=== PATIENT | male | born 1970 | race Caucasian/White ===

== ENCOUNTER 2018-06-18 22:39 | Emergency (ER) | payer OTHER, SELFPAY ==
[2018-06-18 22:40] VITALS: BP 132/75; PULSE 102; RESP 18; TEMP 36.6; O2SAT 98; BMI 28.6
--- NOTE | 2018-06-18 22:55 | US_ITS ---
STUDY: VENOUS DOPPLER ULTRASOUND - BILATERAL LOWER EXTREMITIES REASON FOR EXAM: Male, 48 years old. Left lower leg swelling and redness TECHNIQUE: Ultrasound evaluation of the deep vein system to include garduno-scale imaging and compression was performed. Garduno-scale imaging and Doppler sonographic evaluation, including duplex spectral analysis and qualitative color flow sonography, was performed. COMPARISON: None. FINDINGS: RIGHT LEG Common Femoral Vein: Normal compression, spontaneity and augmentation. Normal color Doppler. Common Femoral Vein/Greater Saphenous Junction: Normal compression, spontaneity and augmentation. Normal color Doppler. Deep Femoral Vein: Normal compression, spontaneity and augmentation. Normal color Doppler. Femoral Proximal: Normal compression, spontaneity and augmentation. Normal color Doppler. Femoral Middle: Normal compression, spontaneity and augmentation. Normal color Doppler. Femoral Distal: Normal compression, spontaneity and augmentation. Normal color Doppler. Popliteal Vein: Normal compression, spontaneity and augmentation. Normal color Doppler. Posterior Tibial Vein: Normal compression, spontaneity and augmentation. Normal color Doppler. Peroneal Vein: Normal compression, spontaneity and augmentation. Normal color Doppler. LEFT LEG Common Femoral Vein: Normal compression, spontaneity and augmentation. Normal color Doppler. Common Femoral Vein/Greater Saphenous Junction: Normal compression, spontaneity and augmentation. Normal color Doppler. Deep Femoral Vein: Normal compression, spontaneity and augmentation. Normal color Doppler. Femoral Proximal: Normal compression, spontaneity and augmentation. Normal color Doppler. Femoral Middle: No compression, spontaneity and augmentation. No color Doppler. Femoral Distal: No compression, spontaneity and augmentation. No color Doppler. Popliteal Vein: No compression, spontaneity and augmentation. No color Doppler. Posterior Tibial Vein: No compression, spontaneity and augmentation. No color Doppler. Peroneal Vein: Normal compression, spontaneity and augmentation. Normal color Doppler. Lesser saphenous venous thrombosis. US/Venous Duplex Imag/Tanvir Extrem IMPRESSION: DVT posterior tibial to the mid femoral vein and lesser saphenous vein Electronically Signed: Torres Laguna MD at 23:44 EST , Service support ,
--- NOTE | 2018-06-18 23:54 | ED.DCSUM_ITS ---
- ER Visit Summary Date of Service: 06/18/18 Chief Complaint: Left leg pain and swelling History of Present Illness: The patient is a 48 M who presents with left leg pain and swelling. It began 3 days ago. He had a history of similar symptoms 2 months ago and was diagnosed with superficial thrombosis but no DVT. He states that today his swelling and pain were increased. He describes it as moderate in severity. He denies any chest pain shortness of breath lightheadedness or dizziness. He frequently travels for work and drives often. He states that recently in a 12-hour day he was only out of the vehicle for about an hour and a half. He is also a heavy smoker. No prior history of DVT pulmonary embolism no known cancer no known coagulopathies. He was initially seen at an outside emergency department he did not have ultrasound available at the time so they contacted us and the patient was sent here for ultrasound. They did draw blood work prior to sending the patient. Physical Examination: Afebrile heart rate 102 vitals otherwise normal Moist mucous membranes Heart regular rate and rhythm Lungs clear Abdomen soft Left lower extremity edema and mild erythema he has tenderness on palpation in the calf he has an easily palpable dorsalis pedis pulse brisk capillary refill normal sensation light touch normal motor function Test Results: Labs were faxed to us from [place]. BMP notable for sodium 132, glucose 189. CBC notable for hemoglobin 13.6. Platelets are 113. INR normal at 1.0. prototype technician called me with venous duplex results which were positive for DVT from femoral vein to posterior tibial vein. Emergency Department Course and Treatment: Patient does not have signs or symptoms to suggest pulmonary embolism. On exam he does not have phlegmasia cerulea dolens or phlegmasia alba dolens. We will start patient on Xarelto. He was given his first dose here. He was given clear signs and symptoms to monitor for and signs and symptoms which should prompt immediate return to the emergency department for reevaluation. All questions answered bedside. Patient and family agreeable to plan. Patient does not have a primary care physician. He was referred to Dr. Mendez who is next on the no doc PCP referral list. Treatment Plan: [] Disposition: Discharge Impression: Left lower extremity DVT This note was generated with TreS[employer] dictation software. It may contain incorrect words, spelling, and punctuation that were not noted in review of the chart prior to signing ED Disposition - Plan for ED Patient: Chief Complaint: Lower Extremity Injury Referrals: Care Physician,No Primary [Primary Care Provider] -
--- NOTE | 2018-06-18 23:56 | ED.DEP ---
ED Disposition - Plan for ED Patient: Chief Complaint: Lower Extremity Injury Instructions: ED DVT Prescriptions: Rivaroxaban [Xarelto] 15 mg PO BID #42 tab Referrals: Care Physician,No Primary [Primary Care Provider] - Tomas Mendez MD [STAFF PHYSICIAN] -
[2018-06-19] MEDS: Rivaroxaban 15 MG Tablet PO (00:05)
== END 2018-06-19 00:09 | disposition home or self-care (01) ==
LOC: ED 23:35
PROVIDERS: Emergency Provider Emergency Medicine
DX: I82.402 Acute embolism and thrombosis of unspecified deep veins of left lower extremity (principal); Z72.0 Tobacco use
CPT/HCPCS: 93970; 99283

== ENCOUNTER 2018-06-20 02:18 | Inpatient (IN) | payer OTHER, SELFPAY ==
[2018-06-20] VITALS (13 sets, daily range): BP systolic 126–152; BP diastolic 74–88; PULSE 66–96; RESP 16–20; TEMP 36.7–37.1; O2SAT 95–100; BMI 29.1; BMI 28.0
--- NOTE | 2018-06-20 03:43 | EKG12_ITS ---
Test Reason : EDEMA Blood Pressure : / mmHG Vent. Rate : 079 BPM Atrial Rate : 079 BPM P-R Int : 156 ms QRS Dur : 106 ms QT Int : 352 ms P-R-T Axes : 034 046 023 degrees QTc Int : 403 ms Normal sinus rhythm Normal ECG Confirmed by QUINCY ELAM, CLEOPATRA ([id number]), fashion editor PRECIOUS YUN ([id number]) on 06/22/2018 4:16:07 PM Referred By: BARBARA Confirmed By:CLEOPATRA MATHEW MD
--- NOTE | 2018-06-20 03:43 | CT_ITS ---
STUDY: CTA CHEST REASON FOR EXAM: Male, 48 years old. Deep venous thrombus. RADIATION DOSAGE (If Supplied By Facility): CTDIvol = ( 12.34 ) mGy, DLP = ( 572.85 ) mGycm TECHNIQUE: The examination was performed with the intravenous administration of 100 ml of Isovue 370 contrast material. Post-processing of the angiographic images was performed, with multiplanar reformation and 3D reconstruction. Individualized dose optimization techniques were used for this CT. COMPARISON: Venous Doppler ultrasound June 18, 2018. FINDINGS: Normal enhancement of the main pulmonary artery and right and left pulmonary arteries. Filling defects involving branches of the left lower lobe pulmonary artery compatible with pulmonary emboli and axial image 100 series 2. Normal thoracic aorta and visualized great vessels. There is no demonstrated aortic dissection. Normal heart and pericardium. Enlarged AP window lymph nodes with the largest measuring 1.7 x 1.3 cm. Normal hilar regions. Normal visualized trachea and bronchi. The lungs are well expanded. 1.6 cm cavitary nodule posterior aspect of the left upper lobe. Normal chest wall structures. Normal osseous structures. Normal visualized upper abdomen. CT/CTA Chest W/WO Contrast IMPRESSION: Small pulmonary emboli involving branches of the left lower lobe pulmonary artery. Left upper lobe cavitary lesion. Considerations include cavitating pneumonia, tuberculosis, rare fungal infections or less likely malignancy. Mediastinal lymphadenopathy. N.B. : The above information has been verbally conveyed by Timothy Jones MD to Dr. Brett MD, on 06/20/2018 05:30:28 (ET). Electronically Signed: Timothy Jones MD at 5:31 EST , Service support ,
--- NOTE | 2018-06-20 03:46 | ED.RN ---
NO OLD EKGS IN MUSE
[2018-06-20] MEDS: 0.9% Normal Saline 1,000 ML 999 ML IV (04:04)
[2018-06-20 04:16] LABS: International Normalized Ratio 1.5; Prothrombin Time (Protime)PT. 18.2 SECONDS (11.7-14.9)
[2018-06-20 04:21] LABS: Absolute Lymphocyte Count 1.66 X10^3/ul (0.83-4.51); Absolute Neutrophil Count 4.6 X10^3/uL (2.0-7.7); Basophil# 0.01 X10^3/uL; Basophil% 0.1 % (0-1); Eosinophil# 0.15 X10^3/uL; Eosinophils% 2.1 % (0-5); Hematocrit 42.8 % (40-54); Hemoglobin 13.8 g/dl (13.0-16.5); Lymphocyte # 1.66 X10^3/ul (4.0); Lymphocyte % 23.1 % (19-41); Mean Corp Hgb Conc 32.2 g/gl (32-36); Mean Corpuscular Hgb 29.2 pg (27.0-32.0); Mean Corpuscular Volume 90.5 fL (80-94); Mean Platelet Vol. 10.6 fl (6.2-12.0); Monocyte% 11.1 % (0-10); Neutrophil # 4.55 X10^3/uL (2.7-7.7); Neutrophil % 63.3 % (47-70); POSITIVE COUNT NO; POSITIVE DIFFERENTIAL NO; POSITIVE MORPHOLOGY NO; Platelet Count 126 K/mm3 (150-450); RBC Distribution Width CV 14.4 % (11.6-14.6); RBC Distribution Width SD 47.2 fl (35.1-43.9); Red Blood Count 4.73 M/mm3 (4.6-6.2); White Blood Count 7.2 K/mm3 (4.4-11.0)
[2018-06-20 04:24] LABS: Anion Gap 8 (5-15); BUN 14 mg/dL (7-18); BUN/Creat Ratio 12.8 RATIO (10-20); Calcium,Total 8.7 mg/dL (8.5-10.1); Chloride 107 mmol/L (98-107); Creatinine, Serum 1.09 mg/dL (0.70-1.30); EST Glomerular Filtration Rate 77 mL/min (>60); Est Glom Filt Rate - Afr Amer 93 mL/min (>60); Estimated Creatinine Clearance 93.66 ml/min; Glucose 102 mg/dL (74-106); Potassium 4.1 mmol/L (3.5-5.1); Sodium Level 141 mmol/L (136-145)
--- NOTE | 2018-06-20 05:42 | HP.PCM_ITS ---
Problem List (1) Pulmonary embolism Status: Acute Qualifiers: Chronicity: acute (2) Left leg DVT Status: Acute Qualifiers: Affected thrombotic vein of extremity: unspecified vein of extremity Chronicity: acute Qualified Code(s): I82.402 - Acute embolism and thrombosis of unspecified deep veins of left lower extremity (3) Cavitary lesion of lung Status: Acute (4) Elevated BP without diagnosis of hypertension Status: Acute (5) Tobacco use Status: Chronic History of Present Illness Date of Admission: 06/20/18 Chief Complaint: Worsened LLE edema, pain, lightheadness, dizziness. The patient is a 48 y/o M w/ PMHx: Tobacco use, Recent LLE DVT Dx on 06/18/18 (DVT US w/ venous duplex results which were positive for DVT from femoral vein to posterior tibial vein) following onset LLE pain, edema suspected secondary to his 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 [place] ED on 06/20/18 with history of onset increasing LLE pain, edema as well as lightheadedness, dizziness and difficulty ambulating secondary to the severity of his LLE pain. He also notes history of URI w/ cough, congestion, rhinorrhea, dyspnea ~ 1 month prior, notes his entire work staff contracted the same illness and since has improved, but still has occasional cough. 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 In the ED work-up included T 98.1, heart rate 90, BP 144/87, respiratory rate 16, 98% on room air, CBC with WBC 7.2, hemoglobin 13.8, platelet 126 without market shift, coags with PT 18.2, INR 1.5, BMP unremarkable, troponin <0.015, CTPA with small pulmonary emboli involving branches of the left lower lobe pulmonary artery, left upper lobe cavi tary lesion concerning for possible pneumonia, tuberculosis, rare fungal infection with less likely malignancy as well as mediastinal lymphadenopathy. In the ED patient administered NS and initiated on heparin drip. Past Medical History Past Medical History (Chronic Problems): Chronic Problems Tobacco use (Chronic) Allergies No Known Allergies Allergy (Verified 06/20/18 02:22) Home Medications: Ambulatory Orders Medication Instructions Recorded Rivaroxaban [Xarelto] 15 mg PO BID #42 tab 06/18/18 Surgical History: no surgical history Psychiatric History: No pertinent psych hx Lives: Spouse/ Significant Other Smoking Status: Current every day smoker - 2 ppd since teen. Tobacco Use: Cigarettes Alcohol: None Drugs: None - *Family History Maternal History Items: Cancer Paternal History Items: Heart Disease, Hypertension Review of Systems Constitutional: Reports: Malaise, Weakness, Fatigue. Denies: Chills, Fever, Weight Change HEENT: Denies: Head Aches, Sinus Congestion, Sinus Drainage Cardiovascular: Reports: Light Headedness. Denies: Chest Pain, Palpitations Respiratory: Reports: Cough. Denies: Shortness of breath at rest, Sputum production Gastrointestinal: Denies: Abdominal Pain, Nausea, Vomiting Genitourinary: Denies: Dysuria Musculoskeletal: Reports: Leg Pain. Denies: Joint Pain, Joint Tenderness Skin: Denies: Rash, Wounds Neurological: Denies: Numbness, Tingling, Focal weakness Psychiatric: Denies: Anxiety, Depression, Homicidal Ideations, Suicidal Ideations Hematologic/ Lymphatic: Denies: Easy Bruising, Easy Bleeding VTE Information - Inpt Only VTE Present on Admission: No VTE Mechan Device Prophylaxis: SCD's VTE Pharm Prophylaxis ordered?: Yes Patient Problems: Active and Suspected Problems Pulmonary embolism (Acute) Left leg DVT (Acute) Cavitary lesion of lung (Acute) Elevated BP without diagnosis of hypertension (Acute) Subjective: Seated upright in the ED bed, fatigued appearing, ongoing LLE pain he notes. Objective: Physical Examination: General: awake, alert, oriented x 3 and cooperative, seated upright in the ED bed, notes discomfort to the LLE. Skin: normal color, turgor, no icterus, cyanosis. HEENT: AT/NC, EOMI, PERRLA, mildly dry MM, no carotid bruits or JVD noted. Lungs: Diminished BS BL, > bases, mild effort, no rales, ronchi or wheezing. Heart: regular rate and rhythm; no gallop, rub audible. Abdomen: soft, NTTP, ND, normal BS, no HSM. Extremities: no cyanosis, clubbing, LLE notable edema ankle to proximal thigh, TTP. Neurological: patient awake, alert, oriented x 3; cognitive function intact; pupils equally reactive to light and accomodation; cranial nerves II-XII grossly normal, moving all 4 extremities, no focal deficits, strength moderately globally decreased secondary to acute presentation. Psychiatric: affect appears fatigued, no acute evidence of depressive or anxiety feelings. - Physical Exam Vital Signs Temp Pulse Resp BP Pulse Ox 98.1 F 90 16 144/87 H 98 06/20/18 02:19 06/20/18 02:19 06/20/18 02:19 06/20/18 02:19 06/20/18 02:19 Oxygen Delivery Method Room Air Weight: 220 lb 10.923 oz Body Mass Index (BMI) 29.1 Laboratory Tests Past 24 Hrs 06/20/18 06/20/18 06/20/18 03:50 03:50 03:50 WBC 7.2 RBC 4.73 Hgb 13.8 Hct 42.8 MCV 90.5 MCH 29.2 MCHC 32.2 RDW 14.4 RDW Differential 47.2 H Plt Count 126 L MPV 10.6 Immature Gran % (Auto) 0.300 Neut % (Auto) 63.3 Lymph % (Auto) 23.1 Monona % (Auto) 11.1 H Eos % (Auto) 2.1 Baso % (Auto) 0.1 Absolute Neuts (auto) 4.6 Absolute Lymphs (auto) 1.66 Total Counted Not Reportable PT 18.2 H INR 1.5 Sodium 141 Potassium 4.1 Chloride 107 Carbon Dioxide 26.0 Anion Gap 8 BUN 14 Creatinine 1.09 Estim Creat Clear Calc 93.66 Est GFR (MDRD) Af Amer 93 Est GFR (MDRD) Non-Af 77 BUN/Creatinine Ratio 12.8 Glucose 102 Calcium 8.7 Troponin I < 0.015 Assessment/Plan All Active Problems Pulmonary embolism (Acute) Left leg DVT (Acute) Cavitary lesion of lung (Acute) Elevated BP without diagnosis of hypertension (Acute) The patient is a 48 y/o M w/ PMHx: Tobacco use, Recent LLE DVT Dx on 06/18/18 following onset LLE pain, edema suspected secondary to his 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 [place] ED on 06/20/18 with history of onset increasing LLE pain, edema as well as lightheadedness, dizziness and difficulty ambulating secondary to the severity of his LLE pain. (1) Lightheadedness, Dizziness w/ recent acute LLE Extensive DVT secondary to now Acute Pulmonary Embolism: EKG without acute findings, CTPA with small pulmonary emboli involving branches of the left lower lobe pulmonary artery, left upper lobe cavitary lesion concerning for possible pneumonia, tuberculosis, rare fungal infection with less likely malignancy as well as mediastinal lymphadenopathy. Patient w/ notable driving history with infrequent breaks as possible risk for DVT/PE; however, findings on CTPA w/ cavitary lesion concerning. Will admit to PCU, maintain on cardiac telemetry. Will obtain ECHO, BNP. Will maintain on heparin drip. (2) Incidentally Noted left upper lobe cavitary lesion: CTPA w/ noted left upper lobe cavitary lesion concerning for possible pneumonia, tuberculosis, rare fungal infection with less likely malignancy as well as mediastinal lymphadenopathy, will consult Pulmonary medicine, QF gold, sputum, urine an tigens, respiratory viral panel requested. No history of incarceration. Was in the and did travel [id number]. (3) Acute Intractable LLE Pain w/ Recent Extensive Acute LLE DVT Dx: Recent DVT US 06/18/18 w/ venous duplex results which were positive for DVT from femoral vein to posterior tibial vein, concern for worsened status, will admit to [facility], transition to heparin drip, maintain on fall precautions, frequent positioning, po/IV pain regimen, oral/IV PRN regimen, anti-emetics. If not improving or continued LE worsened edema may need to consider CTA LLE with runoff as well as vascular consultation. (4) Tobacco Abuse: Encouraged cessation, inpatient consultation per RT, NR if desired. (5) Elevated BP without HTN Dx: Elevated BP, possibly secondary to pain, continue to monitor, PRN hydralazine. (6) DVT Prophylaxis: SCD RLE, heparin drip as noted. Code Visit Inpatient E&M: 22438 Init Hosp L3
--- NOTE | 2018-06-20 05:47 | ED.VISSUMM ---
- ER Visit Summary Date of Service: 06/20/18 Chief Complaint: DVT History of Present Illness: The patient is a 48 M who presents with a DVT. I recently saw him in the emergency department one day ago. He was diagnosed with stents of DVT at that point from mid femoral vein to posterior tibial vein. We started him on Xarelto. He was given clear return precautions. He states that he has developed increased pain and swelling in the last day. He has been compliant with his Xarelto. His pain is really only when he ambulates however. When laying with his leg elevated he does not really have significant pain. Today however he also developed some lightheadedness. He states he had to sit down. No associated chest pain or shortness of breath. No vomiting. No abdominal pain. Denies any weakness or paresthesias. Physical Examination: Afebrile vitals unremarkable Resting comfortably no distress Moist mucous membranes Heart regular rate and rhythm Lungs clear Abdomen soft Patient does have edema of the left lower extremity only no edema on the right he has some mild erythema of the left lower leg his muscle compartments are soft there is a palpable cord in the calf he has a an easily palpable 2+ dorsalis pedis pulse with brisk capillary refill and normal sensation light touch Test Results: Labs notable for platelets 126, INR 1.5. Troponin negative. EKG shows sinus rhythm at a rate of 79. CTA of the chest shows small left lower lung pulmonary emboli as well as a cavitary lesion in the left upper lobe. Emergency Department Course and Treatment: Patient does have small pulmonary emboli. Given the extent of his DVT and increasing pain and swelling he will be admitted. After discussion with hospitalist we will transition to heparin which they will start on the floor. I also discussed the findings of the cavitary lesion with the patient. Plan is for pulmonary consult as an inpatient. He does not have infectious symptoms such as fevers cough shortness of breath. He does not have leukocytosis. He is a heavy smoker. 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 Treatment Plan: [] Disposition: Admit Impression: Pulmonary embolism Cavitary left upper lung lesion This note was generated with Bridgest[employer] dictation software. It may contain incorrect words, spelling, and punctuation that were not noted in review of the chart prior to signing ED Disposition - Plan for ED Patient: Chief Complaint: Edema Referrals: Care Physician,No Primary [Primary Care Provider] -
--- NOTE | 2018-06-20 06:37 | NURSING ---
119 WHITE PE, CAVITARY LUNG LESION
--- NOTE | 2018-06-20 06:51 | ECHOD_ITS ---
Reason For Study: EMBOLI Procedure This was a 2D Doppler, Color Flow transthoracic echocardiogram. Exam performed portable in patient room. Left Ventricle Normal LV size. Left ventricular systolic function is normal. The estimated ejection fraction is 55 %. Normal diastology for age. No regional wall motion abnormalities noted. Right Ventricle Normal RV size. Normal systolic function. Atria Normal left atrium. Normal right atrium. Mitral Valve Normal mitral valve. Tricuspid Valve Normal tricuspid valve. Aortic Valve Normal aortic valve. Trisinus/trileaflet aortic valve. Pulmonic Valve Normal pulmonic valve. Great Vessels Normal aortic root. The pulmonary artery is normal size. Normal inferior vena cava. Pericardium/Pleural No pericardial effusion. MMode/2D Measurements & Calculations LVIDd: 4.9 cm IVSd: 1.3 cm Ao root diam: 4.1 cm LVIDs: 3.5 cm LVPWd: 1.1 cm RVDd: 4.1 cm FS: 28.8 % LAV(MOD-bp): 68.1 ml LA A4 area: 21.2 cm2 LA dimension(2D): 4.0 cm LAV(MOD-bp) Indexed: 30.5 ml/m2 LAV(MOD-sp2): 63.7 ml LAV(MOD-sp4): 63.2 ml RA A4 area: 14.0 cm2 Time Measurements MV dec time: 0.28 sec Doppler Measurements & Calculations MV E max satya: 53.5 cm/sec Lat Peak E' Satya: 10.3 cm/sec Med Peak E' Satya: 8.2 cm/sec MV A max satya: 36.7 cm/sec E/E' lat: 5.2 E/E' med: 6.5 MV E/A: 1.5 Ao V2 max: 104.7 cm/sec LV V1 max: 84.9 cm/sec Ao max P.4 mmHg LV V1 max P.9 mmHg Interpretation Summary Normal LV size. Left ventricular systolic function is normal. The estimated ejection fraction is 55 %. Normal diastology for age. Structurally normal valves. Ordering Physician: Mattie Serrano Performed By: Thea Green, DELORES, RVT
[2018-06-20 07:54] LABS: Magnesium 1.9 mg/dL (1.6-2.6); Partial Thromboplast Time 36.1 Seconds (24.1-36.2)
[2018-06-20 08:08] LABS: BNP,B-Type NATRIURETIC PEPTIDE 5.5 pg/mL (0-100)
[2018-06-20] MEDS: HEPARIN/D5w 25,000 UNITS 25,000 UNITS/250 ML IV.SOLN. 14 UNITS IV (08:16)
[2018-06-20] MEDS: 0.9% Normal Saline 1,000 ML 125 ML IV (08:18)
[2018-06-20] MEDS: Famotidine 20 MG Tablet PO ×2 (08:18→22:23)
[2018-06-20] MEDS: Heparin Injection (Vial) 5,000 UNIT/ML VIAL 7500 UNIT IV (08:19)
--- NOTE | 2018-06-20 08:30 | PCM.PN.BLA ---
Progress Note Patient is a 48-year-old gentleman diagnosed with left lower extremity extensive DVT on 06/18/2018 discharged home on Xarelto took 2 doses presented with lightheadedness and dizziness imaging studies demonstrated acute pulmonary embolism. Patient admitted to a monitored bed patient is currently undergoing evaluation. Lightheadedness, Dizziness w/ recent acute LLE Extensive DVT secondary to now Acute Pulmonary Embolism patient was also found to have a left upper lobe cavitary lesion. Started on heparin admitted to a monitored bed with consultation placed to pulmonary medicine Patient seen and examined. His initial assessment including history and physical diagnostic data and management orders reviewed. Case was discussed with patient as well as the . Clinical Impression(s) from Imaging Studies Chest CTA 06/20/18 03:43 IMPRESSION: Small pulmonary emboli involving branches of the left lower lobe pulmonary artery. Left upper lobe cavitary lesion. Considerations include cavitating pneumonia, tuberculosis, rare fungal infections or less likely malignancy. Mediastinal lymphadenopathy. N.B. : The above information has been verbally conveyed by Timothy Jones MD to Dr. Brett MD, on 06/20/2018 05:30:28 (ET). Electronically Signed: Timothy Jones MD at 5:31 EST , Service support ,
--- NOTE | 2018-06-20 08:42 | PN_ITS ---
Progress Note Patient is a 48-year-old gentleman diagnosed with left lower extremity extensive DVT on 06/18/2018 discharged home on Xarelto took 2 doses presented with lightheadedness and dizziness imaging studies demonstrated acute pulmonary embolism. Patient admitted to a monitored bed patient is currently undergoing evaluation. Lightheadedness, Dizziness w/ recent acute LLE Extensive DVT secondary to now Acute Pulmonary Embolism patient was also found to have a left upper lobe cavitary lesion. Started on heparin admitted to a monitored bed with co nsultation placed to pulmonary medicine Patient seen and examined. His initial assessment including history and physical diagnostic data and management orders reviewed. Case was discussed with patient as well as the . Clinical Impression(s) from Imaging Studies Chest CTA 06/20/18 03:43 IMPRESSION: Small pulmonary emboli involving branches of the left lower lobe pulmonary artery. Left upper lobe cavitary lesion. Considerations include cavitating pneumonia, tuberculosis, rare fungal infections or less likely malignancy. Mediastinal lymphadenopathy. N.B. : The above information has been verbally conveyed by Timothy Jones MD to Dr. Brett MD, on 06/20/2018 05:30:28 (ET). Electronically Signed: Timothy Jones MD at 5:31 EST , Service support ,
--- NOTE | 2018-06-20 09:28 | NURSING ---
report called to Lucila DESIR
--- NOTE | 2018-06-20 10:14 | PCM.CONS.GEN ---
Problem List (1) Pulmonary embolism Status: Acute Qualifiers: Chronicity: acute (2) Left leg DVT Status: Acute Qualifiers: Affected thrombotic vein of extremity: unspecified vein of extremity Chronicity: acute Qualified Code(s): I82.402 - Acute embolism and thrombosis of unspecified deep veins of left lower extremity (3) Cavitary lesion of lung Status: Acute (4) Tobacco use Status: Chronic (5) Elevated BP without diagnosis of hypertension Status: Acute Reason for Consult Date of Consultation: 06/20/18 Reason for Consultation: Abnormal CT History of Present Illness: The patient is a 48 year old M, with no reported past medical history, who presented to [facility] on 06/20/2018 secondary to acute left lower extremity pain associated with a DVT. Patient was seen previously in the emergency room with complaints of left lower extremity pain. Patient had originally had a superficial phlebitis, per progressed to a DVT. Patient was placed on Xarelto therapy on Thursday. Patient's pain continued to progress, so he was recommended to come back to the emergency room. In the emergency room, patient had a CT scan of the chest and noted to have pulmonary emboli. Patient was also noted to have a cavitary lesion of the left upper lobe. Patient was placed on a heparin drip and admitted to the floor. On my arrival, patient was not reporting any dyspnea, but stated that his exertional tolerance was significantly limited secondary to left lower extremity pain. Patient denied any fever, chills, nausea, vomiting or diaphoresis. No chest pain is reported. Patient did not have any weakness or paresthesia, but stated that his ability to stand was severely limited secondary to pain. Patient stated dangling his left leg led to severe pain. Patient denies any unintentional weight loss. Patient denies any hemoptysis. Patient does have a chronic productive cough of clear sputum, typically with waking in the morning. Patient does report a [id number] smoking history and denied any previous history of abnormal CT scans. 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 Patient does report being in the previously and stationed in [place]. Patient denies any history of tuberculosis. Patient has not been incarcerated. Patient is unaware of a family history of cancer or clotting disorders. Patient has never had a DVT previously. Patient denies any illicit drug use or excessive alcohol. Review of systems otherwise negative x10 systems. Past Medical History Past Medical History (Chronic Problems): Chronic Problems Tobacco use (Chronic) Allergies No Known Allergies Allergy (Verified 06/20/18 02:22) Home Medications: Ambulatory Orders Medication Instructions Recorded Rivaroxaban [Xarelto] 15 mg PO BID #42 tab 06/18/18 Surgical History: no surgical history Psychiatric History: No pertinent psych hx Lives: Spouse/ Significant Other Smoking Status: Current every day smoker Tobacco Use: Cigarettes Alcohol: None Drugs: None - *Family History Maternal History Items: Cancer Paternal History Items: Heart Disease, Hypertension Review of Systems Comment: See HPI Patient Problems: Active and Suspected Problems Pulmonary embolism (Acute) Left leg DVT (Acute) Cavitary lesion of lung (Acute) Elevated BP without diagnosis of hypertension (Acute) Objective: CT scan of the chest was personally reviewed showing left lower lobe pulmonary emboli, apical emphysematous changes and a 1.2 x 1.6 cavitary lesion in the posterior aspect of the left upper lobe. No lytic lesions of the spine were appreciated. Mediastinal lymphadenopathy was appreciated. - Physical Exam General: Alert, Oriented x3, Cooperative, No apparent distress, Well developed, Well nourished, - - Speaks in full sentences. HEENT: Atraumatic, PERRLA, EOMI, Normocephalic, - - No scleral icterus or injection noted. Oral: Moist Mucosa, No Gingival or Mucosal Lesions/ Ulcerations Neck: Supple, No JVD, No Nodes, Trachea Midline Lungs: No rhonchi, No wheeze, No rales, Diminished, - - Symmetric expansion. No dullness to percussion. Cardiovascular: Regular rate, Regular Rhythm, Normal S1, Normal S2, No murmurs, No rub noted, No Gallop Abdomen: Bowel Sounds Present, Soft, Non Tender, Non-Distended Extremities: No clubbing, No cyanosis, No edema, Capillary Refill Less than 3 Seconds Skin: No rashes, No breakdown Musculoskeletal: No Tenderness to Palpation of Joints or Extremities Lymphatic: No Cervical, Supraclavicular, or Inguinal Adenopathy Neurological: Cranial nerves II-XII grossly intact, Neuro grossly intact, Motor Exam 5/5 strength throughout Psych/Mental Status: Alert and oriented to time, place, person, mood and affect Vital Signs Temp Pulse Resp BP Pulse Ox 36.9 C 74 16 135/83 H 96 06/20/18 07:09 06/20/18 07:09 06/20/18 07:09 06/20/18 07:09 06/20/18 07:10 Oxygen Delivery Method Room Air Weight: 99 kg Body Mass Index (BMI) 28.0 Microbiology Past 72 Hours 06/20/18 08:00 Legionella Antigen - Final Urine, Random 06/20/18 08:00 Streptococcus pneumoniae Antigen (M - Final Urine, Clean Catch Laboratory Tests Past 24 Hrs 06/20/18 06/20/18 06/20/18 03:50 03:50 03:50 WBC 7.2 RBC 4.73 Hgb 13.8 Hct 42.8 MCV 90.5 MCH 29.2 MCHC 32.2 RDW 14.4 RDW Differential 47.2 H Plt Count 126 L MPV 10.6 Immature Gran % (Auto) 0.300 Neut % (Auto) 63.3 Lymph % (Auto) 23.1 [place] % (Auto) 11.1 H Eos % (Auto) 2.1 Baso % (Auto) 0.1 Absolute Neuts (auto) 4.6 Absolute Lymphs (auto) 1.66 Total Counted Not Reportable PT 18.2 H INR 1.5 APTT Sodium 141 Potassium 4.1 Chloride 107 Carbon Dioxide 26.0 Anion Gap 8 BUN 14 Creatinine 1.09 Estim Creat Clear Calc 93.66 Est GFR (MDRD) Af Amer 93 Est GFR (MDRD) Non-Af 77 BUN/Creatinine Ratio 12.8 Glucose 102 Calcium 8.7 Magnesium Troponin I < 0.015 B-Natriuretic Peptide TB Test (QFT) Nil TB Test (QFT) Mitogen TB Test (QFT) Antigen TB Test Antigen - Nil TB Test (QFT) TB Positive Criteria TB Test (QFT) Interp Miscellaneous Test 06/20/18 06/20/18 06/20/18 07:06 07:06 07:06 WBC RBC Hgb Hct MCV MCH MCHC RDW RDW Differential Plt Count MPV Immature Gran % (Auto) Neut % (Auto) Lymph % (Auto) [place] % (Auto) Eos % (Auto) Baso % (Auto) Absolute Neuts (auto) Absolute Lymphs (auto) Total Counted PT INR APTT Sodium Potassium Chloride Carbon Dioxide Anion Gap BUN Creatinine Estim Creat Clear Calc Est GFR (MDRD) Af Amer Est GFR (MDRD) Non-Af BUN/Creatinine Ratio Glucose Calcium Magnesium 1.9 Troponin I B-Natriuretic Peptide 5.5 TB Test (QFT) Nil Cancelled TB Test (QFT) Mitogen Cancelled TB Test (QFT) Antigen Cancelled TB Test Antigen - Nil Cancelled TB Test (QFT) Cancelled TB Positive Criteria Cancelled TB Test (QFT) Interp Cancelled Miscellaneous Test 06/20/18 06/20/18 07:06 07:06 WBC RBC Hgb Hct MCV MCH MCHC RDW RDW Differential Plt Count MPV Immature Gran % (Auto) Neut % (Auto) Lymph % (Auto) [place] % (Auto) Eos % (Auto) Baso % (Auto) Absolute Neuts (auto) Absolute Lymphs (auto) Total Counted PT INR APTT 36.1 Sodium Potassium Chloride Carbon Dioxide Anion Gap BUN Creatinine Estim Creat Clear Calc Est GFR (MDRD) Af Amer Est GFR (MDRD) Non-Af BUN/Creatinine Ratio Glucose Calcium Magnesium Troponin I B-Natriuretic Peptide TB Test (QFT) Nil TB Test (QFT) Mitogen TB Test (QFT) Antigen TB Test Antigen - Nil TB Test (QFT) TB Positive Criteria TB Test (QFT) Interp Miscellaneous Test Pending Clinical Impression(s) from Imaging Studies Chest CTA 06/20/18 03:43 IMPRESSION: Small pulmonary emboli involving branches of the left lower lobe pulmonary artery. Left upper lobe cavitary lesion. Considerations include cavitating pneumonia, tuberculosis, rare fungal infections or less likely malignancy. Mediastinal lymphadenopathy. N.B. : The above information has been verbally conveyed by Timothy Jones MD to Dr. Brett MD, on 06/20/2018 05:30:28 (ET). Electronically Signed: Timothy Jones MD at 5:31 EST , Service support , Assessment/Plan All Active Problems Pulmonary embolism (Acute) Left leg DVT (Acute) Cavitary lesion of lung (Acute) Elevated BP without diagnosis of hypertension (Acute) RECOMMENDATIONS: 1. Continue with heparin drip 2. Arrange for CT-guided biopsy, tomorrow if possible 3. Walking oximetry prior to discharge 4. Await echocardiogram 5. Nicotine patches if requested 6. Outpatient complete PFT IMPRESSIONS: 1. Acute DVT/PE Patient was significant left lower extremity DVT and findings of acute pulmonary embolism. Patient was placed on Xarelto previously, but should be on heparin drip to facilitate interventions while hospitalized. Patient is currently doing well on room air. An echocardiogram has been ordered for evaluation of cor pulmonale. Patient will need a walking oximetry prior to discharge, but anticipate supplemental oxygen will not be required. Patient will require 3-6 months of anticoagulation at a minimum. Some concern for cavitary mass and embolism but this may be a paraneoplastic syndrome. 2. Left upper lobe cavitary mass Patient does have a cavitary left upper lobe mass. Given patient's concomitant PE, concern for malignancy is significant. Other possible etiologies would include an anaerobic infection such as Nocardia or actinomyces. Given size, biopsy would be recommended as patient does not report significant fever, leukocytosis or change in productive cough. 3. Probable COPD with active tobacco use Patient has an extensive history of smoking and emphysematous changes noted on CT scan of the chest. Patient will need an outpatient pulmonary function test for quantification and clarification of lung function. Patient is relatively asymptomatic at this time. Would not recommend steroid therapy. Bronchodilators would not be unreasonable. Code Visit Inpatient E&M: 52139 Init Hosp L3
--- NOTE | 2018-06-20 14:37 | NURSING ---
pt placed in negative pressure after dr anthony progress notes were read. explanation given to pt and family.
[2018-06-20 14:57] LABS: Partial Thromboplast Time 58.1 Seconds (24.1-36.2)
[2018-06-20] MEDS: Sodium Chloride 3% 500 ML IV.SOLN. INHALATION ×2 (15:50→23:02)
[2018-06-20] MEDS: Acetaminophen 325 MG Tablet 650 MG PO (18:08)
[2018-06-20 20:58] LABS: Partial Thromboplast Time 46.1 Seconds (24.1-36.2)
[2018-06-20] MEDS: oxyCODONE 5 MG Tablet PO (22:13)
[2018-06-20] MEDS: Heparin Injection (Vial) 5,000 UNIT/ML VIAL IV (22:15)
[2018-06-21] VITALS (11 sets, daily range): BP systolic 129–154; BP diastolic 77–89; PULSE 65–102; RESP 16–20; TEMP 36.2–37.2; O2SAT 95–97
[2018-06-21] MEDS: HEPARIN/D5w 25,000 UNITS 25,000 UNITS/250 ML IV.SOLN. 14 UNITS IV ×2 (01:36→19:16)
[2018-06-21] MEDS: Morphine 2 MG/ML Syringe IV (01:53)
[2018-06-21] MEDS: 0.9% NaCl Peripheral Flush Adult/Peds IV (01:55)
[2018-06-21 05:20] LABS: Hematocrit 40.6 % (40-54); Hemoglobin 13.1 g/dl (13.0-16.5); Mean Corp Hgb Conc 32.3 g/gl (32-36); Mean Corpuscular Hgb 28.9 pg (27.0-32.0); Mean Corpuscular Volume 89.4 fL (80-94); Mean Platelet Vol. 10.3 fl (6.2-12.0); Platelet Count 112 K/mm3 (150-450); RBC Distribution Width CV 14.2 % (11.6-14.6); RBC Distribution Width SD 46.4 fl (35.1-43.9); Red Blood Count 4.54 M/mm3 (4.6-6.2); White Blood Count 6.7 K/mm3 (4.4-11.0)
[2018-06-21 05:24] LABS: Partial Thromboplast Time 56.2 Seconds (24.1-36.2)
[2018-06-21 05:39] LABS: Anion Gap 9 (5-15); BUN 12 mg/dL (7-18); BUN/Creat Ratio 11.8 RATIO (10-20); Calcium,Total 8.6 mg/dL (8.5-10.1); Chloride 106 mmol/L (98-107); Creatinine, Serum 1.02 mg/dL (0.70-1.30); EST Glomerular Filtration Rate 83 mL/min (>60); Est Glom Filt Rate - Afr Amer 100 mL/min (>60); Estimated Creatinine Clearance 102.97 ml/min; Glucose 99 mg/dL (74-106); Potassium 4.1 mmol/L (3.5-5.1); Sodium Level 140 mmol/L (136-145)
[2018-06-21 05:43] LABS: Scan Indicated on CBC? Y/N NO
--- NOTE | 2018-06-21 07:53 | PCM.PROGNOTE ---
Patient Problems: Active and Suspected Problems Pulmonary embolism (Acute) Left leg DVT (Acute) Cavitary lesion of lung (Acute) Elevated BP without diagnosis of hypertension (Acute) Subjective: Chief complaint: Follow-up after admission for acute DVT, acute PE and left upper lobe cavitary lesion. Patient seen and examined. No acute events overnight. He complains of left leg pain. Denied chest pain or shortness of breath. Denied abdominal pain, nausea or vomiting. His vital signs are stable. - Physical Exam General: Alert, Oriented x3, Cooperative, No apparent distress HEENT: Atraumatic, PERRLA, EOMI, Normocephalic Oral: Moist Mucosa, No Gingival or Mucosal Lesions/ Ulcerations Neck: Supple, No JVD, Negative Carotid Bruits, Trachea Midline, Thyroid Normal Size and Texture Lungs: Clear to auscultation, No rhonchi, No wheeze, No rales, Diminished Cardiovascular: Regular rate, Regular Rhythm, Normal S1, Normal S2, PMI Normal Abdomen: Bowel Sounds Present, Soft, Non Tender, Non-Distended, No Hepato-splenomegaly Extremities: No clubbing, No cyanosis, - - No edema on the right leg. Left leg is swollen, calf tenderness. Skin: No rashes, No breakdown Lymphatic: No Cervical, Supraclavicular, or Inguinal Adenopathy Neurological: Cranial nerves II-XII grossly intact, Motor Exam 5/5 strength throughout Psych/Mental Status: Normal Affect, Appropriate, Alert and oriented to time, place, person, mood and affect Vital Signs Temp Pulse Resp BP Pulse Ox 98.3 F 72 20 H 144/81 H 95 06/21/18 06:48 06/21/18 06:48 06/21/18 06:48 06/21/18 06:48 06/21/18 06:48 Oxygen Delivery Method Room Air Weight: 218 lb 4.122 oz Body Mass Index (BMI) 28.0 Intake and Output for Last 24 Hours 06/19/18 06/20/18 06/21/18 23:59 23:59 23:59 Intake Total 300 / 300 575 / 575 Output Total 625 / 625 700 / 700 Balance -325 / -325 -125 / -125 Microbiology Past 72 Hours 06/20/18 16:08 Gram Stain - Preliminary Sputum, Expectorated/Coughed 06/20/18 07:00 Respiratory Panel (PCR) - Final Mucosa - Nose 06/20/18 08:00 Legionella Antigen - Final Urine, Random 06/20/18 08:00 Streptococcus pneumoniae Antigen (M - Final Urine, Clean Catch Laboratory Tests Past 24 Hrs 06/20/18 06/20/18 06/20/18 07:06 07:06 07:06 WBC RBC Hgb Hct MCV MCH MCHC RDW RDW Differential Plt Count MPV APTT 36.1 Sodium Potassium Chloride Carbon Dioxide Anion Gap BUN Creatinine Estim Creat Clear Calc Est GFR (MDRD) Af Amer Est GFR (MDRD) Non-Af BUN/Creatinine Ratio Glucose Calcium Magnesium 1.9 B-Natriuretic Peptide 5.5 06/20/18 06/20/18 06/21/18 14:38 20:35 04:34 WBC 6.7 RBC 4.54 L Hgb 13.1 Hct 40.6 MCV 89.4 MCH 28.9 MCHC 32.3 RDW 14.2 RDW Differential 46.4 H Plt Count 112 L MPV 10.3 APTT 58.1 H 46.1 H Sodium Potassium Chloride Carbon Dioxide Anion Gap BUN Creatinine Estim Creat Clear Calc Est GFR (MDRD) Af Amer Est GFR (MDRD) Non-Af BUN/Creatinine Ratio Glucose Calcium Magnesium B-Natriuretic Peptide 06/21/18 06/21/18 04:34 04:34 WBC RBC Hgb Hct MCV MCH MCHC RDW RDW Differential Plt Count MPV APTT 56.2 H Sodium 140 Potassium 4.1 Chloride 106 Carbon Dioxide 25.0 Anion Gap 9 BUN 12 Creatinine 1.02 Estim Creat Clear Calc 102.97 Est GFR (MDRD) Af Amer 100 Est GFR (MDRD) Non-Af 83 BUN/Creatinine Ratio 11.8 Glucose 99 Calcium 8.6 Magnesium B-Natriuretic Peptide Medical Necessity - Tobacco Use Smoking Status: Current every day smoker Tobacco Use: Cigarettes Assessment/Plan All Active Problems Pulmonary embolism (Acute) Left leg DVT (Acute) Cavitary lesion of lung (Acute) Elevated BP without diagnosis of hypertension (Acute) This is a 48 years old male patient presented to the ED because of worsening left neck pain secondary to recently diagnosed extensive left lower extremity DVT as well as dizziness and lightheadedness and he was found to have small pulmonary emboli of the branches left lower lobe pulmonary artery as well as incidental left upper lobe cavitary lesion. #1 small multiple pulmonary emboli involving branches of the left lower lobe pulmonary artery: Secondary to recent acute DVT. He is on IV heparin drip. His vital signs are stable, her respiratory status is stable, maintaining pulse ox on room air. Plan to continue same treatment for now. #2 acute DVT of the posterior tibial vein to mid femoral vein and lesser saphenous vein: This was diagnosed on June 18, 2018 and patient was discharged home on Xarelto. Patient presented to ER next day because of dizziness, lightheadedness and intractable left leg pain. At this time, he is on IV heparin drip as above. He is on IV morphine and OxyIR as needed for pain, pain is manageable. Plan to continue same treatment. #3 left upper lobe cavitary lesion: Incidental finding. It is not typical for malignant lesion. Patient is a smoker for a long time. Plan for CT-guided lung biopsy which will be done tomorrow morning. That is why patient is on IV heparin at this time. #4 elevated blood pressure: Secondary to pain, blood pressure improved. #5 tobacco abuse: Continue NicoDerm patch. #6 DVT prophylaxis: On IV heparin drip. This note was generated with [employer] dictation software. It may contain incorrect words, spelling, and punctuation that were not noted in checking the note before signing. Code Visit Inpatient E&M: 00667 Subs Hosp L2
[2018-06-21] MEDS: 0.9% Normal Saline 1,000 ML 100 ML IV (10:15)
--- NOTE | 2018-06-21 10:31 | PCM.PROGNOTE ---
Patient Problems: Active and Suspected Problems Pulmonary embolism (Acute) Left leg DVT (Acute) Cavitary lesion of lung (Acute) Elevated BP without diagnosis of hypertension (Acute) Subjective: Patient did well overnight. Patient still having significant left lower extremity pain, especially with dangling. Patient denies any hemoptysis or chest pain. Patient denies any bleeding complications. Patient's CT-guided biopsy has been postponed secondary to technical difficulties. Patient is currently being ruled out for tuberculosis, but reports very poor production, even after aerosol therapy. - Physical Exam General: Alert, Oriented x3, Cooperative, No apparent distress, Well developed, Well nourished, - - Speaking in full sentences. HEENT: Atraumatic, PERRLA, EOMI, Normocephalic, - - Scleral icterus or injection noted. Oral: Moist Mucosa, No Gingival or Mucosal Lesions/ Ulcerations Neck: Supple, No JVD, No Nodes, Trachea Midline Lungs: Clear to auscultation, Normal air movement, No rhonchi, No wheeze, No rales Cardiovascular: Regular rate, Regular Rhythm, Normal S1, Normal S2, No murmurs, No rub noted, No Gallop Abdomen: Bowel Sounds Present, Soft, Non Tender, Non-Distended Extremities: No clubbing, No cyanosis, No edema, Capillary Refill Less than 3 Seconds, - - Venous distention noted of left lower extremity Skin: No rashes, No breakdown Musculoskeletal: No Tenderness to Palpation of Joints or Extremities Lymphatic: No Cervical, Supraclavicular, or Inguinal Adenopathy Neurological: Cranial nerves II-XII grossly intact, Neuro grossly intact, Motor Exam 5/5 strength throughout Psych/Mental Status: Alert and oriented to time, place, person, mood and affect Vital Signs Temp Pulse Resp BP Pulse Ox 36.8 C 83 20 H 144/81 H 95 06/21/18 06:48 06/21/18 07:34 06/21/18 06:48 06/21/18 06:48 06/21/18 06:48 Oxygen Delivery Method Room Air Weight: 99 kg Body Mass Index (BMI) 28.0 Intake and Output for Last 24 Hours 06/19/18 06/20/18 06/21/18 23:59 23:59 23:59 Intake Total 300 / 300 575 / 575 Output Total 625 / 625 700 / 700 Balance -325 / -325 -125 / -125 Microbiology Past 72 Hours 06/20/18 16:08 Gram Stain - Preliminary Sputum, Expectorated/Coughed 06/20/18 07:00 Respiratory Panel (PCR) - Final Mucosa - Nose 06/20/18 08:00 Legionella Antigen - Final Urine, Random 06/20/18 08:00 Streptococcus pneumoniae Antigen (M - Final Urine, Clean Catch Laboratory Tests Past 24 Hrs 06/20/18 06/20/18 06/21/18 14:38 20:35 04:34 WBC 6.7 RBC 4.54 L Hgb 13.1 Hct 40.6 MCV 89.4 MCH 28.9 MCHC 32.3 RDW 14.2 RDW Differential 46.4 H Plt Count 112 L MPV 10.3 APTT 58.1 H 46.1 H Sodium Potassium Chloride Carbon Dioxide Anion Gap BUN Creatinine Estim Creat Clear Calc Est GFR (MDRD) Af Amer Est GFR (MDRD) Non-Af BUN/Creatinine Ratio Glucose Calcium 06/21/18 06/21/18 04:34 04:34 WBC RBC Hgb Hct MCV MCH MCHC RDW RDW Differential Plt Count MPV APTT 56.2 H Sodium 140 Potassium 4.1 Chloride 106 Carbon Dioxide 25.0 Anion Gap 9 BUN 12 Creatinine 1.02 Estim Creat Clear Calc 102.97 Est GFR (MDRD) Af Amer 100 Est GFR (MDRD) Non-Af 83 BUN/Creatinine Ratio 11.8 Glucose 99 Calcium 8.6 Medical Necessity - Tobacco Use Smoking Status: Current every day smoker Tobacco Use: Cigarettes Assessment/Plan All Active Problems Pulmonary embolism (Acute) Left leg DVT (Acute) Cavitary lesion of lung (Acute) Elevated BP without diagnosis of hypertension (Acute) RECOMMENDATIONS: 1. Continue with heparin drip 2. Arrange for CT-guided biopsy, tomorrow at 10 AM tentatively 3. Walking oximetry prior to discharge 4. Await echocardiogram 5. Rule out TB with AFB smears 6. Outpatient complete PFT IMPRESSIONS: 1. Acute DVT/PE Patient was significant left lower extremity DVT and findings of acute pulmonary embolism. Patient was placed on Xarelto previously, but should be on heparin drip to facilitate interventions while hospitalized. Patient is currently doing well on room air. An echocardiogram has been ordered for evaluation of cor pulmonale. Patient may be better served by using Eliquis therapy given shorter half-life and physical job. Patient will need a walking oximetry prior to discharge, but anticipate supplemental oxygen will not be required. Patient will require 3-6 months of anticoagulation at a minimum. Some concern for cavitary mass and embolism but this may be a paraneoplastic syndrome. 2. Left upper lobe cavitary mass Patient does have a cavitary left upper lobe mass. Given patient's concomitant PE, concern for malignancy is significant. Other possible etiologies would include an anaerobic infection such as Nocardia or actinomyces. Given size, biopsy would be recommended as patient does not report significant fever, leukocytosis or change in productive cough. 3. Probable COPD with active tobacco use Patient has an extensive history of smoking and emphysematous changes noted on CT scan of the chest. Patient will need an outpatient pulmonary function test for quantification and clarification of lung function. Patient is relatively asymptomatic at this time. Would not recommend steroid therapy. Bronchodilators would not be unreasonable. Code Visit Inpatient E&M: 97799 Subs Hosp L2
[2018-06-21 11:03] LABS: Partial Thromboplast Time 47.9 Seconds (24.1-36.2)
[2018-06-21] MEDS: Heparin Injection (Vial) 5,000 UNIT/ML VIAL IV ×2 (11:20→18:45)
[2018-06-21 17:55] LABS: Partial Thromboplast Time 48.5 Seconds (24.1-36.2)
[2018-06-22 03:02] VITALS: PULSE 69
[2018-06-22 03:53] VITALS: BP 148/87; PULSE 80; RESP 17; TEMP 36.7; O2SAT 95
[2018-06-22] MEDS: 0.9% NaCl Peripheral Flush Adult/Peds IV (04:02)
[2018-06-22 07:19] VITALS: PULSE 76
[2018-06-22 07:27] LABS: Partial Thromboplast Time 31.5 Seconds (24.1-36.2)
--- NOTE | 2018-06-22 08:39 | PN_ITS ---
Patient Problems: Active and Suspected Problems Pulmonary embolism (Acute) Left leg DVT (Acute) Cavitary lesion of lung (Acute) Elevated BP without diagnosis of hypertension (Acute) Subjective: Patient did well overnight. Patient reports subjective improvement in left lower extremity swelling and discomfort. No chest pain or shortness of breath is been reported. Patient continues to report minimal production with cough. No bleeding complications reported by nursing or patient. Objective: Heparin held overnight secondary to CT-guided biopsy planned - Physical Exam General: Alert, Oriented x3, Cooperative, No apparent distress, Well developed, Well nourished, - - Speaking in full sentences. HEENT: Atraumatic, PERRLA, EOMI, Normocephalic, - - No scleral icterus or injection noted. Oral: Moist Mucosa, No Gingival or Mucosal Lesions/ Ulcerations Neck: Supple, No JVD, No Nodes, Trachea Midline Lungs: Clear to auscultation, Normal air movement, No rhonchi, No wheeze, No rales, - - Symmetric expansion. No dullness to percussion. Cardiovascular: Regular rate, Regular Rhythm, Normal S1, Normal S2, No murmurs, No rub noted, No Gallop Abdomen: Bowel Sounds Present, Soft, Non Tender, Non-Distended Extremities: No clubbing, No cyanosis, No edema, Capillary Refill Less than 3 Se conds Skin: No rashes, No breakdown Musculoskeletal: No Tenderness to Palpation of Joints or Extremities Lymphatic: No Cervical, Supraclavicular, or Inguinal Adenopathy Neurological: Cranial nerves II-XII grossly intact, Neuro grossly intact, Motor Exam 5/5 strength throughout Psych/Mental Status: Alert and oriented to time, place, person, mood and affect Vital Signs Temp Pulse Resp BP Pulse Ox 36.7 C 76 17 148/87 H 95 06/22/18 03:53 06/22/18 07:19 06/22/18 03:53 06/22/18 03:53 06/22/18 03:53 Oxygen Delivery Method Room Air Weight: 99 kg Body Mass Index (BMI) 28.0 Intake and Output for Last 24 Hours 06/20/18 06/21/18 06/22/18 23:59 23:59 23:59 Intake Total 300 / 300 2532.8 / 2532.8 67.6 / 67.6 Output Total 625 / 625 4150 / 4150 400 / 400 Balance -325 / -325 -1617.2 / -1617.2 -332.4 / -332.4 Microbiology Past 72 Hours 06/21/18 07:18 Gram Stain - Preliminary Sputum, Induced/Lukens 06/20/18 23:00 Gram Stain - Final Sputum, Expectorated/Coughed 06/20/18 16:08 Gram Stain - Final Sputum, Expectorated/Coughed Respiratory Culture - Preliminary Appears to be normal respiratory elham. Further studies to follow. 06/20/18 07:00 Respiratory Panel (PCR) - Final Mucosa - Nose 06/20/18 08:00 Legionella Antigen - Final Urine, Random 06/20/18 08:00 Streptococcus pneumoniae Antigen (M - Final Urine, Clean Catch Laboratory Tests Past 24 Hrs 06/21/18 06/21/18 06/22/18 10:30 17:20 00:58 PT INR APTT 47.9 H 48.5 H 75.0 H 06/22/18 06/22/18 06/22/18 06:25 06:25 07:57 PT 13.0 Pending INR 1.0 Pending APTT 31.5 Cancelled Pending Medical Necessity - Tobacco Use Smoking Status: Current every day smoker Tobacco Use: Cigarettes Assessment/Plan All Active Problems Pulmonary embolism (Acute) Left leg DVT (Acute) Cavitary lesion of lung (Acute) Elevated BP without diagnosis of hypertension (Acute) RECOMMENDATIONS: 1. Likely okay to reinitiate anticoagulation with Eliquis tomorrow 2. Await CT-guided biopsy, tomorrow at 10 AM tentatively 3. Walking oximetry prior to discharge 4. CT-guided biopsy should also be sent for microbiology 5. Rule out TB with AFB smears 6. Outpatient complete PFT 7. Possible discharge later today if no complications from biopsy 8. Follow-up late this week versus early next week for test results of biopsy IMPRESSIONS: 1. Acute DVT/PE Patient was significant left lower extremity DVT and findings of acute pulmonary embolism. Patient was placed on Xarelto previously, but should be on heparin drip to facilitate interventions while hospitalized. Patient is currently doing well on room air. An echocardiogram has been ordered for evaluation of cor pulmonale. Patient may be better served by using Eliquis therapy given shorter half-life and physical job. Patient will need a walking oximetry prior to discharge, but anticipate supplemental oxygen will not be required. Patient will require 3-6 months of anticoagulation at a minimum. Some concern for cavitary mass and embolism but this may be a paraneoplastic syndrome. Patient should be seen in our office early next week to receive test results 2. Left upper lobe cavitary mass Patient does have a cavitary left upper lobe mass. Given patient's concomitant PE, concern for malignancy is significant. Other possible etiologies would include an anaerobic infection such as Nocardia or actinomyces. Given size, biopsy would be recommended as patient does not report significant fever, leukocytosis or change in productive cough. 3. Probable COPD with active tobacco use Patient has an extensive history of smoking and emphysematous changes noted on CT scan of the chest. Patient will need an outpatient pulmonary function test for quantification and clarification of lung function. Patient is relatively asymptomatic at this time. Would not recommend steroid therapy. Bronchodilators would not be unreasonable. Code Visit Inpatient E&M: 68260 Subs Hosp L2
[2018-06-22 08:45] VITALS: O2SAT 95
[2018-06-22 08:59] LABS: Partial Thromboplast Time 30.3 Seconds (24.1-36.2); Prothrombin Time (Protime)PT. 13.5 SECONDS (11.7-14.9)
[2018-06-22 09:53] VITALS: BP 125/71; PULSE 78; RESP 18; TEMP 36.7; O2SAT 97
--- NOTE | 2018-06-22 10:25 | CASEMGMT ---
SW received a message from patient's asking if they could do advance directives before patient's procedure. Patient is in TB precautions. SW is not fitted for the special mask and papers cannot be taken in and out of the room. SW called patient's and let her know that due to the precautions SW cannot complete the documents. SW explained if she is his POA automatically goes to her. She asked about the living will. SW told her as long as she knows his wishes she can speak for him if he is unable to do so. SW told her if those precautions are lifted we can complete the documents. Maria C ROBLEDO MSW
[2018-06-22 11:41] VITALS: PULSE 81
[2018-06-22] MEDS: Enoxaparin 100 MG/ML Syringe SC (12:15)
--- NOTE | 2018-06-22 13:17 | DCINST_ITS ---
- Discharge Diagnoses Current Active Problems: Current Active and Chronic Problems Pulmonary embolism (Acute) Left leg DVT (Acute) Cavitary lesion of lung (Acute) Tobacco use (Chronic) Elevated BP without diagnosis of hypertension (Acute) You will use the following diet at home:: Regular Your food should be the consistency of: Regular Discharge Activity: Return to Normal Activity Weight Bearing Status: Weight bearing as tolerated Call your doctor if you observe: Fever of 101 or Higher, Shortness of breath, Dizziness, Fainting spells, Chest pain, Increased palpitations (irregular heartbeat), Uncontrolled pain Instructions: Discharge Instructions for Pulmonary Embolism, Discharge Instructions for Deep Vein Thrombosis Additional Instructions: CT-guided lung biopsy scheduled for June 30, 2018 at 10 AM. Please stop taking Xarelto 48 hours before the procedure. Allergies/Adverse Reactions: Allergies No Known Allergies Allergy (Verified 06/20/18 02:22) Medications to take at Discharge Rivaroxaban [Xarelto] 15 mg PO BID #42 tab 06/18/18 Oxycodone [Oxyir] 5 mg PO Q8H PRN PRN 4 Days #14 tab 06/22/18 Rivaroxaban [Xarelto] 20 mg PO DAILY #90 tab 06/22/18 The following prescriptions were given: Oxycodone [Oxyir] 5 mg PO Q8H PRN PRN 4 Days #14 tab PRN Reason: Moderate Pain (pain scale 4-5) Rivaroxaban [Xarelto] 20 mg PO DAILY #90 tab Primary Care Physician: Care Physician,No Primary [Primary Care Provider] - Please follow up with your Primary Care Physician in: 1 week. Test Results: Test results from this visit will be discussed in further detail at your follow- up appointment, if applicable. Please Follow Up With: CT guided biopsy Please Follow Up With: Crescencio Young MD When: as scheduled.
--- NOTE | 2018-06-22 13:28 | DCINST_ITS ---
- Discharge Diagnoses Current Active Problems: Current Active and Chronic Problems Pulmonary embolism (Acute) Left leg DVT (Acute) Cavitary lesion of lung (Acute) Tobacco use (Chronic) Elevated BP without diagnosis of hypertension (Acute) You will use the following diet at home:: Regular Your food should be the consistency of: Regular Discharge Activity: Return to Normal Activity Weight Bearing Status: Weight bearing as tolerated Call your doctor if you observe: Fever of 101 or Higher, Shortness of breath, Dizziness, Fainting spells, Chest pain, Increased palpitations (irregular heartbeat), Uncontrolled pain Instructions: Discharge Instructions for Deep Vein Thrombosis, Discharge Instructions for Pulmonary Embolism Additional Instructions: CT-guided lung biopsy scheduled on June 30, 2018 at 10 AM. Please stop taking Eliquis 48 hours before the procedure. Allergies/Adverse Reactions: Allergies No Known Allergies Allergy (Verified 06/20/18 02:22) Medications to take at Discharge Apixaban [Eliquis] 5 mg PO BID #90 tab 06/22/18 Oxycodone [Oxyir] 5 mg PO Q8H PRN PRN 4 Days #14 tab 06/22/18 The following prescriptions were given: Oxycodone [Oxyir] 5 mg PO Q8H PRN PRN 4 Days #14 tab PRN Reason: Moderate Pain (pain scale 4-5) Apixaban [Eliquis] 5 mg PO BID #90 tab Primary Care Physician: Care Physician,No Primary [Primary Care Provider] - Please follow up with your Primary Care Physician in: 1 week. Test Results: Test results from this visit will be discussed in further detail at your follow- up appointment, if applicable. Please Follow Up With: CT guided biopsy Please Follow Up With: Crescencio Young MD When: as scheduled.
--- NOTE | 2018-06-22 14:29 | CASEMGMT ---
KARLEE DOW NOTE: Call placed to [facility] pharmacy for musa check on Eliquis using $10 co-pay card for 1st 30 days. Per pharmacist @ [facility], [id number] cost will be $10-30 for the 1st 30 days and $30 days/month thereafter. 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 Pt voiced understanding. Pt given KARLEE DOW's business card with contact information for him to call if there would be any issues with cost or other concerns. Pt voiced understanding. Megan HERNANDEZ RN, CM
--- NOTE | 2018-06-22 15:00 | NURSING ---
walking pulse ox 95% on RA.
--- NOTE | 2018-06-22 15:46 | CASEMGMT ---
Addendum entered by Wilian Reilly 06/22/18 15:59: Assess completed @ [id number]. Original Note: KARLEE DOW INITIAL ASSESSMENT D/C PLAN: Home with and discharge plans in place. Face to Face with patient for initial transition planning/care coordination assessment. KARLEE DOW introduced self and role at [facility]. Pt resting in bed with family visiting in the room. Pt states okay to assessment with family present. Care providers, pharmacy, and demographics verified. PCP: No PCP. Given list of local PCP's. Pt voiced appreciation. Preferred Pharmacy: [facility] Insurance: MMO Prescription Benefit: Yes Living Will/HPOA: Does not have either. Given AD info packet. Also given [employer] contact information and pt and were made aware they can contact as an out-pt to make an appt for AD to be completed if they would choose to do so. LNOK: Living Arrangements: Lives with and 2 kids in a one-story home with one step to enter. Transportation: Drives DME: Denies using any DME and denies needs. Does have rails/grab bars and hand-held shower in the home. Has walker and shower chair available that his used previously if he would need. HHC/SNF: Has never used HHC or been to a SNF. No needs identified. Pt wishes to return home. CM to follow for any further discharge planning needs that may arise. Megan HERNANDEZ RN, CM
--- NOTE | 2018-06-22 16:42 | DS.PCM_ITS ---
Discharge Date and Diagnosis Date of Admission: 06/20/18 Date of Discharge: 06/22/18 - Primary Discharge Diagnosis #1 acute small multiple pulmonary emboli involving the branches of the left lower lobe pulmonary artery. #2 acute DVT of the posterior tibial vein/mid femoral vein and lesser saphenous vein. #3 left upper lobe cavitary lesion. - Secondary Discharge Diagnosis Chronic Problems Tobacco use (Chronic) Hospital Course and Treatment Imaging Results: Clinical Impression(s) from Imaging Studies Chest CTA 06/20/18 03:43 IMPRESSION: Small pulmonary emboli involving branches of the left lower lobe pulmonary artery. Left upper lobe cavitary lesion. Considerations include cavitating pneumonia, tuberculosis, rare fungal infections or less likely malignancy. Mediastinal lymphadenopathy. N.B. : The above information has been verbally conveyed by Timothy Jones MD to Dr. Brett MD, on 06/20/2018 05:30:28 (ET). Electronically Signed: Timothy Jones MD at 5:31 EST , Service support , Dr. Young, pulmonology. Operations: None Procedures: 2-D Echocardiogram, EKG Summary of Care Provided: Patient seen and examined on the day of this child and appendectomy to be stable to be discharged home. CT-guided lung biopsy canceled because we need to rule out active tuberculosis before the procedure. His vital signs are stable This is a 48 years old male patient presented to the ED because of worsening left neck pain secondary to recently diagnosed extensive left lower extremity DVT as well as dizziness and lightheadedness and he was found to have small pulmonary emboli of the branches left lower lobe pulmonary artery as well as inc idental left upper lobe cavitary lesion. #1 small multiple pulmonary emboli involving branches of the left lower lobe pulmonary artery: Treated with IV heparin drip and later, started on Eliquis. This is considered provoked secondary to recent acute DVT. There was no indication to do hypercoagulability workup. His vital signs were stable and has a supportive status was stable as well. Patient discharged home in stable medical condition, discharged on Eliquis loading dose 10 mg p.o. twice daily for 7 days and then instructed to take 5 mg p.o. twice daily. #2 acute DVT of the posterior tibial vein to mid femoral vein and lesser saphenous vein: This was diagnosed on June 18, 2018 and patient was discharged home on Xarelto. During this admission, he was treated with IV heparin drip and later, he was converted to Eliquis twice daily and was discharged on Eliquis as above. #3 left upper lobe cavitary lesion: Incidental finding. Pulmonology consulted and recommended CT scan guided lung biopsy. The procedure was not done because radiology wanted to rule out active tuberculosis before the procedure. Patient discharged home, scheduled to have CT scan guided lung biopsy on June 30, 2018 at 10 AM as outpatient, instructed to stop taking Eliquis 48 hours before the procedure. Plan to follow-up with pulmonology as outpatient. Patient discharged home in a stable medical condition, discharged on Eliquis for acute PE and DVT, discharged on OxyIR as needed for pain, plan to follow-up with PCP in 1 week, CT scan guided lung biopsy on June 30, 2018 as above, follow- up with pulmonology as outpatient. This note was generated with Ziebel dictation software. It may contain incorrect words, spelling, and punctuation that were not noted in checking the note before signing. - Physical Exam General: Alert, Oriented x3, Cooperative, No apparent distress HEENT: Atraumatic, PERRLA, EOMI, Normocephalic Oral: Moist Mucosa, No Gingival or Mucosal Lesions/ Ulcerations Neck: Supple, No JVD, Negative Carotid Bruits, Trachea Midline, Thyroid Normal Size and Texture Lungs: Clear to auscultation, No rhonchi, No wheeze, No rales, Diminished Cardiovascular: Regular rate, Regular Rhythm, Normal S1, Normal S2 Abdomen: Bowel Sounds Present, Soft, Non Tender, Non-Distended, No Hepato- splenomegaly Extremities: No clubbing, No cyanosis, No edema, - - Left leg is swollen, mildly tender. Skin: No rashes, No breakdown Lymphatic: No Cervical, Supraclavicular, or Inguinal Adenopathy Neurological: Cranial nerves II-XII grossly intact, Neuro grossly intact Psych/Mental Status: Normal Affect, Appropriate Vital Signs Temp Pulse Resp BP Pulse Ox 98.1 F 81 18 125/71 H 97 06/22/18 09:53 06/22/18 11:41 06/22/18 09:53 06/22/18 09:53 06/22/18 09:53 Oxygen Delivery Method Room Air Weight: 218 lb 4.122 oz Body Mass Index (BMI) 28.0 Intake and Output for Last 24 Hours 06/20/18 06/21/18 06/22/18 23:59 23:59 23:59 Intake Total 300 / 300 2532.8 / 2532.8 67.6 / 67.6 Output Total 625 / 625 4150 / 4150 700 / 700 Balance -325 / -325 -1617.2 / -1617.2 -632.4 / -632.4 Microbiology Past 72 Hours 06/21/18 07:18 Gram Stain - Final Sputum, Induced/Lukens Respiratory Culture - Preliminary Appears to be normal respiratory elham. Further studies to follow. 06/20/18 23:00 Gram Stain - Final Sputum, Expectorated/Coughed Respiratory Culture - Preliminary Appears to be normal respiratory elham. Further studies to follow. 06/20/18 16:08 Gram Stain - Final Sputum, Expectorated/Coughed Respiratory Culture - Preliminary Appears to be normal respiratory elham. Further studies to follow. 06/20/18 07:00 Respiratory Panel (PCR) - Final Mucosa - Nose 06/20/18 08:00 Legionella Antigen - Final Urine, Random 06/20/18 08:00 Streptococcus pneumoniae Antigen (M - Final Urine, Clean Catch Laboratory Tests Past 24 Hrs 06/21/18 06/22/18 06/22/18 17:20 00:58 06:25 PT 13.0 INR 1.0 APTT 48.5 H 75.0 H 31.5 06/22/18 06/22/18 06:25 07:57 PT 13.5 INR 1.0 APTT Cancelled 30.3 Discharge Activity: Return to Normal Activity Weight Bearing Status: Weight bearing as tolerated Call your doctor if you observe: Fever of 101 or Higher, Shortness of breath, Dizziness, Fainting spells, Chest pain, Increased palpitations (irregular heartbeat), Uncontrolled pain Home Medications: Medications to take at Discharge Apixaban [Eliquis] 5 mg PO BID #90 tab 06/22/18 Oxycodone [Oxyir] 5 mg PO Q8H PRN PRN 4 Days #14 tab 06/22/18 Following Prescrptions Were Given to Patient: Oxycodone [Oxyir] 5 mg PO Q8H PRN PRN 4 Days #14 tab PRN Reason: Moderate Pain (pain scale 4-5) Apixaban [Eliquis] 5 mg PO BID #90 tab Primary Care Physician: Care Physician,No Primary [Primary Care Provider] - Please follow up with your Primary Care Physician in: 1 week. Please Follow Up With: CT guided biopsy Please Follow Up With: Crescencio Young MD When: as scheduled. Patient Instructions: Discharge Instructions for Deep Vein Thrombosis, Discharge Instructions for Pulmonary Embolism Disposition: Home Minutes spent on discharge:: 34 Patient Condition:: Stable Medical Necessity - Tobacco Use Smoking Status: Current every day smoker Tobacco Use: Cigarettes Meaningful Use Info Meaningful Use Diagnoses (Choose all that apply): None applicable Code Visit Inpatient E&M: 48868 Disch Hosp
== END 2018-06-22 15:10 | disposition home or self-care (01) | DRG 176 ==
LOC: ED 03:34 → PCU 06:19
PROVIDERS: Internal Medicine; Radiology Diagnostic Radiology; Admitting Provider Family Medicine; Emergency Provider Emergency Medicine; Visit Provider Hospitalist
DX: I26.99 Other pulmonary embolism without acute cor pulmonale (principal); I82.442 Acute embolism and thrombosis of left tibial vein; I80.9 Phlebitis and thrombophlebitis of unspecified site; J98.4 Other disorders of lung; F17.210 Nicotine dependence, cigarettes, uncomplicated; R03.0 Elevated blood-pressure reading, without diagnosis of hypertension
CPT/HCPCS: 36415; 71275; 80048; 83735; 83880; 84484; 85025; 85027; 85610; 85730; 87015; 87070; 87116; 87205; 87206; 87449; 87633; 93005; 93306; 94640; 99284; 99406; J7030; Q9967; A4216

== ENCOUNTER → 2018-07-12 07:29 | Outpatient (CLI) | payer OTHER, SELFPAY ==
[2018-06-20 07:35] VITALS: BMI 28.0
--- NOTE | 2018-07-12 08:00 | PET_ITS ---
EXAMINATION: FDG PET CT INDICATIONS: A 48-year-old male with reported history of pulmonary nodularity. COMPARISON EXAMINATION: CT of the chest report dated 06/20/18. INDEX LESION SIZE SUV INTERPRETATION Left mid posterior lung zone, left upper lobe 15.3 mm (frame 220) 5.3 Fulfills quantitative criteria for viable neoplasm, histopathologic analysis recommended Bilateral upper abdomen-adrenal glands 2.8 Quantitative criteria for viable neoplasm are fulfilled, correlation with CT of the abdomen and pelvis and/or magnetic resonance imaging may be of benefit NON-INDEX LESION SIZE SUV INTERPRETATION Right-left mid-lower posterior lung zones diffuse 3.3 Low likelihood of viable neoplasm TECHNIQUE: Following the intravenous administration of 15 mCi of F-18 deoxyglucose via the left antecubital fossa, multiplanar image acquisitions of the neck, chest, abdomen and pelvis to level of mid thigh, obtained at one hour post radiopharmaceutical administration contemporaneously interpreted with the current CT of the neck, chest, abdomen and pelvis to level of mid thigh, dated 07/12/[address] of the chest report dated 06/20/18 reveal: SERUM GLUCOSE LEVEL: 107 mg/dl. HEIGHT: 74 inches. WEIGHT: 220 lbs. FINDINGS: 1. Focal increased glucose metabolism is defined in the left mid hemithorax pulmonary parenchyma, left upper lobe generating a calculated maximum standard uptake value of 5.3. The maximal axial diameter of the centrally-cavitated parenchymal density on review of CT of the chest dated 07/12/18 is 15.3 mm (transverse). 2. There is an increase in FDG concentration defined in the bilateral upper abdomen contiguous to left-right adrenal glands generating a calculated maximum standard uptake value of 2.8. 3. Diffuse relatively non-nodular linear increased glucose concentration is demonstrated in the bilateral mid-lower posterior lung zones generating a calculated maximum standard uptake value of 3.3. Uptake appears to corresponding to ground-glass density on review of CT of the chest dated 07/12/18. 4. Normal physiologic distribution of the radiopharmaceutical is apparent in the hepatic (1.8) and splenic parenchyma, both renal units, bladder and visualized intestinal tract. There is symmetric and preserved glucose metabolism noted in the visualized portion of the frontal, occipital, temporal and parietal lobes of the cerebral cortex, as well as cerebral hemispheres and basal ganglia. Diffuse intestinal tract activity is noted throughout all four quadrants of the abdominal-pelvic retroperitoneum, mesentery consistent with normal physiologic distribution of the radiopharmaceutical. Pertinent CT findings are as follows. CHEST: A ground-glass density defined in the left lower anterolateral lung field demonstrates no evidence of increased glucose metabolism. Paraseptal emphysematous change is noted in the bilateral upper lung zones. Bilateral axillary soft tissue densities with fatty hilus formation are non-glucose avid. ABDOMEN AND PELVIS: Atherosclerotic calcification is defined in the abdominal aorta without evidence of dilatation, aneurysm formation. Pelvic arterial calcification is observed. Bilateral fat-containing inguinal hernias are noted. Right-left inguinal soft tissue densities demonstrate no evidence of increased glucose metabolism. Dystrophic calcification is manifest within the prostate gland without evidence of quantitatively significant enhanced FDG uptake. SKELETAL: Degenerative changes defined in the cervical, thoracic and lumbar spine demonstrate no evidence for glucose hypermetabolism. PET/PET/CT Tumor Base -Thigh Init IMPRESSION: 1. Increased glucose metabolism defined in the left mid posterior lung field, left upper lobe fulfills quantitative criteria for viable neoplasm. Histopathologic analysis is recommended. 2. The increase in FDG concentration noted in the bilateral upper abdomen contiguous to the adrenal glands fulfills quantitative criteria for viable neoplasm with single-point technique. Correlation with CT of the abdomen and pelvis and/or magnetic resonance imaging utilizing adrenal gland protocol may be of benefit for further evaluation. 3. Enhanced radiopharmaceutical concentration noted in the bilateral mid-lower posterior lung zones, linear and relatively non-nodular in presentation likely represents an inflammatory process-pneumonitis. Electronic Signature Krishna Carr D.O. Electronically Signed: Krishna Carr DO at 22:04 EST Tel , Service support ,
--- OUTSIDE RECORDS SUMMARY | 2018-10-13 17:09 | XMS RPT_ITS ---
:1970 Author Organization [place] Support Name Relationship Address Phone VIDAL REIS Unavailable Unavailable + VIDAL REIS Unavailable Unavailable + CHATOVIDAL SALCEDO Unavailable [address] + [place] [address] [employer] Unavailable [address] + [place] [address] VIDAL REIS Unavailable [address] + [place] [address] [employer] Unavailable [address] + [place] [address] VIDAL REIS Unavailable [address] + [place] [address] [employer] Unavailable [address] + [place] [address] VIDAL REIS Unavailable [address] + [place] [address] [employer] Unavailable [address] + [place] [address] VIDAL REIS Unavailable [address] + [place] [address] [employer] Unavailable [address] + [place] [address] VIDAL REIS Unavailable [address] + [place] [address] [employer] Unavailable [address] + [place] [address] VIDAL REIS Unavailable [address] + [place] [address] [employer] Unavailable [address] + [place] [address] VIDAL REIS Unavailable [address] + [place] [address] [employer] Unavailable [address] + [place] [address] [employer] Unavailable [address] + [place] [address] [employer] Unavailable [address] + [place] [address] [employer] Unavailable [address] + [place] [address] [employer] Unavailable [address] + [place] [address] [employer]PH REIS[employer] Unavailable [address] + [place] [address] [employer] Unavailable [address] + [place] [address] Care Team Providers Name Role Phone Herminio West Attending Unavailable Primay Care Physicia, No Primary Care Unavailable Primay Care Physicia, No Primary Care Unavailable White, Mattie Admitting Unavailable Hector, Crescencio Consulting Unavailable Ashelfah, Ghasem Attending Unavailable White, Mattie Attending Unavailable Primay Care Physicia, No Primary Care Unavailable White, Mattie Admitting Unavailable Hector, Crescencio Attending Unavailable Primay Care Physicia, No Primary Care Unavailable Hector, Crescencio Consulting Unavailable Soto Avendano Consulting Unavailable White, Mattie Admitting Unavailable Ashelfah, Ghasem Attending Unavailable Primay Care Physicia, No Primary Care Unavailable Hector, Crescencio Consulting Unavailable Ashelfah, Ghasem Consulting Unavailable White, Mattie Admitting Unavailable Hector, Crescencio Attending Unavailable Primay Care Physicia, No Primary Care Unavailable Hector, Crescencio Consulting Unavailable Ashelfah, Ghasem Consulting Unavailable White, Mattie Admitting Unavailable Hector, Crescencio Attending Unavailable Primay Care Physicia, No Primary Care Unavailable Hector, Crescencio Consulting Unavailable Ashelfah, Ghasem Consulting Unavailable White, Mattie Admitting Unavailable Ashelfah, Ghasem Attending Unavailable Primay Care Physicia, No Primary Care Unavailable Hector, Crescencio Consulting Unavailable Ashelfah, Ghasem Consulting Unavailable Crescencio Young Attending Unavailable Crescencio Young Referring Unavailable Primay Care Physicia, No Primary Care Unavailable Jairo Urrutia Attending Unavailable Mattie Serrano Referring Unavailable NADEGE KHAN Attending Unavailable NADEGE KHAN Consulting Unavailable Nery Silveira Primary Care Unavailable NERY SILVEIRA Attending Unavailable HILARIO VELAZQUEZ Attending Unavailable [facility] DO, SS - [id number] ADONIS Attending Unavailable NERY SILVEIRA Primary Care Unavailable [facility] DO, ss - 4398 MISTI Attending Unavailable NERY SILVEIRA Primary Care Unavailable PROBLEMS PROBLEMS DATE TYPE CONDITION / CODE ATTENDING STATUS SOURCE 07/07/2018 Active Unknown / NERY SILVEIRA Active [facility] UNK(Unknown) A [facility] [place] Repository 07/06/2018 Unknown I82.402 - Acute Ashelfah, Active [place] embolism and ase Community thrombosis of Hospital unspecified deep Repository veins of left lower extremity / I82.402(ICD-10) 07/09/2018 Unknown I26.99 - Other Renan, Jairo Active [place] pulmonary Community embolism without Hospital acute cor Repository pulmonale / I26.99(ICD-10) 07/09/2018 Unknown J98.4 - Other Renan, [place] Active [place] disorders of lung Community / J98.4(ICD-10) Hospital Repository PROCEDURES PROCEDURES No Procedure Records FoundRESULTS RESULTS ED PHYSICIAN REPORT Observed: 08/01/2018 Status: C Source: [facility] 9:17 AM [facility] REPOSITORY Patient: MARIBELL REIS Sr Age: 48 years Sex: Male : 1970 Associated Diagnoses: Superficial phlebitis; DVT (deep venous thrombosis) Author: LEANA SAUCEDA PA-C Basic Information History source: Patient. Arrival mode: Private vehicle. History limitation: None. Time Seen: LEANA SAUCEDA PA-C / 07/26/2018 16:07 History of Present Illness Patient presents with complaints of increasing pain in his left lower extremity. Patient states that on 06/18/2018, at [facility], he was diagnosed with a left lower extremity DVT and bilateral P E. He was admitted for 4 days and has been on Eliquis since. Patient states all genetics testing has been negative and his leg has been feeling better, even though 2 weeks ago a new ultrasound showed that the DVT persisted. Patient woke yesterday with increased cramping in the leg, noted this morning that, not only did he have increased pain, but the swelling was worse still. Today, the patient's left calf is 1.8 cm larger in circumference than the right calf. Review of Systems Constitutional symptoms: No fever, no chills. Skin symptoms: No rash, no abrasions. Eye symptoms: No recent vision problems, Respiratory symptoms: No shortness of breath, no cough. Cardiovascular symptoms: No chest pain, no palpitations. Gastrointestinal symptoms: No abdominal pain, no nausea, no vomiting. Musculoskeletal symptoms: Negative except as documented in HPI. Hematologic/Lymphatic symptoms: Bleeding tendency negative, bruising tendency negative. Neurologic symptoms No headache, no dizziness. Health Status Allergies: Allergic Reactions (Selected) No Known Medication Allergies. Medications: Per nurse's notes. Immunizations: Up to date. Past Medical/ Family/ Social History Medical history: Reviewed as documented in chart. Surgical history: Reviewed as documented in chart. Family history: Entire family history is negative.. Social history: Alcohol use: Denies, Tobacco use: Regularly, Drug use: Denies. Problem list: Active Problems (2) DVT (deep venous thrombosis) Pulmonary embolism . Physical Examination Vital Signs Vital Signs 07/26/2018 15:12 EST Temperature Oral 36.8 degC NORMAL Peripheral Pulse Rate 98 bpm NORMAL Respiratory Rate 18 br/min NORMAL Systolic Blood Pressure 112 mmHg NORMAL Diastolic Blood Pressure 73 mmHg NORMAL SpO2 98 % NORMAL Oxygen Therapy Room air Height/Length Dosing 190.50 cm Weight Dosing 100 kg Body Mass Index Dosing 28 . General: Alert, no acute distress. Skin: Warm, dry, pink, intact. Head: Normocephalic, atraumatic. Neck: Trachea midline. Eye: Normal conjunctiva, vision grossly normal. Ears, nose, mouth and throat: Oral mucosa moist. Cardiovascular: Regular rate and rhythm, Normal peripheral perfusion. Respiratory: Lungs are clear to auscultation, respirations are non-labored. Back: Normal range of motion. Musculoskeletal: Lower extremity: Left, calf, tenderness, swelling, range of motion restricted by pain. Psychiatric: Cooperative, appropriate mood & affect. Neurological Alert, awake, and appropriate. Cranial nerves IV-XII are grossly intact. Normal speech.. Medical Decision Making Differential Diagnosis: Deep vein thrombosis, superficial thrombophlebitis. Results review: Lab results : Laboratory 07/26/2018 18:24 EST Estimated Creatinine Clearance 98.16 mL/min 07/26/2018 17:15 EST BUN 14 mg/dL NORMAL Na 141 mmol/L NORMAL K 3.9 mmol/L NORMAL Chloride 107 mmol/L NORMAL CO2, venous 30.8 mmol/L NORMAL Glucose 82 mg/dL NORMAL Creatinine 1.1 mg/dL NORMAL Total Protein 7.8 g/dL NORMAL Calcium 8.9 mg/dL NORMAL Bilirubin, Total 0.36 mg/dL NORMAL Alk Phos 95 unit/L NORMAL GOT 22 unit/L NORMAL GPT 46 unit/L NORMAL BUN/Creat Ratio 12.3 NA Calculated Osmolality 281 mOsm/kg NORMAL Globulin 4.1 g/dL NA A/G Ratio 0.9 NA CPK 78 unit/L NORMAL ALB 3.7 g/dL NORMAL TROPONIN <0.015 ng/mL NORMAL Glomerular Filtration Rate >60 mL/min/1.73m? NA GFR AA >60 NA Protime Patient 12.6 seconds NORMAL INR 1.1 NA APTT Patient 32.8 seconds NORMAL WBC 6.8 x10 RBC 4.85 x10 HGB 14.0 g/dL NORMAL HCT 42.8 % NORMAL MCV 88.2 fL NORMAL MCH 28.9 pg NORMAL MCHC 32.7 g/dL NORMAL RDW 15.4 HI Platelet 147 x1000 LOW MPV 8.4 fL NORMAL Nucleated RBC 0 /100WBC NA Lymph % 24.8 % NA Anderson % 11.1 % NA Neutrophil % 61.7 % NA Eosin % 2.1 % NA Basos % 0.3 % NA Lymph Count 1.70 x1000 NORMAL Anderson Count 0.76 x1000 NORMAL Neutrophil Count (ANC) 4.22 x1000 NORMAL Eos Count 0.14 x1000 NORMAL Baso Count 0.02 x1000 NORMAL . Doppler ultrasound Venous duplex completed Positive for DVT left popliteal vein, gastrocnemius veins, posterior tibial veins, and peroneal veins. Positive for SVT left small saphenous vein. Negative for DVT right lower extremity. REPORT TO FOLLOW. Dr. Delgado: Patient was seen and examined. He complains of left lower extremity swelling in the setting of a recent dvt with persistence of the dvt despite oral anticoagulation. Compartments are soft and distal pulses are intact. He declined pain medications because the discomfort was tolerable. He DENIES any chest pain, palpitations or shortness of breath. We consulted vascular surgery who recommended elevating the extremity and using compression stockings which he has been using per the recommendations of his prior vascular surgeon. He attributes the swelling to going to back and walking and standi ng a lot more which is a reasonable explaination in the setting of a dvt. He is compliant with his medications. We did reach out ot Maribell after discharge and he is doing well and his swelling is improv ed with no other concerns. We encouraged vascular surgeon follow up and he is instructed to follow up with Dr. Jovel for reevaluation. He was appreciative of the care provied in the ED. Return to ED in structions reviewed and provided. Patient and voice agreement and understanding with plan of care. Impression and Plan Diagnosis Superficial phlebitis ([id number] I80.9, Discharge, Emergency medicine, Medical) DVT (deep venous thrombosis) ([id number] I82.409, Discharge, Emergency medicine, Medical) Calls-Consults - ADONIS JOVEL DO, recommends Follow-up in the office at the end of the week. Plan Disposition: Discharged: to home. Patient was given the following educational materials: Phlebitis, FYI: Deep Vein Thrombosis (3060). Follow up with: NERY SILVEIRA DR NOT ON STAFF Within 3 to 5 days. Counseled: Discussed today's findings, in addition to providing specific details for the plan of care and counseling regarding the diagnosis and prognosis. Discussed the return indications and importan ce of follow-up. Questions were answered. Addendum Addended to include the referral conversation with Dr. Jovel. I personally evaluated and examined the patient in conjunction with the PA-C and agree with the assessment, treatment plan and disposition of the patient as recorded by the PA-C. Electronically Co-Signed by: LEANA SAUCEDA PA-C on 07/30/2018 14:53 Electronically Co-Signed by: MISTI DELGADO DO on 08/01/2018 09:17 COMPMETA Collected: 07/26/2018 Status: F Source: [facility] 6:24 PM [facility] REPOSITORY TYPE CODE TESTS RESULT OUT OF RANGE REFERENCE UNITS LAB 7678 10-20 mg/dL Normal BUN 14 LAB 8896472 8.5-10.5 mg/dL Normal Calcium 8.9 LAB 7501 3.4-5.0 g/dL Normal ALB 3.7 LAB 3113906 72-100 mg/dL Normal Glucose 82 Result Comment: Venipuncture should occur prior to sulfasalazine administration due to the potential for falsely depressed results. Venipuncture should occur prior to sulfapyridine administration due t o the potential falsely elevated results. Baseline assay values before administration of sulfasalazine and sulfapyridine therapy would not be affected. LAB [id number] 15-37 unit/L Normal GOT 22 Result Comment: Results may be increased due to hemolysis. Venipuncture should occur prior to sulfasalazine and/or sulfapyridine administration due to the potential for falsely depressed results. Baseline assay values before administration of sulfasalazine and sulfapyridine therapy would not be affected. LAB 1704417 100-109 mmol/L Chloride Normal 107 LAB 3969772 135-145 mmol/L Na Normal 141 LAB 1873456 0.20-1.00 mg/dL Normal Bilirubin, Total 0.36 LAB 6712854 45-117 unit/L Alk Phos Normal 95 LAB 4452917 0.7-1.3 mg/dL Normal Creatinine 1.1 LAB 1274465 16-61 unit/L GPT Normal 46 Result Comment: Venipuncture should occur prior to sulfasalazine and/or sulfapyridine administration due to the potential for falsely depressed results. Baseline assay values before administration of sulfasalazine and sulfapyridine therapy would not be affected. LAB 6526325 21.0-32.0 mmol/L Normal CO2, venous 30.8 LAB 0424527 6.0-8.5 g/dL Normal Total Protein 7.8 LAB 0300478 3.5-5.1 mmol/L Normal K 3.9 Result Comment: Results may be increased due to hemolysis. LAB 1012609 g/dL Normal Globulin 4.1 LAB 0535188 Normal BUN/Creat Ratio 12.3 LAB 273892115(INC ) Normal GFR AA >60 Result Comment: GFR Calc Medical judgement is necessary to interpret GFR. The calculated GFR may not accurately reflect renal status in patients >70 years, women, acutely ill hospitalized patients and patients with acute renal failure or known renal disease. The MDRD GFR formula is valid only for adults greater than 18 years of age. Note: Creatinine clearance (not GFR) should be used for drug dosing. LAB 0150107(LOINC) Normal A/G Ratio 0.9 LAB 1023528 275-295 mOsm/kg Normal Calculated Osmolality 281 LAB 86898832 mL/min/ Normal 1.73m? Glomerular Filtration Rate >60 Result Comment: Non GFR Calc Medical judgement is necessary to interpret GFR. The calculated GFR may not accurately reflect renal status in patients >70 years, women, acutely ill hospitalized patients and patients with acute renal failure or known renal disease. The MDRD GFR formula is valid only for adults greater than 18 years of age. Note: Creatinine clearance (not GFR) should be used for drug dosing. Performed By: #### [id number], [id number], [id number], [id number], [id number] #### [facility] [address] [place], [place] [id number] [employer] Specialist: Kemar Morgan MD TROPONIN Collected: 07/26/2018 Status: F Source: [facility] 6:19 PM [facility] REPOSITORY TYPE CODE TESTS RESULT OUT OF RANGE REFERENCE UNITS LAB 086576 0.000-0.099 ng/mL Normal TROPONIN <0.015 Result Comment: This test is a quantitative determination of cardiac troponin I. High levels of serum biotin may interfere with this test. Performed By: #### [id number], [id number] #### [facility] [address] [place] [address] [employer] Specialist: Kemar Morgan MD CPK Collected: 07/26/2018 Status: F Source: [facility] 6:19 PM [facility] REPOSITORY TYPE CODE TESTS RESULT OUT OF RANGE REFERENCE UNITS LAB 7787 39-308 unit/L Normal CPK 78 Performed By: #### [id number], [id number] #### [facility] [address] [place] [address] [employer] Specialist: Kemar Morgan MD PT INR Collected: 07/26/2018 Status: F Source: [facility] 6:01 PM [facility] REPOSITORY TYPE CODE TESTS RESULT OUT OF RANGE REFERENCE UNITS LAB 8208(LOINC) Normal INR 1.1 Result Comment: Normal reference range for INR on patients not on anticoagulant therapy: 0.9-1.1. General therapeutic range for patients on anticoagulant therapy: 2.0-3.5. LAB 2099836(LOINC) 9.7-12.7 seconds Normal Protime Patient 12.6 Performed By: #### [id number], [id number], 335999, 223860, [id number] #### [facility] [address] [place] [address] [employer] Specialist: Kemar Morgan MD APTT Collected: 07/26/2018 Status: F Source: [facility] 6:01 PM [facility] REPOSITORY TYPE CODE TESTS RESULT OUT OF RANGE REFERENCE UNITS LAB 3883901(LO 28.0-38.0 seconds INC) Normal APTT Patient 32.8 Performed By: #### [id number], [id number], [id number], 193234, [id number] #### [facility] [address] [place] [address] [employer] Specialist: Kemar Morgan MD AUTO DIFF Collected: 07/26/2018 Status: F Source: [facility] 5:49 [facility] REPOSITORY TYPE CODE TESTS RESULT OUT OF REFERENCE UNITS RANGE LAB 1860937 % Normal Neutrophil % 61.7 LAB 8165134 0.00-0.20 x1000 Baso Normal Count 0.02 LAB 1851080 0.10-1.00 x1000 Anderson Normal Count 0.76 LAB 7640744 % Anderson % Normal 11.1 LAB 9592701 1.40-8.80 x1000 Normal Neutrophil Count 4.22 (ANC) LAB 6409953 % Eosin % Normal 2.1 LAB 4334416 0.00-0.50 x1000 Eos Normal Count 0.14 LAB 2035925 1.20-4.80 x1000 Lymph Normal Count 1.70 LAB 6107718 % Lymph % Normal 24.8 LAB 3582853 % Basos % Normal 0.3 Performed By: #### [id number], [id number], 464700, 605133, 233603 #### [facility] [address] [place] [address] [employer] Specialist: Kemar Morgan MD HEMO Collected: 07/26/2018 Status: F Source: [facility] 5:49 PM [facility] REPOSITORY TYPE CODE TESTS RESULT OUT OF REFERENCE UNITS RANGE LAB 9306660(LOINC) Instr Normal WBC 6.8 LAB 8315 80.0-100.0 fL MCV Normal 88.2 LAB 8153 13.5-17.5 g/dL HGB Normal 14.0 LAB 8340 7.4-10.4 fL MPV Normal 8.4 LAB 8986 4.5-11.0 x10 WBC Normal 6.8 LAB 8618 11.5-14.5 RDW High 15.4 LAB 8313 27.0-34.0 pg MCH Normal 28.9 LAB 26765145 /100WBC Normal Nucleated RBC 0 LAB 8129 41.0-52.0 % HCT Normal 42.8 LAB 8611 4.70-6.10 x10 RBC Normal 4.85 Result Comment: Note: RBC morphology is normal unless otherwise stated. Evaluation performed only if differential is requested. LAB 8851369 150-450 x1000 Low Platelet 147 LAB 8314 32.0-37.0 g/dL MCHC Normal 32.7 LAB 7022398(LOINC) DIFF? Normal No Performed By: #### [id number], [id number], 260852, 837671, [id number] #### [facility] [address] [place], [place] [address] [employer] Specialist: Kemar Morgan MD ED PROGRESS NOTE Observed: 07/26/2018 Status: C Source: [facility] 5:48 PM [facility] REPOSITORY PATIENT STATES HE WAS DIAGNOSED IN MAY WITH A LARGE DVT OF LEFT LOWER LEG PATIENT STATES HE JUST RETURNED FROM A TRIP TO [place] TO SEE A LUNG SPECIALIST DUE TO A LESION ON HIS LUNG AND PE PATIENT WAS SENT IN TO EMERGENCY TO RULE OUT WORSENING SYMPTOMS AND DVT NO SHORTNESS OF BREATH EXAMINED BY LEANA SAUCEDA PA WILL UPDATE PATIENT RETURNED FROM VASCULAR AND LABS DRAWN BY LAB WILL UPDATE ABLE NO NEW COMPLAINTS VASCULAR LAB REPORT Observed: 07/26/2018 Status: F Source: [facility] 5:04 PM [facility] REPOSITORY PRELIMINARY VASCULAR REPORT Venous duplex completed Positive for DVT left popliteal vein, gastrocnemius veins, posterior tibial veins, and peroneal veins. Positive for SVT left small saphenous vein. Negative for DVT right lower extremity. REPORT TO FOLLOW. PET/CT TUMOR BASE Observed: 07/12/2018 Status: F Source: [facility] 7:03 AM [facility] REPOSITORY [facility] Imaging Services [address] [place] [address] PET/CT Tumor Base -Thigh Init MR#: [id number] Acct: [id number] Name: MARIBELL REIS Sr. Rep #: [id number] : 1970 M 48 From: Krishna Carr DO PCP: Nery Silveira MD Status: REG CLI Study: PET/CT Tumor Base -Thigh Init Date of Exam: 07/12/18 Exam# [id number] Ordering Dr: MADDIE CARDENAS EXAMINATION: FDG PET CT INDICATIONS: A 48-year-old male with reported history of pulmonary nodularity. COMPARISON EXAMINATION: CT of the chest report dated 06/20/18. INDEX LESION SIZE SUV INTERPRETATION Left mid posterior lung zone, left upper lobe 15.3 mm (frame 220) 5.3 Fulfills quantitative criteria for viable neoplasm, histopathologic analysis recommended Bilateral upper abdomen-adrenal glands 2.8 Quantitative criteria for viable neoplasm are fulfilled, correlation with CT of the abdomen and pelvis and/or magnetic resonance imaging may be of benefit NON-INDEX LESION SIZE SUV INTERPRETATION Right-left mid-lower posterior lung zones diffuse 3.3 Low likelihood of viable neoplasm TECHNIQUE: Following the intravenous administration of 15 mCi of F-18 deoxyglucose via the left antecubital fossa, multiplanar image acquisitions of the neck, chest, abdomen and pelvis to level of mid thigh, obtained at one hour post radiopharmaceutical administration contemporaneously interpreted with the current CT of the neck, chest, abdomen and pelvis to level of mid thigh, dated 07/12/[address] of the chest report dated 06/20/18 reveal: SERUM GLUCOSE LEVEL: 107 mg/dl. HEIGHT: 74 inches. WEIGHT: 220 lbs. FINDINGS: 1. Focal increased glucose metabolism is defined in the left mid hemithorax pulmonary parenchyma, left upper lobe generating a calculated maximum standard uptake value of 5.3. The maximal axial diameter of the centrally-cavitated parenchymal density on review of CT of the chest dated 07/12/18 is 15.3 mm (transverse). 2. There is an increase in FDG concentration defined in the bilateral upper abdomen contiguous to left-right adrenal glands generating a calculated maximum standard uptake value of 2.8. 3. Diffuse relatively non-nodular linear increased glucose concentration is demonstrated in the bilateral mid-lower posterior lung zones generating a calculated maximum standard uptake value of 3.3. Uptake appears to corresponding to ground-glass density on review of CT of the chest dated 07/12/18. 4. Normal physiologic distribution of the radiopharmaceutical is apparent in the hepatic (1.8) and splenic parenchyma, both renal units, bladder and visualized intestinal tract. There is symmetric and preserved glucose metabolism noted in the visualized portion of the frontal, occipital, temporal and parietal lobes of the cerebral cortex, as well as cerebral hemispheres and basal ganglia. Diffuse intestinal tract activity is noted throughout all four quadrants of the abdominal-pelvic retroperitoneum, mesentery consistent with normal physiologic distribution of the radiopharmaceutical. Pertinent CT findings are as follows. CHEST: A ground-glass density defined in the left lower anterolateral lung field demonstrates no evidence of increased glucose metabolism. Paraseptal emphysematous change is noted in the bilateral upper lung zones. Bilateral axillary soft tissue densities with fatty hilus formation are non-glucose avid. ABDOMEN AND PELVIS: Atherosclerotic calcification is defined in the abdominal aorta without evidence of dilatation, aneurysm formation. Pelvic arterial calcification is observed. Bilateral fat-containing inguinal hernias are noted. Right-left inguinal soft tissue densities demonstrate no evidence of increased glucose metabolism. Dystrophic calcification is manifest within the prostate gland without evidence of quantitatively significant enhanced FDG uptake. SKELETAL: Degenerative changes defined in the cervical, thoracic and lumbar spine demonstrate no evidence for glucose hypermetabolism. PET/PET/CT Tumor Base -Thigh Init IMPRESSION: 1. Increased glucose metabolism defined in the left mid posterior lung field, left upper lobe fulfills quantitative criteria for viable neoplasm. Histopathologic analysis is recommended. 2. The increase in FDG concentration noted in the bilateral upper abdomen contiguous to the adrenal glands fulfills quantitative criteria for viable neoplasm with single-point technique. Correlation with CT of the abdomen and pelvis and/or magnetic resonance imaging utilizing adrenal gland protocol may be of benefit for further evaluation. 3. Enhanced radiopharmaceutical concentration noted in the bilateral mid-lower posterior lung zones, linear and relatively non- nodular in presentation likely represents an inflammatory process-pneumonitis. Electronic Signature Krishna Carr D.O. Electronically Signed: Krishna Carr DO at 22:04 EST Tel , Service support , CC: MADDIE CARDENAS; Nery Silveira MD Manager Of Operations: Signed PROGRESS Observed: 07/07/2018 Status: COMPLETED Source: [place] 2:04 PM [facility] REPOSITORY HNO ID: [id number] Author: Nery Silveira Service: (none) Author Type: Physician Type: Progress Notes Filed: 07/07/2018 8:57 PM Note Text: Chief Complaint Patient presents with: Hospital F/U: [facility] pulmonary embolism, DVT left leg HPI Maribell Reis SR is a 48 year old male who presents here today for Above Complaints.. Patient was diagnosed with DVT 06/18/2018 LLE from the femoral vein to the posterior tibial vein. Was started on xarelto and on 06/20/2018 present to the ER with LLE pain, edema, lightheadedness, dizziness but no shortness of breath or chest pain. Was found to have small pulmonary emboli involving branches of the LLL. He was also found to have a left upper lobe cavitary lesion concerning for pneumonia, TB, fungal or malignancy. Had URI symptoms prior to all this and seemed to take for ever to resolve. CMP, Mg, were ok. CBC ok except for slightly low Plt's, Viral sputum PCR was neg, Strep Pneumonia urine Ag neg along with Legionella urine AG. Patient was to have a CT guided lung biopsy but was put on hold until it was known if he had Tb. He was therefore sent home with plan to have biopsy 06/30/2018. He has changed zookeeper and will be seeing a family friend in [place] next week for the biopsy and is scheduled for a PET scan this week. He did the Eliquis 10 mg twice a day for 7 days and then just one twice a day. Since doing this the swelling in the left leg has increased up into the thigh and more than it had been previously. No pain but tight to touch. No chest pain or shortness of breath. Leg has become slightly pinkish red. Past medical history, appointments, medications, allergies reviewed. Previous Medical History PAST MEDICAL HISTORY Diagnosis Date - Lumbago - Other dyschromia 02/08/2008 Done on L arm in : not done professionally - Smoker 02/08/2008 - Tobacco use disorder 02/08/2008 Previous Surgical History PAST SURGICAL HISTORY Procedure Laterality Date - NONE Family History FAMILY HISTORY Problem Relation Age of Onset - Coronary Artery Disease Father MA age 56, stents - Hypertension Father - None Mother - Cancer Maternal Aunt lymphoma Patient Allergies ALLERGIES No Known Allergies Current Medications Current Outpatient Prescriptions on File Prior to Visit: ALBUTEROL 90 MCG/ACTUATION AEROSOL INHALER Inhale one(1) - two(2) puffs four(4) times a day as needed for wheezing and shortness of breath. No current facility-administered medications on file prior to visit. Social History Social History Marital status: Spouse name: Years of education: Number of children: Social History Main Topics Smoking status: Current Every Day Smoker Packs/day: 2.00 Years: 25.00 Types: Cigarettes Smokeless tobacco: Never Used Comment: since age of 18 yrs old Alcohol use: No Drug use: No Review of Symptoms REVIEW OF SYSTEMS See HPI EXAM: BP 122/84 Pulse 80 Resp 14 Wt 101.2 kg (223 lb) BMI 28.63 kg/m? General Appearance: Well appearing, alert, in no acute distress, well-hydrated, well nourished.. Neck: Supple, no adenopathy; thyroid symmetric, normal size, no bruits. Lungs: lungs clear to auscultation. No wheezing, rhonchi, rales. Heart: RRR without murmur, gallop, or rubs. No ectopy. Abdomen: Normal abdominal exam, Abdomen soft, non-tender. Bowel sounds normal. No masses, organomegaly. Extremities: has 2+ edema in the left lower extremity to about the knee. No signs of infection. No redness. Skin is tight. No significant calf pain to palpation. Peripheral Pulses: Normal in both lower extremities. Health Maintenance List DTAP,TDAP,TD(1 - Tdap) due on 1989 ONE PNEUMOVAX PRIOR TO AGE 65 due on 1989 LIPID SCREEN due on 2005 DIABETES SCREEN due on 06/18/2021 INFLUENZA Completed Data reviewed A/P ASSESSMENT/PLAN: 1. Deep vein thrombosis (DVT) of femoral vein of left lower extremity, unspecified chronicity (HCC) - ICD9: 453.41, ICD10: I82.412 (primary diagnosis) - Cont the eliquis for next 6 months unless pulmonary feels otherwise. 2. Other acute pulmonary embolism without acute cor pulmonale (HCC) - ICD9: 415.19, ICD10: I26.99 - As above 3. Cavitary lesion of lung - ICD9: 518.89, ICD10: J98.4 - Patient f/u with Pulmonary 4. Smoker - ICD9: 305.1, ICD10: F17.200 - Cessation encouraged. - Counseling was given focusing on the harmful effects of this addiction especially given the patient's medical condition(s) which will be worsened because of the chemicals in tobacco. - patient in process of quitting 5. Leg edema, left - ICD9: 782.3, ICD10: R60.0 - Suspect the recent increase in swelling is positional and encouraged support socks around 20 mmHG along with elevating the leg when sitting or laying. 6. Thrombocytopenia (HCC) - ICD9: 287.5, ICD10: D69.6 - This may be secondary to the clotting. - Repeat CBC + DIFF in a month Signed Prescriptions Disp Refills apixaban (ELIQUIS) 5 mg tab(s) 60 tablet 3 Sig: Take 1 tablet by mouth twice daily. SEEMA: No F/u 5-6 months WAE Time entering room was 2:02 PM and time leaving was 2:58 PM with 5 mins to step out to address other patient issue. (total face to face time was 51 min) Nery Silveira MD CNOV Observed: 07/07/2018 Status: COMPLETED Source: [place] 1:40 PM [facility] REPOSITORY Office Visit (FAMPWS) MARIBELL REIS ([id number]) 1970 M Date Time Provider Department 07/07/18 1:40 PM NERY SILVEIRA FAMPWS During your visit today, we recorded the following information about you: Pulse Respiration Blood pressure Weight 80/minute 14/minute 122/84 101.2 kg Nery Silveira MD 07/07/2018 8:57 PM Signed Chief Complaint Patient presents with: Hospital F/U: [facility] pulmonary embolism, DVT left leg HPI Maribell Qi Reis SR is a 48 year old male who presents here today for Above Complaints.. Patient was diagnosed with DVT 06/18/2018 LLE from the femoral vein to the posterior tibial vein. Was started on xarelto and on 06/20/2018 present to the ER with LLE pain, edema, lightheadedness, dizziness but no shortness of breath or chest pain. Was found to have small pulmonary emboli involving branches of the LLL. He was also found to have a left upper lobe cavitary lesion concerning for pneumonia, TB, fungal or malignancy. Had URI symptoms prior to all this and seemed to take for ever to resolve. CMP, Mg, were ok. CBC ok except for slightly low Plt's, Viral sputum PCR was neg, Strep Pneumonia urine Ag neg along with Legionella urine AG. Patient was to have a CT guided lung biopsy but was put on hold until it was known if he had Tb. He was therefore sent home with plan to have biopsy 06/30/2018. He has changed zookeeper and will be seeing a family friend in [place] next week for the biopsy and is scheduled for a PET scan this week. He did the Eliquis 10 mg twice a day for 7 days and then just one twice a day. Since doing this the swelling in the left leg has increased up into the thigh and more than it had been previously. No pain but tight to touch. No chest pain or shortness of breath. Leg has become slightly pinkish red. Past medical history, appointments, medications, allergies reviewed. Previous Medical History PAST MEDICAL HISTORY Diagnosis Date - Lumbago - Other dyschromia 02/08/2008 Done on L arm in : not done professionally - Smoker 02/08/2008 - Tobacco use disorder 02/08/2008 Previous Surgical History PAST SURGICAL HISTORY Procedure Laterality Date - NONE Family History FAMILY HISTORY Problem Relation Age of Onset - Coronary Artery Disease Father MA age 56, stents - Hypertension Father - None Mother - Cancer Maternal Aunt lymphoma Patient Allergies ALLERGIES No Known Allergies Current Medications Current Outpatient Prescriptions on File Prior to Visit: ALBUTEROL 90 MCG/ACTUATION AEROSOL INHALER Inhale one(1) - two(2) puffs four(4) times a day as needed for wheezing and shortness of breath. No current facility-administered medications on file prior to visit. Social History Social History Marital status: Spouse name: Years of education: Number of children: Social History Main Topics Smoking status: Current Every Day Smoker Packs/day: 2.00 Years: 25.00 Types: Cigarettes Smokeless tobacco: Never Used Comment: since age of 18 yrs old Alcohol use: No Drug use: No Review of Symptoms REVIEW OF SYSTEMS See HPI EXAM: BP 122/84 Pulse 80 Resp 14 Wt 101.2 kg (223 lb) BMI 28.63 kg/m? General Appearance: Well appearing, alert, in no acute distress, well-hydrated, well nourished.. Neck: Supple, no adenopathy; thyroid symmetric, normal size, no bruits. Lungs: lungs clear to auscultation. No wheezing, rhonchi, rales. Heart: RRR without murmur, gallop, or rubs. No ectopy. Abdomen: Normal abdominal exam, Abdomen soft, non-tender. Bowel sounds normal. No masses, organomegaly. Extremities: has 2+ edema in the left lower extremity to about the knee. No signs of infection. No redness. Skin is tight. No significant calf pain to palpation. Peripheral Pulses: Normal in both lower extremities. Health Maintenance List DTAP,TDAP,TD(1 - Tdap) due on 1989 ONE PNEUMOVAX PRIOR TO AGE 65 due on 1989 LIPID SCREEN due on 2005 DIABETES SCREEN due on 06/18/2021 INFLUENZA Completed Data reviewed A/P ASSESSMENT/PLAN: 1. Deep vein thrombosis (DVT) of femoral vein of left lower extremity, unspecified chronicity (HCC) - ICD9: 453.41, ICD10: I82.412 (primary diagnosis) - Cont the eliquis for next 6 months unless pulmonary feels otherwise. 2. Other acute pulmonary embolism without acute cor pulmonale (HCC) - ICD9: 415.19, ICD10: I26.99 - As above 3. Cavitary lesion of lung - ICD9: 518.89, ICD10: J98.4 - Patient f/u with Pulmonary 4. Smoker - ICD9: 305.1, ICD10: F17.200 - Cessation encouraged. - Counseling was given focusing on the harmful effects of this addiction especially given the patient's medical condition(s) which will be worsened because of the chemicals in tobacco. - patient in process of quitting 5. Leg edema, left - ICD9: 782.3, ICD10: R60.0 - Suspect the recent increase in swelling is positional and encouraged support socks around 20 mmHG along with elevating the leg when sitting or laying. 6. Thrombocytopenia (HCC) - ICD9: 287.5, ICD10: D69.6 - This may be secondary to the clotting. - Repeat CBC + DIFF in a month Signed Prescriptions Disp Refills apixaban (ELIQUIS) 5 mg tab(s) 60 tablet 3 Sig: Take 1 tablet by mouth twice daily. SEEMA: No F/u 5-6 months WAE Time entering room was 2:02 PM and time leaving was 2:58 PM with 5 mins to step out to address other patient issue. (total face to face time was 51 min) MD Nery Timmons MD 07/07/2018 2:58 PM Addendum Elevate left leg when no up and around. please wear support sock (violette form from [employer] or [employer]) 20 mmHG please get none fasting lab on or after 08/07/2018 Referring Provider: SELF [[id number]] Allergies As of Date: 07/07/2018 (No Known Allergies) Date Reviewed: 07/07/2018 Reviewed by: Nery Silveira - Fully Assessed Reason for Visit: Hospital F/U [57] Cmt: [facility] pulmonary embolism, DVT left leg Primary Visit Diagnosis:Deep vein thrombosis (DVT) of femoral vein of left lower extremity, unspecified chronicity (HCC) [I82.412] Other Visit Diagnoses:Other acute pulmonary embolism without acute cor pulmonale (HCC) [I26.99] Cavitary lesion of lung [J98.4] Comment:BRENDAN Smoker [F17.200] Leg edema, left [R60.0] Thrombocytopenia (HCC) [D69.6] Order(s):apixaban (ELIQUIS) 5 mg tab(s)Take 1 tablet by mouth twice daily.Disp: 60 tabletRfl: 3 CBC + DIFF [SQCBCDIF] Order #: [id number] FUTURE Prescriptions as of 07/07/2018 Sig: APIXABAN 5 MG TABLET Take 1 tablet by mouth twice * ALBUTEROL 90 MCG/ACTUATION AE* Inhale one(1) - two(2) puffs * Problem List As Of Date 07/07/2018 Noted Resolved Smoker [F17.200] INVALID FOR* More... More... Deep vein thrombosis (DVT) of femoral vein of l*INVALID FOR* More... Pulmonary embolus (HCC) [I26.99] INVALID FOR* More... Cavitary lesion of lung [J98.4] INVALID FOR* More... Other instructions from your clinician: Elevate left leg when no up and around. please wear support sock (violette form from [employer] or [employer]) 20 mmHG please get none fasting lab on or after 08/07/2018 Prescriptions ordered this encounter Disp Refills Start End APIXABAN 5 MG TABLET 60 t* 3 07/07/2018 Route: ORAL Sig: Take 1 tablet by mouth twice daily. Medications Discontinued During This Encounter apixaban (ELIQUIS) 5 mg tab(s) 06/22/2018 07/07/2018 Class: Historical Med Sig: TWICE A DAY Disc: Reason for discontinue is not on file. Disposition: Return for 5-6 months complete PE. Follow-up and Disposition History Recorded Encounter Status:Closed by NERY SILVEIRA on 07/07/18 12 LEAD ELECTROCARDIOGRAM Observed: 06/25/2018 Status: F Source: [place] 9:25 AM [facility] REPOSITORY [facility] Cardiovascular Services [address] [place] [id number] 12 Lead EKG 06/20/18 0354 MR#: [id number] Acct: [id number] Name: MARIBELL REIS . Rep #: [id number] : 1970 48 From: Jairo Urrutia MD Attending Dr: Hugo Baldwin Status: DIS IN Ordering Dr: Herminio West MD Date: 06/20/18 Location: [facility] Sex: M C Admitted: 06/20/18 Test Reason : EDEMA Blood Pressure : / mmHG Vent. Rate : 079 BPM Atrial Rate : 079 BPM P-R Int : 156 ms QRS Dur : 106 ms QT Int : 352 ms P-R-T Axes : 034 046 023 degrees QTc Int : 403 ms Normal sinus rhythm Normal ECG Confirmed by RENAN ELAM, JAIRO ([id number]), sports editor PRECIOUS YUN ([id number]) on 06/22/2018 4:16:07 PM Referred By: BRETT Confirmed By:JAIRO URRUTIA MD 06/22/18 1616 Date Jairo Urrutia MD CC: No Primary Care Physician; Hugo Baldwin; Herminio West MD Signed DISCHARGE SUMMARY Observed: 06/23/2018 Status: F Source: [place] 1:39 PM [facility] REPOSITORY [facility] Medical Records Department [address] [place] [address] Discharge Summary 06/22/18 1642 MR#: [id number] Acct: [id number] Name: MARIBELL REIS Sr. Rep #: [id number] : 1970 48 From: Hugo Baldwin MD PCP: Care Physician, No Primary Status: DIS IN Y Location: [place] [address] Discharge Date and Diagnosis Date of Admission: 06/20/18 Date of Discharge: 06/22/18 - Primary Discharge Diagnosis #1 acute small multiple pulmonary emboli involving the branches of the left lower lobe pulmonary artery. #2 acute DVT of the posterior tibial vein/mid femoral vein and lesser saphenous vein. #3 left upper lobe cavitary lesion. - Secondary Discharge Diagnosis Chronic Problems Tobacco use (Chronic) Hospital Course and Treatment Imaging Results: Clinical Impression(s) from Imaging Studies Chest CTA 06/20/18 03:43 IMPRESSION: Small pulmonary emboli involving branches of the left lower lobe pulmonary artery. Left upper lobe cavitary lesion. Considerations include cavitating pneumonia, tuberculosis, rare fungal infections or less likely malignancy. Mediastinal lymphadenopathy. N.B. : The above information has been verbally conveyed by Timothy Jones MD to Dr. Brett MD, on 06/20/2018 05:30:28 (ET). Electronically Signed: Timothy Jones MD at 5:31 EST , Service support , Dr. Young, pulmonology. Operations: None Procedures: 2-D Echocardiogram, EKG Summary of Care Provided: Patient seen and examined on the day of this child and appendectomy to be stable to be discharged home. CT-guided lung biopsy canceled because we need to rule out active tuberculosis before the procedure. His vital signs are stable This is a 48 years old male patient presented to the ED because of worsening left neck pain secondary to recently diagnosed extensive left lower extremity DVT as well as dizziness and lightheadedness and he was found to have small pulmonary emboli of the branches left lower lobe pulmonary artery as well as incidental left upper lobe cavitary lesion. #1 small multiple pulmonary emboli involving branches of the left lower lobe pulmonary artery: Treated with IV heparin drip and later, started on Eliquis. This is considered provoked secondary to recent acute DVT. There was no indication to do hypercoagulability workup. His vital signs were stable and has a supportive status was stable as well. Patient discharged home in stable medical condition, discharged on Eliquis loading dose 10 mg p.o. twice daily for 7 days and then instructed to take 5 mg p.o. twice daily. #2 acute DVT of the posterior tibial vein to mid femoral vein and lesser saphenous vein: This was diagnosed on June 18, 2018 and patient was discharged home on Xarelto. During this admission, he was treated with IV heparin drip and later, he was converted to Eliquis twice daily and was discharged on Eliquis as above. #3 left upper lobe cavitary lesion: Incidental finding. Pulmonology consulted and recommended CT scan guided lung biopsy. The procedure was not done because radiology wanted to rule out active tuberculosis before the procedure. Patient discharged home, scheduled to have CT scan guided lung biopsy on June 30, 2018 at 10 AM as outpatient, instructed to stop taking Eliquis 48 hours before the procedure. Plan to follow-up with pulmonology as outpatient. Patient discharged home in a stable medical condition, discharged on Eliquis for acute PE and DVT, discharged on OxyIR as needed for pain, plan to follow- up with PCP in 1 week, CT scan guided lung biopsy on June 30, 2018 as above, follow-up with pulmonology as outpatient. This note was generated with [employer] software. It may contain incorrect words, spelling, and punctuation that were not noted in checking the note before signing. - Physical Exam General: Alert, Oriented x3, Cooperative, No apparent distress HEENT: Atraumatic, PERRLA, EOMI, Normocephalic Oral: Moist Mucosa, No Gingival or Mucosal Lesions/ Ulcerations Neck: Supple, No JVD, Negative Carotid Bruits, Trachea Midline, Thyroid Normal Size and Texture Lungs: Clear to auscultation, No rhonchi, No wheeze, No rales, Diminished Cardiovascular: Regular rate, Regular Rhythm, Normal S1, Normal S2 Abdomen: Bowel Sounds Present, Soft, Non Tender, Non-Distended, No Hepato-splenomegaly Extremities: No clubbing, No cyanosis, No edema, - - Left leg is swollen, mildly tender. Skin: No rashes, No breakdown Lymphatic: No Cervical, Supraclavicular, or Inguinal Adenopathy Neurological: Cranial nerves II-XII grossly intact, Neuro grossly intact Psych/Mental Status: Normal Affect, Appropriate Vital Signs Temp Pulse Resp BP Pulse Ox 98.1 F 81 18 125/71 H 97 06/22/18 09:53 06/22/18 11:41 06/22/18 09:53 06/22/18 09:53 06/22/18 09:53 Oxygen Delivery Method Room Air Weight: 218 lb 4.122 oz Body Mass Index (BMI) 28.0 Intake and Output for Last 24 Hours Microbiology Past 72 Hours 06/21/18 07:18 Gram Stain - Final Sputum, Induced/Lukens Respiratory Culture - Preliminary Laboratory Tests Past 24 Hrs PT 13.0 INR 1.0 APTT 48.5 H 75.0 H 31.5 PT 13.5 INR 1.0 APTT Cancelled 30.3 Discharge Activity: Return to Normal Activity Weight Bearing Status: Weight bearing as tolerated Call your doctor if you observe: Fever of 101 or Higher, Shortness of breath, Dizziness, Fainting spells, Chest pain, Increased palpitations (irregular heartbeat), Uncontrolled pain Home Medications: Medications to take at Discharge Apixaban [Eliquis] 5 mg PO BID #90 tab 06/22/18 Oxycodone [Oxyir] 5 mg PO Q8H PRN PRN 4 Days #14 tab 06/22/18 Following Prescrptions Were Given to Patient: Oxycodone [Oxyir] 5 mg PO Q8H PRN PRN 4 Days #14 tab PRN Reason: Moderate Pain (pain scale 4-5) Apixaban [Eliquis] 5 mg PO BID #90 tab Primary Care Physician: Care Physician,No Primary [Primary Care Provider] - Please follow up with your Primary Care Physician in: 1 week. Please Follow Up With: CT guided biopsy Please Follow Up With: Crescencio Young MD When: as scheduled. Patient Instructions: Discharge Instructions for Deep Vein Thrombosis, Discharge Instructions for Pulmonary Embolism Disposition: Home Minutes spent on discharge:: 34 Patient Condition:: Stable Medical Necessity - Tobacco Use Smoking Status: Current every day smoker Tobacco Use: Cigarettes Meaningful Use Info Meaningful Use Diagnoses (Choose all that apply): None applicable Code Visit Inpatient E AND M: 88914 Disch Hosp 06/23/18 1339 <Electronically signed by Hugo Baldwin MD> Date Hugo Baldwin MD Cosigner Signature (if applicable): Date CC: No Primary Care Physician; Crescencio Young MD; Hugo Baldwin; PCP Signed DISCHARGE INSTRUCTION Observed: 06/22/2018 Status: F Source: [place] 1:28 PM [facility] REPOSITORY [facility] Medical Records Department [address] [place] [id number] Instructions for Home/Discharge Instructions 06/22/18 1327 MR#: [id number] Acct: [id number] Name: MARIBELL REIS . Rep #: [id number] : 1970 48 From: Hugo Baldwin MD PCP: Care Physician, No Primary Status: ADM IN - Discharge Diagnoses Current Active Problems: Current Active and Chronic Problems Pulmonary embolism (Acute) Left leg DVT (Acute) Cavitary lesion of lung (Acute) Tobacco use (Chronic) Elevated BP without diagnosis of hypertension (Acute) You will use the following diet at home:: Regular Your food should be the consistency of: Regular Discharge Activity: Return to Normal Activity Weight Bearing Status: Weight bearing as tolerated Call your doctor if you observe: Fever of 101 or Higher, Shortness of breath, Dizziness, Fainting spells, Chest pain, Increased palpitations (irregular heartbeat), Uncontrolled pain Instructions: Discharge Instructions for Deep Vein Thrombosis, Discharge Instructions for Pulmonary Embolism Additional Instructions: CT-guided lung biopsy scheduled on June 30, 2018 at 10 AM. Please stop taking Eliquis 48 hours before the procedure. Allergies/Adverse Reactions: Allergies No Known Allergies Allergy (Verified 06/20/18 02:22) Medications to take at Discharge Apixaban [Eliquis] 5 mg PO BID #90 tab 06/22/18 Oxycodone [Oxyir] 5 mg PO Q8H PRN PRN 4 Days #14 tab 06/22/18 The following prescriptions were given: Oxycodone [Oxyir] 5 mg PO Q8H PRN PRN 4 Days #14 tab PRN Reason: Moderate Pain (pain scale 4-5) Apixaban [Eliquis] 5 mg PO BID #90 tab Primary Care Physician: Care Physician,No Primary [Primary Care Provider] - Please follow up with your Primary Care Physician in: 1 week. Test Results: Test results from this visit will be discussed in further detail at your follow-up appointment, if applicable. Please Follow Up With: CT guided biopsy Please Follow Up With: Crescencio Young MD When: as scheduled. 06/22/18 1328 <Electronically signed by Hugo Baldwin MD> Date Hugo Baldwin MD CC: No Primary Care Physician; Crescencio Young MD DISCHARGE INSTRUCTION Observed: 06/22/2018 Status: F Source: [place] 1:17 PM [facility] REPOSITORY [facility] Medical Records Department [address] [place] [address] Instructions for Home/Discharge Instructions 06/22/18 1314 MR#: [id number] Acct: [id number] Name: MARIBELL REIS Sr. Rep #: [id number] : 1970 48 From: Hugo Baldwin MD PCP: Care Physician, No Primary Status: ADM IN - Discharge Diagnoses Current Active Problems: Current Active and Chronic Problems Pulmonary embolism (Acute) Left leg DVT (Acute) Cavitary lesion of lung (Acute) Tobacco use (Chronic) Elevated BP without diagnosis of hypertension (Acute) You will use the following diet at home:: Regular Your food should be the consistency of: Regular Discharge Activity: Return to Normal Activity Weight Bearing Status: Weight bearing as tolerated Call your doctor if you observe: Fever of 101 or Higher, Shortness of breath, Dizziness, Fainting spells, Chest pain, Increased palpitations (irregular heartbeat), Uncontrolled pain Instructions: Discharge Instructions for Pulmonary Embolism, Discharge Instructions for Deep Vein Thrombosis Additional Instructions: CT-guided lung biopsy scheduled for June 30, 2018 at 10 AM. Please stop taking Xarelto 48 hours before the procedure. Allergies/Adverse Reactions: Allergies No Known Allergies Allergy (Verified 06/20/18 02:22) Medications to take at Discharge Rivaroxaban [Xarelto] 15 mg PO BID #42 tab 06/18/18 Oxycodone [Oxyir] 5 mg PO Q8H PRN PRN 4 Days #14 tab 06/22/18 Rivaroxaban [Xarelto] 20 mg PO DAILY #90 tab 06/22/18 The following prescriptions were given: Oxycodone [Oxyir] 5 mg PO Q8H PRN PRN 4 Days #14 tab PRN Reason: Moderate Pain (pain scale 4-5) Rivaroxaban [Xarelto] 20 mg PO DAILY #90 tab Primary Care Physician: Care Physician,No Primary [Primary Care Provider] - Please follow up with your Primary Care Physician in: 1 week. Test Results: Test results from this visit will be discussed in further detail at your follow-up appointment, if applicable. Please Follow Up With: CT guided biopsy Please Follow Up With: Crescencio Young MD When: as scheduled. 06/22/18 1317 <Electronically signed by Hugo Baldwin MD> Date Hugo Baldwin MD CC: No Primary Care Physician; Crescencio Young MD PROTHROMBIN TIME W/INR Collected: 06/22/2018 Status: F Source: [place] 7:57 AM [facility] REPOSITORY TYPE CODE TESTS RESULT OUT OF RANGE REFERENCE UNITS LAB L300.4150 11.7-14.9 SECONDS Normal PROTIME 13.5 LAB L300.4200 Normal INR 1.0 Performed By: #### L300.3900, L300.4310 #### [facility] [address] [place], [place], [id number] PARTIAL THROMBOPLAST Collected: 06/22/2018 Status: F Source: [place] TIME 7:57 AM [facility] REPOSITORY TYPE CODE TESTS RESULT OUT OF RANGE REFERENCE UNITS LAB L300.4310 24.1-36.2 Seconds Normal PTT 30.3 Performed By: #### L300.3900, L300.4310 #### [facility] [address] [place], [place], [id number] PROTHROMBIN TIME W/INR Collected: 06/22/2018 Status: F Source: [place] 6:25 AM [facility] REPOSITORY TYPE CODE TESTS RESULT OUT OF RANGE REFERENCE UNITS LAB L300.4150 11.7-14.9 SECONDS Normal PROTIME 13.0 LAB L300.4200 Normal INR 1.0 Performed By: #### L300.3900, L300.4310 #### [facility] [address] [place], [address] PARTIAL THROMBOPLAST Collected: 06/22/2018 Status: F Source: TIME 6:25 AM [facility] REPOSITORY TYPE CODE TESTS RESULT OUT OF RANGE REFERENCE UNITS LAB L300.4310 24.1-36.2 Seconds Normal PTT 31.5 Performed By: #### L300.3900, L300.4310 #### [facility] [address] [facility] [address] PARTIAL THROMBOPLAST Collected: 06/22/2018 Status: F Source: [place] TIME 12:58 AM [facility] REPOSITORY TYPE CODE TESTS RESULT OUT OF REFERENCE UNITS RANGE LAB L300.4310 24.1-36.2 Seconds High PTT 75.0 Performed By: #### L300.4310 #### [facility] [address] [place], [address] PARTIAL THROMBOPLAST Collected: 06/21/2018 Status: F Source: [place] TIME 5:20 PM [facility] REPOSITORY TYPE CODE TESTS RESULT OUT OF REFERENCE UNITS RANGE LAB L300.4310 24.1-36.2 Seconds High PTT 48.5 Performed By: #### L300.4310 #### [facility] [address] [place], [address] ECHOCARDIOGRAM COMPLETE Observed: 06/21/2018 Status: F Source: [place] 2:27 PM [facility] REPOSITORY [facility] Cardiovascular Services [address] [place] [address] Echo Complete 06/21/18 1035 MR#: [id number] Acct: [id number] Name: CHATOMARIBELL DAVE Qi Sr. Rep #: [id number] : 1970 48 From: Jairo Urrutia MD Attending Dr: Hugo Baldwin Status: ADM IN Ordering Dr: Mattie Serrano Date: 06/20/18 Location: [facility] Sex: M C Admitted: 06/20/18 Reason For Study: EMBOLI Procedure This was a 2D Doppler, Color Flow transthoracic echocardiogram. Exam performed portable in patient room. Left Ventricle Normal LV size. Left ventricular systolic function is normal. The estimated ejection fraction is 55 %. Normal diastology for age. No regional wall motion abnormalities noted. Right Ventricle Normal RV size. Normal systolic function. Atria Normal left atrium. Normal right atrium. Mitral Valve Normal mitral valve. Tricuspid Valve Normal tricuspid valve. Aortic Valve Normal aortic valve. Trisinus/trileaflet aortic valve. Pulmonic Valve Normal pulmonic valve. Great Vessels Normal aortic root. The pulmonary artery is normal size. Normal inferior vena cava. Pericardium/Pleural No pericardial effusion. MMode/2D Measurements AND Calculations LVIDd: 4.9 cm IVSd: 1.3 cm Ao root diam: 4.1 cm LVIDs: 3.5 cm LVPWd: 1.1 cm RVDd: 4.1 cm FS: 28.8 % LAV(MOD-bp): 68.1 ml LA A4 area: 21.2 cm2 LA dimension(2D): 4.0 cm LAV(MOD-bp) Indexed: 30.5 ml/m2 LAV(MOD-sp2): 63.7 ml LAV(MOD-sp4): 63.2 ml RA A4 area: 14.0 cm2 Time Measurements MV dec time: 0.28 sec Doppler Measurements AND Calculations MV E max satya: 53.5 cm/sec Lat Peak E' Satya: 10.3 cm/sec Med Peak E' Satya: 8.2 cm/sec MV A max satya: 36.7 cm/sec E/E' lat: 5.2 E/E' med: 6.5 MV E/A: 1.5 Ao V2 max: 104.7 cm/sec LV V1 max: 84.9 cm/sec Ao max P.4 mmHg LV V1 max P.9 mmHg Interpretation Summary Normal LV size. Left ventricular systolic function is normal. The estimated ejection fraction is 55 %. Normal diastology for age. Structurally normal valves. Ordering Physician: Mattie Serrano Performed By: Thea Green, RDCS, RVT 06/21/18 142 Date Jairo Urrutia MD CC: No Primary Care Physician; Mattie Serrano; Hugo Baldwin Date Dictated: 06/21/18 1035 Date Transcribed: 06/21/181425 Manager Of Operations: Signed PARTIAL THROMBOPLAST Collected: 06/21/2018 Status: F Source: [place] TIME 10:30 AM [facility] REPOSITORY Order Comment: Comments: heparin gtt protocol TYPE CODE TESTS RESULT OUT OF REFERENCE UNITS RANGE LAB L300.4310 24.1-36.2 Seconds High PTT 47.9 Performed By: #### L300.4310 #### [facility] [address] [place] [address]. [place], [address] Observed: 06/21/2018 Status: F Source: [place] CULTURE, SPUTUM 7:18 AM [facility] REPOSITORY Has pt arrived? Y Gram Stain Acceptable Specimen? Acceptable Specimen(Evaluation not needed) Gram Stain 2+ White Blood Cells 1+ Epithelial cells 3+ Gram positive cocci in chains and clusters Rare Gram negative rods Rare Gram positive rods Resp. Culture #2 No Streptococcus pneumoniae, beta-hemolytic Streptococcus or Staphylococcus aureus isolated. ORGANISM 1: Presumptive C albicans Amount Growth 2+ ORGANISM 2: Mixed Bhavna Amount Growth 3+ Performed By: #### M100.0800 #### [facility] [address] [place] [address], [address] CONSULTATION Observed: 06/21/2018 Status: F Source: [place] 5:37 AM [facility] REPOSITORY [facility] Medical Records Department [address] [place] [address] Consultation 06/20/18 1014 MR#: [id number] Acct: [id number] Name: MARIBELL REIS Sr. Rep #: [id number] : 1970 48 From: Crescencio Young MD PCP: Care Physician, No Primary Status: ADM IN Y Location: [facility] [id number] Problem List (1) Pulmonary embolism Status: Acute Qualifiers: Chronicity: acute (2) Left leg DVT Status: Acute Qualifiers: Affected thrombotic vein of extremity: unspecified vein of extremity Chronicity: acute Qualified Code(s): I82.402 - Acute embolism and thrombosis of unspecified deep veins of left lower extremity (3) Cavitary lesion of lung Status: Acute (4) Tobacco use Status: Chronic (5) Elevated BP without diagnosis of hypertension Status: Acute Reason for Consult Date of Consultation: 06/20/18 Reason for Consultation: Abnormal CT History of Present Illness: The patient is a 48 year old M, with no reported past medical history, who presented to [facility] on 06/20/2018 secondary to acute left lower extremity pain associated with a DVT. Patient was seen previously in the emergency room with complaints of left lower extremity pain. Patient had originally had a superficial phlebitis, per progressed to a DVT. Patient was placed on Xarelto therapy on Thursday. Patient's pain continued to progress, so he was recommended to come back to the emergency room. In the emergency room, patient had a CT scan of the chest and noted to have pulmonary emboli. Patient was also noted to have a cavitary lesion of the left upper lobe. Patient was placed on a heparin drip and admitted to the floor. On my arrival, patient was not reporting any dyspnea, but stated that his exertional tolerance was significantly limited secondary to left lower extremity pain. Patient denied any fever, chills, nausea, vomiting or diaphoresis. No chest pain is reported. Patient did not have any weakness or paresthesia, but stated that his ability to stand was severely limited secondary to pain. Patient stated dangling his left leg led to severe pain. Patient denies any unintentional weight loss. Patient denies any hemoptysis. Patient does have a chronic productive cough of clear sputum, typically with waking in the morning. Patient does report a [id number] smoking history and denied any previous history of abnormal CT scans. 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 Patient does report being in the previously and stationed in [place]. Patient denies any history of tuberculosis. Patient has not been incarcerated. Patient is unaware of a family history of cancer or clotting disorders. Patient has never had a DVT previously. Patient denies any illicit drug use or excessive alcohol. Review of systems otherwise negative x10 systems. Past Medical History Past Medical History (Chronic Problems): Chronic Problems Tobacco use (Chronic) Allergies No Known Allergies Allergy (Verified 06/20/18 02:22) Home Medications: Ambulatory Orders Medication Instructions Recorded Rivaroxaban [Xarelto] 15 mg PO BID #42 tab 06/18/18 Surgical History: no surgical history Psychiatric History: No pertinent psych hx Lives: Spouse/ Significant Other Smoking Status: Current every day smoker Tobacco Use: Cigarettes Alcohol: None Drugs: None - *Family History Maternal History Items: Cancer Paternal History Items: Heart Disease, Hypertension Review of Systems Comment: See HPI Patient Problems: Active and Suspected Problems Pulmonary embolism (Acute) Left leg DVT (Acute) Cavitary lesion of lung (Acute) Elevated BP without diagnosis of hypertension (Acute) Objective: CT scan of the chest was personally reviewed showing left lower lobe pulmonary emboli, apical emphysematous changes and a 1.2 x 1.6 cavitary lesion in the posterior aspect of the left upper lobe. No lytic lesions of the spine were appreciated. Mediastinal lymphadenopathy was appreciated. - Physical Exam General: Alert, Oriented x3, Cooperative, No apparent distress, Well developed, Well nourished, - - Speaks in full sentences. HEENT: Atraumatic, PERRLA, EOMI, Normocephalic, - - No scleral icterus or injection noted. Oral: Moist Mucosa, No Gingival or Mucosal Lesions/ Ulcerations Neck: Supple, No JVD, No Nodes, Trachea Midline Lungs: No rhonchi, No wheeze, No rales, Diminished, - - Symmetric expansion. No dullness to percussion. Cardiovascular: Regular rate, Regular Rhythm, Normal S1, Normal S2, No murmurs, No rub noted, No Gallop Abdomen: Bowel Sounds Present, Soft, Non Tender, Non-Distended Extremities: No clubbing, No cyanosis, No edema, Capillary Refill Less than 3 Seconds Skin: No rashes, No breakdown Musculoskeletal: No Tenderness to Palpation of Joints or Extremities Lymphatic: No Cervical, Supraclavicular, or Inguinal Adenopathy Neurological: Cranial nerves II-XII grossly intact, Neuro grossly intact, Motor Exam 5/5 strength throughout Psych/Mental Status: Alert and oriented to time, place, person, mood and affect Vital Signs Temp Pulse Resp BP Pulse Ox 36.9 C 74 16 135/83 H 96 06/20/18 07:09 06/20/18 07:09 06/20/18 07:09 06/20/18 07:09 06/20/18 07:10 Oxygen Delivery Method Room Air Weight: 99 kg Body Mass Index (BMI) 28.0 Microbiology Past 72 Hours 06/20/18 08:00 Legionella Antigen - Final Urine, Random 06/20/18 08:00 Streptococcus pneumoniae Antigen (M - Final Urine, Clean Catch Laboratory Tests Past 24 Hrs WBC 7.2 RBC 4.73 WBC RBC Hgb Hct MCV MCH MCHC RDW RDW Differential Plt Count MPV WBC Clinical Impression(s) from Imaging Studies Chest CTA 06/20/18 03:43 IMPRESSION: Small pulmonary emboli involving branches of the left lower lobe pulmonary artery. Left upper lobe cavitary lesion. Considerations include cavitating pneumonia, tuberculosis, rare fungal infections or less likely malignancy. Mediastinal lymphadenopathy. N.B. : The above information has been verbally conveyed by Timothy Jones MD to Dr. Brett MD, on 06/20/2018 05:30:28 (ET). Electronically Signed: Timothy Jones MD at 5:31 EST , Service support , Assessment/Plan All Active Problems Pulmonary embolism (Acute) Left leg DVT (Acute) Cavitary lesion of lung (Acute) Elevated BP without diagnosis of hypertension (Acute) RECOMMENDATIONS: 1. Continue with heparin drip 2. Arrange for CT-guided biopsy, tomorrow if possible 3. Walking oximetry prior to discharge 4. Await echocardiogram 5. Nicotine patches if requested 6. Outpatient complete PFT IMPRESSIONS: 1. Acute DVT/PE Patient was significant left lower extremity DVT and findings of acute pulmonary embolism. Patient was placed on Xarelto previously, but should be on heparin drip to facilitate interventions while hospitalized. Patient is currently doing well on room air. An echocardiogram has been ordered for evaluation of cor pulmonale. Patient will need a walking oximetry prior to discharge, but anticipate supplemental oxygen will not be required. Patient will require 3-6 months of anticoagulation at a minimum. Some concern for cavitary mass and embolism but this may be a paraneoplastic syndrome. 2. Left upper lobe cavitary mass Patient does have a cavitary left upper lobe mass. Given patient's concomitant PE, concern for malignancy is significant. Other possible etiologies would include an anaerobic infection such as Nocardia or actinomyces. Given size, biopsy would be recommended as patient does not report significant fever, leukocytosis or change in productive cough. 3. Probable COPD with active tobacco use Patient has an extensive history of smoking and emphysematous changes noted on CT scan of the chest. Patient will need an outpatient pulmonary function test for quantification and clarification of lung function. Patient is relatively asymptomatic at this time. Would not recommend steroid therapy. Bronchodilators would not be unreasonable. Code Visit Inpatient E AND M: [id number] Init Hosp L3 06/21/18 0537 <Electronically signed by Crescencio Young MD> Date Crescencio Young MD Cosigner Signature (if applicable): Date CC: No Primary Care Physician; Crescencio Young MD Signed PARTIAL THROMBOPLAST Collected: 06/21/2018 Status: F Source: [place] TIME 4:34 AM [facility] REPOSITORY TYPE CODE TESTS RESULT OUT OF REFERENCE UNITS RANGE LAB L300.4310 24.1-36.2 Seconds High PTT 56.2 Performed By: #### L300.4310 #### [facility] [address] [place], [address] BASIC METABOLIC Collected: 06/21/2018 Status: F Source: [place] PROFILE (BMP) 4:34 AM [facility] REPOSITORY TYPE CODE TESTS RESULT OUT OF RANGE REFERENCE UNITS LAB L501.0100 74-106 mg/dL Normal GLU 99 Result Comment: Please note revised GLUCOSE reference range effective 2017. LAB L501.1000 7-18 mg/dL Normal BUN 12 LAB L501.1100 0.70-1.30 mg/dL Normal CREAT,SERUM 1.02 Result Comment: The validity of the calculated GFR AND GFRAA in patients over 70 years has not been determined. Clinical correlation is essential. LAB L501.1110 >60 mL/min Normal EST GFR 83 Result Comment: Non- GFR Calc LAB L501.1115 >60 mL/min Normal EST GFR - AA 100 Result Comment: GFR Calc LAB L501.1255 ml/min Normal Estimated CRCL 102.97 LAB L501.1300 10-20 RATIO BUN/CRE Normal 11.8 LAB L501.2200 8.5-10 mg/dL .1 CA Normal 8.6 LAB L501.5300 136-14 mmol/L 5 NA Normal 140 LAB L501.5600 3.5-5. mmol/L 1 K Normal 4.1 LAB L501.5900 98-107 mmol/L CL Normal 106 LAB L501.6100 21.0-3 mmol/L 2.0 CO2 Normal 25.0 LAB L501.6200 5-15 GAP Normal 9 Performed By: #### L500.2500 #### [facility] [address] [place], [address] CBC-COMPLETE BLOOD CNT Collected: 06/21/2018 Status: F Source: [place] NO DIFF 4:34 AM [facility] REPOSITORY TYPE CODE TESTS RESULT OUT OF RANGE REFERENCE UNITS LAB L100.1000 4.4-11.0 K/mm3 Normal WBC 6.7 LAB L100.1200 4.6-6.2 M/mm3 Low RBC 4.54 LAB L100.1300 13.0-16.5 g/dl Normal HGB 13.1 LAB L100.1400 40-54 % Normal HCT 40.6 LAB L100.1500 80-94 fL Normal MCV 89.4 LAB L100.1600 27.0-32.0 pg Normal MCH 28.9 LAB L100.1700 32-36 g/gl Normal MCHC 32.3 LAB L100.1810 11.6-14.6 % Normal RDW CV 14.2 LAB L100.1820 35.1-43.9 fl High RDW SD 46.4 LAB L100.1900 150-450 K/mm3 Low PLT 112 LAB L100.2000 6.2-12.0 fl Normal MPV 10.3 Performed By: #### L100.0500 #### [facility] [address] [place], [place], [id number] Observed: 06/21/2018 Status: F Source: [place] ACID FAST BACT 12:00 AM [facility] CULT/SM REPOSITORY AFB Smear/Fluor TESTING PERFORMED AT [facility]. ORIGINAL REPORT ON FILE IN LAB CONTAINS ADDITIONAL TEST SITE INFORMATION. Smear, Acid Fast NO ACID-FAST BACILLI OBSERVED ON SMEAR. AFB Cult TESTING PERFORMED AT [facility]. ORIGINAL REPORT ON FILE IN LAB CONTAINS ADDITIONAL TEST SITE INFORMATION. Culture, Acid Fast NO ACID-FAST BACILLI ISOLATED AFTER 6 WEEKS. Performed By: #### M300.1000 #### [facility] [place], [address] Observed: 06/20/2018 Status: F Source: [place] CULTURE, SPUTUM 11:00 PM [facility] REPOSITORY Gram Stain Acceptable Specimen? Yes (<25 Epithelial cells per/lpf) Gram Stain 2+ White Blood Cells 1+ Epithelial cells 4+ Gram positive cocci 3+ Gram variable vishal Resp. Culture #2 No Streptococcus pneumoniae, beta-hemolytic Streptococcus or Staphylococcus aureus isolated. ORGANISM 1: Presumptive C albicans Amount Growth Rare ORGANISM 2: Mixed Bhavna Amount Growth 3+ Performed By: #### M100.0800 #### [facility] [address] [place], [place], [id number] PARTIAL THROMBOPLAST Collected: 06/20/2018 Status: F Source: [place] TIME 8:35 PM [facility] REPOSITORY TYPE CODE TESTS RESULT OUT OF REFERENCE UNITS RANGE LAB L300.4310 24.1-36.2 Seconds High PTT 46.1 Performed By: #### L300.4310 #### [facility] [address] [place] [address], [address] Observed: 06/20/2018 Status: F Source: [place] CULTURE, SPUTUM 4:08 PM [facility] REPOSITORY Gram Stain Acceptable Specimen? Yes (<25 Epithelial cells per/lpf) Gram Stain 2+ White Blood Cells 1+ Epithelial cells 4+ Gram positive rods 3+ Gram positive cocci Resp. Culture #2 No Haemophilus, Streptococcus pneumoniae, beta-hemolytic Streptococcus or Staphylococcus aureus isolated. ORGANISM 1: Presumptive C albicans Amount Growth Rare ORGANISM 2: Mixed Bhavna Amount Growth 3+ Performed By: #### M100.0800 #### [address], [id number] PARTIAL THROMBOPLAST Collected: 06/20/2018 Status: F Source: [place] TIME 2:38 PM [facility] REPOSITORY TYPE CODE TESTS RESULT OUT OF REFERENCE UNITS RANGE LAB L300.4310 24.1-36.2 Seconds High PTT 58.1 Performed By: #### L300.4310 #### [facility] [address] [place] [address], [address] STREP Observed: 06/20/2018 Status: F Source: [place] PNEUMONIAE ANTIG(UR,CSF) 8:00 AM [facility] REPOSITORY S pneumo Ag URINE INTERPRETATION Negative Urine Presumptive negative for pneumococcal pneumonia, suggesting no current or recent pneumococcal infection. Infection due to S pneumoniae cannot be ruled out since the antigen present in the sample may be below the detection limit of the test. Strep pneumo Test Negative URINE (See interpretation below) Performed By: #### M300.4600 #### [facility] [address] [place], [address] Observed: 06/20/2018 Status: F Source: [place] LEGIONELLA ANTIGEN 8:00 AM [facility] URINE REPOSITORY Legionella, UR Legionella Antigen result interpretation: Negative Presumptive negative for Legionella pneumophila serogroup 1 antigen in urine, suggesting no recent or current infection. Legionella Ag, Urine Negative (See interpretation below) Performed By: #### M300.4500 #### [facility] [address] [place], [address] MAGNESIUM Collected: 06/20/2018 Status: F Source: [place] 7:06 AM [facility] REPOSITORY TYPE CODE TESTS RESULT OUT OF RANGE REFERENCE UNITS LAB L501.5200 1.6-2.6 mg/dL Normal MG 1.9 Result Comment: Slight Hemolysis, Result may be falsely increased. Performed By: #### L501.5200 #### [facility] [address] [place], [place] [address]. [place], [address] PARTIAL THROMBOPLAST Collected: 06/20/2018 Status: F Source: [place] TIME 7:06 AM [facility] REPOSITORY TYPE CODE TESTS RESULT OUT OF RANGE REFERENCE UNITS LAB L300.4310 24.1-36.2 Seconds Normal PTT 36.1 Performed By: #### L300.4310 #### [facility] [address] [place], [address] BNP,B-TYPE NATRIURETIC Collected: 06/20/2018 Status: F Source: [place] PEPTIDE 7:06 AM [facility] REPOSITORY TYPE CODE TESTS RESULT OUT OF RANGE REFERENCE UNITS LAB L503.6620 0-100 pg/mL Normal B-TYPE 5.5 JULIAN PEP Performed By: #### L503.6620 #### [facility] [place], [address] MISCELLANEOUS LAB Collected: 06/20/2018 Status: F Source: [place] PROCEDURE 7:06 AM [facility] REPOSITORY Order Comment: Comments: #[id number] QuantiFERON -TB Gold Plus Test(s) Ordered: #[id number] QuantiFERON -TB Gold Plus TYPE CODE TESTS RESULT OUT OF RANGE REFERENCE UNITS LAB L801.1541 Normal [facility] LAB TEST Result Comment: TEST RESULT LIMITS QFT-TB Plus (Client Incubated) QuantiFERON Criteria The QuantiFERON-TB Gold Plus result is determined by subtracting the Nil value from either TB antigen (Ag) tube. The mitogen tube serves as a control for the test. QuantiFERON TB1 Ag Value 0.05 IU/mL QuantiFERON TB2 Ag Value 0.04 IU/mL QuantiFERON Nil Value 0.08 IU/mL QuantiFERON Mitogen Value >10.00 IU/mL QuantiFERON-TB Gold Plus Negative Negative The specimen received for QuantiFERON testing was incubated by the ordering institution. Specific procedures outlined in our Directory of Services and in the package insert for the QuantiFERON Gold (In Tube) test must be followed to enable for proper stimulation of cells for the production of interferon gamma. [facility]. ORIGINAL REPORT ON FILE IN LAB CONTAINS ADDITIONAL TEST SITE INFORMATION. Performed By: #### L801.1541 #### [facility] [address] [place], [address] Observed: 06/20/2018 Status: F Source: [place] RESPIRATORY PANEL 7:00 AM [facility] MOLECULAR REPOSITORY RP PANEL ADENOVIRUS Not Detected HUMAN METAPHNEUMO Not Detected INFLUENZA A Not Detected INFLUENZA A (SUBTYPE H1) Not Detected INFLUENZA A (SUBTYPE H3) Not Detected INFLUENZA B Not Detected PARAINFLUENZA 1 Not Detected PARAINFLUENZA 2 Not Detected PARAINFLUENZA 3 Not Detected PARAINFLUENZA 4 Not Detected RHINOVIRUS Not Detected RSV A Not Detected RSV B Not Detected NAAT METHOD Testing was performed using nucleic acid amplification Performed By: #### M100.638 #### [facility] [address] [place], [address] HISTORY AND PHYSICAL Observed: 06/20/2018 Status: F Source: [place] EXAM 6:01 AM [facility] REPOSITORY [facility] Medical Records Department [address] [place] [address] History and Physical 06/20/18 0535 MR#: [id number] Acct: [id number] Name: MARIBELL REIS . Rep #: [id number] : 1970 48 From: Mattie Serrano PCP: Care Physician, No Primary Status: REG ER Y Location: ED Problem List (1) Pulmonary embolism Status: Acute Qualifiers: Chronicity: acute (2) Left leg DVT Status: Acute Qualifiers: Affected thrombotic vein of extremity: unspecified vein of extremity Chronicity: acute Qualified Code(s): I82.402 - Acute embolism and thrombosis of unspecified deep veins of left lower extremity (3) Cavitary lesion of lung Status: Acute (4) Elevated BP without diagnosis of hypertension Status: Acute (5) Tobacco use Status: Chronic History of Present Illness Date of Admission: 06/20/18 Chief Complaint: Worsened LLE edema, pain, lightheadness, dizziness. 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 In the ED work-up included T 98.1, heart rate 90, BP 144/87, respiratory rate 16, 98% on room air, CBC with WBC 7.2, hemoglobin 13.8, platelet 126 without market shift, coags with PT 18.2, INR 1.5, BMP unremarkable, troponin <0.015, CTPA with small pulmonary emboli involving branches of the left lower lobe pulmonary artery, left upper lobe cavitary lesion concerning for possible pneumonia, tuberculosis, rare fungal infection with less likely malignancy as well as mediastinal lymphadenopathy. In the ED patient administered NS and initiated on heparin drip. Past Medical History Past Medical History (Chronic Problems): Chronic Problems Tobacco use (Chronic) Allergies No Known Allergies Allergy (Verified 06/20/18 02:22) Home Medications: Ambulatory Orders Medication Instructions Recorded Rivaroxaban [Xarelto] 15 mg PO BID #42 tab 06/18/18 Surgical History: no surgical history Psychiatric History: No pertinent psych hx Lives: Spouse/ Significant Other Smoking Status: Current every day smoker - 2 ppd since teen. Tobacco Use: Cigarettes Alcohol: None Drugs: None - *Family History Maternal History Items: Cancer Paternal History Items: Heart Disease, Hypertension Review of Systems Constitutional: Reports: Malaise, Weakness, Fatigue. Denies: Chills, Fever, Weight Change HEENT: Denies: Head Aches, Sinus Congestion, Sinus Drainage Cardiovascular: Reports: Light Headedness. Denies: Chest Pain, Palpitations Respiratory: Reports: Cough. Denies: Shortness of breath at rest, Sputum production Gastrointestinal: Denies: Abdominal Pain, Nausea, Vomiting Genitourinary: Denies: Dysuria Musculoskeletal: Reports: Leg Pain. Denies: Joint Pain, Joint Tenderness Skin: Denies: Rash, Wounds Neurological: Denies: Numbness, Tingling, Focal weakness Psychiatric: Denies: Anxiety, Depression, Homicidal Ideations, Suicidal Ideations Hematologic/ Lymphatic: Denies: Easy Bruising, Easy Bleeding VTE Information - Inpt Only VTE Present on Admission: No VTE Mechan Device Prophylaxis: SCD's VTE Pharm Prophylaxis ordered?: Yes Patient Problems: Active and Suspected Problems Pulmonary embolism (Acute) Left leg DVT (Acute) Cavitary lesion of lung (Acute) Elevated BP without diagnosis of hypertension (Acute) Subjective: Seated upright in the ED bed, fatigued appearing, ongoing LLE pain he notes. Objective: Physical Examination: General: awake, alert, oriented x 3 and cooperative, seated upright in the ED bed, notes discomfort to the LLE. Skin: normal color, turgor, no icterus, cyanosis. HEENT: AT/NC, EOMI, PERRLA, mildly dry MM, no carotid bruits or JVD noted. Lungs: Diminished BS BL, > bases, mild effort, no rales, ronchi or wheezing. Heart: regular rate and rhythm; no gallop, rub audible. Abdomen: soft, NTTP, ND, normal BS, no HSM. Extremities: no cyanosis, clubbing, LLE notable edema ankle to proximal thigh, TTP. Neurological: patient awake, alert, oriented x 3; cognitive function intact; pupils equally reactive to light and accomodation; cranial nerves II-XII grossly normal, moving all 4 extremities, no focal deficits, strength moderately globally decreased secondary to acute presentation. Psychiatric: affect appears fatigued, no acute evidence of depressive or anxiety feelings. 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 (1) Lightheadedness, Dizziness w/ recent acute LLE Extensive DVT secondary to now Acute Pulmonary Embolism: EKG without acute findings, CTPA with small pulmonary emboli involving branches of the left lower lobe pulmonary artery, left upper lobe cavitary lesion concerning for possible pneumonia, tuberculosis, rare fungal infection with less likely malignancy as well as mediastinal lymphadenopathy. Patient w/ notable driving history with infrequent breaks as possible risk for DVT/PE; however, findings on CTPA w/ cavitary lesion concerning. Will admit to PCU, maintain on cardiac telemetry. Will obtain ECHO, BNP. Will maintain on heparin drip. (2) Incidentally Noted left upper lobe cavitary lesion: CTPA w/ noted left upper lobe cavitary lesion concerning for possible pneumonia, tuberculosis, rare fungal infection with less likely malignancy as well as mediastinal lymphadenopathy, will consult Pulmonary medicine, QF gold, sputum, urine antigens, respiratory viral panel requested. No history of incarceration. Was in the and did travel [id number]. (3) Acute Intractable LLE Pain w/ Recent Extensive Acute LLE DVT Dx: Recent DVT US 06/18/18 w/ venous duplex results which were positive for DVT from femoral vein to posterior tibial vein, concern for worsened status, will admit to [facility], transition to heparin drip, maintain on fall precautions, frequent positioning, po/IV pain regimen, oral/IV PRN regimen, anti-emetics. If not improving or continued LE worsened edema may need to consider CTA LLE with runoff as well as vascular consultation. (4) Tobacco Abuse: Encouraged cessation, inpatient consultation per RT, NR if desired. (5) Elevated BP without HTN Dx: Elevated BP, possibly secondary to pain, continue to monitor, PRN hydralazine. (6) DVT Prophylaxis: SCD RLE, heparin drip as noted. Code Visit Inpatient E AND M: [id number] Init Hosp L3 06/20/18 0601 <Electronically signed by Mattie Serrano > Date Mattie Serrano Cosigner Signature: Date (if applicable) CC: No Primary Care Physician; Mattie Serrano Signed EMERGENCY DEPARTMENT Observed: 06/20/2018 Status: F Source: [place] SUMMARY 5:50 AM [facility] REPOSITORY [facility] Medical Records Department [address] [place] [address] Emergency Department Summary 06/20/18 0547 MR#: [id number] Acct: [id number] Name: MARIBELL REIS Sr. Rep #: [id number] : 1970 48 From: Herminio West MD PCP: Care Physician, No Primary Status: REG ER - ER Visit Summary Date of Service: 06/20/18 Chief Complaint: DVT History of Present Illness: The patient is a 48 M who presents with a DVT. I recently saw him in the emergency department one day ago. He was diagnosed with stents of DVT at that point from mid femoral vein to posterior tibial vein. We started him on Xarelto. He was given clear return precautions. He states that he has developed increased pain and swelling in the last day. He has been compliant with his Xarelto. His pain is really only when he ambulates however. When laying with his leg elevated he does not really have significant pain. Today however he also developed some lightheadedness. He states he had to sit down. No associated chest pain or shortness of breath. No vomiting. No abdominal pain. Denies any weakness or paresthesias. Physical Examination: Afebrile vitals unremarkable Resting comfortably no distress Moist mucous membranes Heart regular rate and rhythm Lungs clear Abdomen soft Patient does have edema of the left lower extremity only no edema on the right he has some mild erythema of the left lower leg his muscle compartments are soft there is a palpable cord in the calf he has a an easily palpable 2+ dorsalis pedis pulse with brisk capillary refill and normal sensation light touch Test Results: Labs notable for platelets 126, INR 1.5. Troponin negative. EKG shows sinus rhythm at a rate of 79. CTA of the chest shows small left lower lung pulmonary emboli as well as a cavitary lesion in the left upper lobe. Emergency Department Course and Treatment: Patient does have small pulmonary emboli. Given the extent of his DVT and increasing pain and swelling he will be admitted. After discussion with hospitalist we will transition to heparin which they will start on the floor. I also discussed the findings of the cavitary lesion with the patient. Plan is for pulmonary consult as an inpatient. He does not have infectious symptoms such as fevers cough shortness of breath. He does not have leukocytosis. He is a heavy smoker. 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 Treatment Plan: [] Disposition: Admit Impression: Pulmonary embolism Cavitary left upper lung lesion This note was generated with Dragon dictation software. It may contain incorrect words, spelling, and punctuation that were not noted in review of the chart prior to signing ED Disposition - Plan for ED Patient: Chief Complaint: Edema Referrals: Care Physician,No Primary [Primary Care Provider] - What to do if you have Problems For any increased pain, shortness of breath, bleeding, nausea or vomiting, chest pain, or any unexpected problems, contact your Primary Care Provider. Call [facility] ([phone]) or report to the closest Emergency Room. Call 911 if necessary. 06/20/18 0550 <Electronically signed by Herminio West MD> Date Herminio West MD Cosigner Signature (If Indicated): Date CC: No Primary Care Physician CBC W/DIFF, AUTOMATED Collected: 06/20/2018 Status: F Source: [place] 3:50 AM [facility] REPOSITORY TYPE CODE TESTS RESULT OUT OF RANGE REFERENCE UNITS LAB L100.1000 4.4-11.0 K/mm3 Normal WBC 7.2 LAB L100.1200 4.6-6.2 M/mm3 Normal RBC 4.73 LAB L100.1300 13.0-16.5 g/dl Normal HGB 13.8 LAB L100.1400 40-54 % Normal HCT 42.8 LAB L100.1500 80-94 fL Normal MCV 90.5 LAB L100.1600 27.0-32.0 pg Normal MCH 29.2 LAB L100.1700 32-36 g/gl Normal MCHC 32.2 LAB L100.1810 11.6-14.6 % Normal RDW CV 14.4 LAB L100.1820 35.1-43.9 fl High RDW SD 47.2 LAB L100.1900 150-450 K/mm3 Low PLT 126 LAB L100.2000 6.2-12.0 fl Normal MPV 10.6 LAB L100.2100 47-70 % Normal NEUT% 63.3 LAB L100.2200 19-41 % Normal LY% 23.1 LAB L100.2300 0-10 % High MONO% 11.1 LAB L100.2400 0-5 % Normal EO% 2.1 LAB L100.2500 0-1 % Normal BASO% 0.1 LAB L100.2550 0.0-0.9 % Normal IM GRAN % 0.300 Result Comment: IG% - Immature Granulocytes (promyelocytes, myelocytes and metamyelocytes) > 1% indicates that a LEFT SHIFT is Present. LAB L100.2620 2.0-7.7 X10 3/uL Normal Absolute Neut 4.6 LAB L100.2720 0.83-4.51 X10 3/ul Normal Absolute Lymph 1.66 Performed By: #### L100.0100 #### [facility] [address] [place], [place], [address] PROTHROMBIN TIME W/INR Collected: 06/20/2018 Status: F Source: [place] 3:50 AM [facility] REPOSITORY TYPE CODE TESTS RESULT OUT OF RANGE REFERENCE UNITS LAB L300.4150 11.7-14.9 SECONDS High PROTIME 18.2 LAB L300.4200 Normal INR 1.5 Performed By: #### L300.3900 #### [facility] [address] [place], [address] BASIC METABOLIC Collected: 06/20/2018 Status: F Source: [place] PROFILE (BMP) 3:50 AM [facility] REPOSITORY TYPE CODE TESTS RESULT OUT OF RANGE REFERENCE UNITS LAB L501.0100 74-106 mg/dL Normal GLU 102 Result Comment: Fasting Glucose result from 100 to 125 mg/dL suggests IMPAIRED HOMEOSTASIS per A.D.A. criteria. Please note revised GLUCOSE reference range effective 2017. LAB L501.1000 7-18 mg/dL Normal BUN 14 LAB L501.1100 0.70-1.30 mg/dL Normal CREAT,SERUM 1.09 Result Comment: The validity of the calculated GFR AND GFRAA in patients over 70 years has not been determined. Clinical correlation is essential. LAB L501.1110 >60 mL/min Normal EST GFR 77 Result Comment: Non- GFR Calc LAB L501.1115 >60 mL/min Normal EST GFR - AA 93 Result Comment: GFR Calc LAB L501.1255 ml/min Normal Estimated CRCL 93.66 LAB L501.1300 10-20 RATIO Normal BUN/CRE 12.8 LAB L501.2200 8.5-10 mg/dL Normal .1 CA 8.7 LAB L501.5300 136-14 mmol/L Normal 5 NA 141 LAB L501.5600 3.5-5. mmol/L Normal 1 K 4.1 LAB L501.5900 98-107 mmol/L Normal CL 107 LAB L501.6100 21.0-3 mmol/L Normal 2.0 CO2 26.0 LAB L501.6200 5-15 Normal GAP 8 Performed By: #### L500.2500, L501.4010 #### [facility] [address] [place], [place], [address] TROPONIN-I Collected: 06/20/2018 Status: F Source: [place] 3:50 AM [facility] REPOSITORY TYPE CODE TESTS RESULT OUT OF RANGE REFERENCE UNITS LAB L501.4010 <0.045 ng/mL Normal < 0.015 TROPONIN-I Result Comment: TROPONIN-I EXPECTED VALUES <0.045 Negative 0.045 - 0.590 Consistent with Cardiac Damage > OR = 0.600 Critical Value Not every elevated troponin is indicative of MA. These values should be used with clinical judgement in examining the patient's clinical picture for diagnosis. To establish a diagnosis of MA versus myocardial injury, there must be a demonstrated rise and/or fall in the troponin values, in addition to ischemic symptoms, EKG changes, new regional wall motion abnormality, and/or angiographical evidence. PLEASE NOTE: REFERENCE RANGES EDITED 17 Performed By: #### L500.2500, L501.4010 #### [facility] [address] [place], [place], [address] CTA CHEST W/WO Observed: 06/20/2018 Status: F Source: [place] CONTRAST 3:44 AM [facility] REPOSITORY [facility] Imaging Services [address] [place] [address] CTA Chest W/WO Contrast MR#: [id number] Acct: [id number] Name: MARIBELL REIS . Rep #: [id number] : 1970 M 48 From: Timothy Jones PCP: Care Physician, No Primary Status: REG ER Study: CTA Chest W/WO Contrast Date of Exam: 06/20/18 Exam# [id number] Ordering Dr: Herminio West MD STUDY: CTA CHEST REASON FOR EXAM: Male, 48 years old. Deep venous thrombus. RADIATION DOSAGE (If Supplied By Facility): CTDIvol = ( 12.34 ) mGy, DLP = ( 572.85 ) mGycm TECHNIQUE: The examination was performed with the intravenous administration of 100 ml of Isovue 370 contrast material. Post-processing of the angiographic images was performed, with multiplanar reformation and 3D reconstruction. Individualized dose optimization techniques were used for this CT. COMPARISON: Venous Doppler ultrasound June 18, 2018. FINDINGS: Normal enhancement of the main pulmonary artery and right and left pulmonary arteries. Filling defects involving branches of the left lower lobe pulmonary artery compatible with pulmonary emboli and axial image 100 series 2. Normal thoracic aorta and visualized great vessels. There is no demonstrated aortic dissection. Normal heart and pericardium. Enlarged AP window lymph nodes with the largest measuring 1.7 x 1.3 cm. Normal hilar regions. Normal visualized trachea and bronchi. The lungs are well expanded. 1.6 cm cavitary nodule posterior aspect of the left upper lobe. Normal chest wall structures. Normal osseous structures. Normal visualized upper abdomen. CT/CTA Chest W/WO Contrast IMPRESSION: Small pulmonary emboli involving branches of the left lower lobe pulmonary artery. Left upper lobe cavitary lesion. Considerations include cavitating pneumonia, tuberculosis, rare fungal infections or less likely malignancy. Mediastinal lymphadenopathy. N.B. : The above information has been verbally conveyed by Timothy Jones MD to Dr. Brett MD, on 06/20/2018 05:30:28 (ET). Electronically Signed: Timothy Jones MD at 5:31 EST , Service support , CC: No Primary Care Physician; Herminio West MD Manager Of Operations: Signed Observed: 06/20/2018 Status: F Source: [place] ACID FAST BACT 12:00 AM [facility] CULT/SM REPOSITORY AFB Smear/Fluor TESTING PERFORMED AT [facility]. ORIGINAL REPORT ON FILE IN LAB CONTAINS ADDITIONAL TEST SITE INFORMATION. Smear, Acid Fast Acid Fast Smear from Concentrated Specimen :Negative AFB Cult TESTING PERFORMED AT [facility]. ORIGINAL REPORT ON FILE IN LAB CONTAINS ADDITIONAL TEST SITE INFORMATION. Culture, Acid Fast NO ACID-FAST BACILLI ISOLATED AFTER 6 WEEKS. Performed By: #### M300.1000 #### [facility] [address], [address] Observed: 06/20/2018 Status: F Source: [place] ACID FAST BACT 12:00 [facility] REPOSIT[facility]. ORIGINAL REPORT ON FILE IN LAB CONTAINS ADDITIONAL TEST SITE INFORMATION. Smear, Acid Fast NO ACID-FAST BACILLI OBSERVED ON SMEAR. AFB Cult [facility]. ORIGINAL REPORT ON FILE IN LAB CONTAINS ADDITIONAL TEST SITE INFORMATION. Culture, Acid Fast NO ACID-FAST BACILLI ISOLATED AFTER 6 WEEKS. Performed By: #### M300.1000 #### [facility] [address] [place], [address] DISCHARGE INSTRUCTION Observed: 06/18/2018 Status: F Source: [place] 11:57 PM [facility] REPOSITORY [facility] Medical Records Department [address] [place] [address] Discharge Instruction 06/18/18 2356 MR#: [id number] Acct: [id number] Name: MARIBELL REIS . Rep #: [id number] : 1970 48 From: Herminio West MD PCP: Care Physician, No Primary Status: REG ER ED Disposition - Plan for ED Patient: Chief Complaint: Lower Extremity Injury Instructions: ED DVT Prescriptions: Rivaroxaban [Xarelto] 15 mg PO BID #42 tab Referrals: Care Physician,No Primary [Primary Care Provider] - Tomas Mendez MD [STAFF PHYSICIAN] - What to do if you have Problems For any increased pain, shortness of breath, bleeding, nausea or vomiting, chest pain, or any unexpected problems, contact your Primary Care Provider. Call [facility] ([phone]) or report to the closest Emergency Room. Call 911 if necessary. 06/18/18 5887 <Electronically signed by Herminio West MD> Date Herminio West MD Cosigner Signature (If Indicated): Date CC: No Primary Care Physician EMERGENCY DEPARTMENT Observed: 06/18/2018 Status: F Source: [place] SUMMARY 11:56 PM [facility] REPOSITORY [facility] Medical Records Department [address] [facility] [place] [address] Emergency Department Summary 06/18/18 2352 MR#: [id number] Acct: [id number] Name: CHATOMARIBELL Qi . Rep #: [id number] : 1970 48 From: Herminio West MD PCP: Care Physician, No Primary Status: REG ER - ER Visit Summary Date of Service: 06/18/18 Chief Complaint: Left leg pain and swelling History of Present Illness: The patient is a 48 M who presents with left leg pain and swelling. It began 3 days ago. He had a history of similar symptoms 2 months ago and was diagnosed with superficial thrombosis but no DVT. He states that today his swelling and pain were increased. He describes it as moderate in severity. He denies any chest pain shortness of breath lightheadedness or dizziness. He frequently travels for work and drives often. He states that recently in a 12-hour day he was only out of the vehicle for about an hour and a half. He is also a heavy smoker. No prior history of DVT pulmonary embolism no known cancer no known coagulopathies. He was initially seen at an outside emergency department he did not have ultrasound available at the time so they contacted us and the patient was sent here for ultrasound. They did draw blood work prior to sending the patient. Physical Examination: Afebrile heart rate 102 vitals otherwise normal Moist mucous membranes Heart regular rate and rhythm Lungs clear Abdomen soft Left lower extremity edema and mild erythema he has tenderness on palpation in the calf he has an easily palpable dorsalis pedis pulse brisk capillary refill normal sensation light touch normal motor function Test Results: Labs were faxed to us from [facility]. BMP notable for sodium 132, glucose 189. CBC notable for hemoglobin 13.6. Platelets are 113. INR normal at 1.0. procedures tech called me with venous duplex results which were positive for DVT from femoral vein to posterior tibial vein. Emergency Department Course and Treatment: Patient does not have signs or symptoms to suggest pulmonary embolism. On exam he does not have phlegmasia cerulea dolens or phlegmasia alba dolens. We will start patient on Xarelto. He was given his first dose here. He was given clear signs and symptoms to monitor for and signs and symptoms which should prompt immediate return to the emergency department for reevaluation. All questions answered bedside. Patient and family agreeable to plan. Patient does not have a primary care physician. He was referred to Dr. Mendez who is next on the [facility] PCP referral list. Treatment Plan: [] Disposition: Discharge Impression: Left lower extremity DVT This note was generated with [employer] dictation software. It may contain incorrect words, spelling, and punctuation that were not noted in review of the chart prior to signing ED Disposition - Plan for ED Patient: Chief Complaint: Lower Extremity Injury Referrals: Care Physician,No Primary [Primary Care Provider] - What to do if you have Problems For any increased pain, shortness of breath, bleeding, nausea or vomiting, chest pain, or any unexpected problems, contact your Primary Care Provider. Call [facility] ([phone]) or report to the closest Emergency Room. Call 911 if necessary. 06/18/18 7285 <Electronically signed by Herminio West MD> Date Herminio West MD Cosigner Signature (If Indicated): Date CC: No Primary Care Physician VENOUS DUPLEX Observed: 06/18/2018 Status: F Source: [place] IMAG/TANVIR EXTREM 10:55 PM [facility] REPOSITORY [facility] Imaging Services [address] [place] [address] Venous Duplex Imag/Tanvir Extrem MR#: [id number] Acct: [id number] Name: MARIBELL REIS . Rep #: [id number] : 1970 M 48 From: Torres Laguna MD PCP: Care Physician, No Primary Status: REG ER Study: Venous Duplex Imag/Tanvir Extrem Date of Exam: 06/18/18 Exam# [id number] Ordering Dr: Alton Gill PQuoc STUDY: VENOUS DOPPLER ULTRASOUND - BILATERAL LOWER EXTREMITIES REASON FOR EXAM: Male, 48 years old. Left lower leg swelling and redness TECHNIQUE: Ultrasound evaluation of the deep vein system to include garduno-scale imaging and compression was performed. Garduno-scale imaging and Doppler sonographic evaluation, including duplex spectral analysis and qualitative color flow sonography, was performed. COMPARISON: None. FINDINGS: RIGHT LEG Common Femoral Vein: Normal compression, spontaneity and augmentation. Normal color Doppler. Common Femoral Vein/Greater Saphenous Junction: Normal compression, spontaneity and augmentation. Normal color Doppler. Deep Femoral Vein: Normal compression, spontaneity and augmentation. Normal color Doppler. Femoral Proximal: Normal compression, spontaneity and augmentation. Normal color Doppler. Femoral Middle: Normal compression, spontaneity and augmentation. Normal color Doppler. Femoral Distal: Normal compression, spontaneity and augmentation. Normal color Doppler. Popliteal Vein: Normal compression, spontaneity and augmentation. Normal color Doppler. Posterior Tibial Vein: Normal compression, spontaneity and augmentation. Normal color Doppler. Peroneal Vein: Normal compression, spontaneity and augmentation. Normal color Doppler. LEFT LEG Common Femoral Vein: Normal compression, spontaneity and augmentation. Normal color Doppler. Common Femoral Vein/Greater Saphenous Junction: Normal compression, spontaneity and augmentation. Normal color Doppler. Deep Femoral Vein: Normal compression, spontaneity and augmentation. Normal color Doppler. Femoral Proximal: Normal compression, spontaneity and augmentation. Normal color Doppler. Femoral Middle: No compression, spontaneity and augmentation. No color Doppler. Femoral Distal: No compression, spontaneity and augmentation. No color Doppler. Popliteal Vein: No compression, spontaneity and augmentation. No color Doppler. Posterior Tibial Vein: No compression, spontaneity and augmentation. No color Doppler. Peroneal Vein: Normal compression, spontaneity and augmentation. Normal color Doppler. Lesser saphenous venous thrombosis. US/Venous Duplex Imag/Tanvir Extrem IMPRESSION: DVT posterior tibial to the mid femoral vein and lesser saphenous vein Electronically Signed: Torres Laguna MD at 23:44 EST , Service support , CC: No Primary Care Physician; ED PHYSICIAN PROVIDER Manager Of Operations: Signed ED NOTE Observed: 06/18/2018 Status: COMPLETED Source: [facility] [place] 10:15 PM [facility] REPOSITORY HNO ID: [id number] Author: Nataly HallRn) KARLEE Andrade Service: Emergency Medicine Author Type: Registered Nurse Type: ED Notes Filed: 06/18/2018 10:23 PM Note Text: Call to [place] ED for nurse report. Will fax lab results when available to [phone] ED PROV NOTE Observed: 06/18/2018 Status: COMPLETED Source: [place] 10:14 PM [facility] REPOSITORY HNO ID: [id number] Author: Hilario Paul DO Service: Emergency Medicine Author Type: Physician Type: ED Provider Notes Filed: 06/18/2018 10:26 PM Note Text: ED Provider Note Patient Name: Maribell Reis SR SERVICE DATE: 06/18/18 History Patient presents with: Leg Pain Maribell Reis SR is a 48 year old male with history of no chronic medical problems who presents with left lower leg pain spontaneously. - Symptoms began 1 days prior to arrival. Onset was gradual and symptoms are worsening. - Severity: moderate - Pain is described as dull in the muscle. - Timing: constant - Pain is exacerbated by nothing. - Pain is not exacerbated by anything. - Symptoms are associated with leg swelling and leg redness. - Symptoms are not associated with chest pain, fever, palpitations, shortness of breath, tingling, wound and syncope. - Improved by nothing. - Not improved by anything. Patient states he has had left leg pain, swelling, redness since yesterday. No fever or trauma. He has been in the car more over the past two days driving around. He has no history of DVT. He has no chest pain, no shortness of breath, no palpitations or syncope. He states he has no history of bleeding or clotting disorders. He does smoke. PAST MEDICAL HISTORY Diagnosis Date - Lumbago - Other dyschromia 02/08/2008 Done on L arm in : not done professionally - Tobacco use disorder 02/08/2008 PAST SURGICAL HISTORY Procedure Laterality Date - NONE FAMILY HISTORY Problem Relation Age of Onset - Coronary Artery Disease Father MA age 56, stents - Hypertension Father - None Mother - Cancer Maternal Aunt lymphoma Social History Social History Main Topics - Smoking status: Current Every Day Smoker Packs/day: 2.00 Years: 25.00 Types: Cigarettes - Smokeless tobacco: Never Used Comment: since age of 18 yrs old - Alcohol use No - Drug use: No - Sexual activity: Not on file ALLERGIES No Known Allergies Review of Systems Constitutional: Negative for chills and fever. Respiratory: Negative for cough and shortness of breath. Cardiovascular: Positive for leg swelling (left leg). Negative for chest pain and palpitations. Gastrointestinal: Negative for nausea and vomiting. Genitourinary: Negative for flank pain. Musculoskeletal: Positive for myalgias (left leg). Negative for arthralgias and back pain. Skin: Positive for color change (left leg redness). Negative for pallor, rash and wound. Allergic/Immunologic: Negative for immunocompromised state. Neurological: Negative for syncope, weakness and numbness. Psychiatric/Behavioral: Negative for agitation and confusion. Physical Exam BP 139/76 Pulse 108 Temp (Src) 97.5 (Temporal Artery) Resp 16 Ht 6' 2 (1.88m) Wt 220 lb (99.8kg) SpO2 100% BMI 28.23 kg/(m2). Physical Exam Constitutional: He is oriented to person, place, and time. He appears well-developed and well-nourished. No distress. HENT: Head: Normocephalic and atraumatic. Eyes: Conjunctivae are normal. Neck: Normal range of motion. No JVD present. Cardiovascular: Normal rate, regular rhythm and intact distal pulses. Pulmonary/Chest: Effort normal and breath sounds normal. No stridor. No respiratory distress. Abdominal: Soft. He exhibits no distension. There is no tenderness. Musculoskeletal: Right lower leg: He exhibits no tenderness, no bony tenderness, no swelling, no edema, no deformity and no laceration. Left lower leg: He exhibits tenderness and swelling. He exhibits no bony tenderness, no deformity and no laceration. Legs: Generalized swelling, blanching erythema to left lower leg. The leg is warm, pulses intact. There is tenderness to left calf/leg Right leg there is no swelling or redness or tenderness. Neurological: He is alert and oriented to person, place, and time. He has normal strength. No sensory deficit. GCS eye subscore is 4. GCS verbal subscore is 5. GCS motor subscore is 6. Skin: Skin is warm and dry. Capillary refill takes less than 2 seconds. He is not diaphoretic. Psychiatric: He has a normal mood and affect. His behavior is normal. Nursing note and vitals reviewed. Diagnostic Testing ED Labs Ordered and Reviewed COMPREHENSIVE METABOLIC PANEL (AK,AV,EU,FV,HL,YULI,MM,SP) CBC + AUTO DIFF (AK,AV,EU,FV,HL,YULI,MM,SP) PROTHROMBIN TIME / PT (AK,AV,EU,FV,HL,YULI,MM,SP) MDRD GFR Procedures ED Course / Clinical Impression MDM / Disposition / Plan Patient well appearing. Heart rate on vitals is 108, on my exam he is not tachycardic. He denies any chest symptoms. NO chest pain, no shortness of breath, no palpitations or syncope. Labs drawn, I discussed right away with the patient and that we do not have US and he needs an US to evaluate for DVT in his left leg and we would need to transfer him to an ED that has US capability. The patient prefers [place], as he lives in [place]. I spoke with Dr. Mcadams, [place] ED physician, and she is accepting to [place] ED for US. Labs were drawn here and will be faxed to [place] when they are done. Patient and are agreeable to plan and is going to drive him directly there as he has to be there before 11 pm when US leaves. Disposition The patient was transferred. Transferred to [place] - driving him directly to [place]. Condition at disposition is stable. SIGNATURE: Hilario Paul, DO Hilario Paul DO 06/18/18 2226 ED NOTE Observed: 06/18/2018 Status: COMPLETED Source: [place] 10:12 PM [facility] REPOSITORY HNO ID: [id number] Author: Nataly (Rn) KARLEE Andrade Service: Emergency Medicine Author Type: Registered Nurse Type: ED Notes Filed: 06/18/2018 10:22 PM Note Text: Pt given copy of chart, face sheet. Pt aware transfer to [place] ED for ultrasound. Advised to go directly to [place] ED for the goal of triage and order placed before 2300. Pt and spouse verb und, agreeable to plan. Pt is AANDO, wdp, resps even and unlabored. Pt does not appear to be in any distress. Ambulates from ED. ED NOTE Observed: 06/18/2018 Status: COMPLETED Source: [place] 10:04 PM [facility] REPOSITORY HNO ID: [id number] Author: Nataly (Rn) KARLEE Andrade Service: Emergency Medicine Author Type: Registered Nurse Type: ED Notes Filed: 06/18/2018 10:09 PM Note Text: Call back from Dr Mcadams at [place] ER. Pt is accepted. Requests basic labs drawn. sts order need to be put in at [place] before 2300 for ultrasound to be done tonight. Dr Velazquez advised. HEMOGRAM/DIFF Collected: 06/18/2018 Status: F Source: [facility] 10:00 PM HEALTH SYSTEM REPOSITORY TYPE CODE TESTS RESULT OUT OF REFERENCE UNITS RANGE LAB LWBC(LOINC 4.8-10.8 thou/cmm ) WBC 8.8 LAB LRBC(LOINC 4.60-6.20 mil/cmm ) RBC 4.78 LAB LHGB(LOINC 14.0-18.0 g/dL ) Low Hgb 13.6 LAB LHCT(LOINC 42.0-52.0 % ) Hct 42.6 LAB LMCV(LOINC 80.0-94.0 fl ) MCV 89.1 LAB LMCH(LOINC 27.0-31.0 pg ) MCH 28.5 LAB LMCHC(LOIN 32.0-36.0 % C) Low MCHC 31.9 LAB LRDW(LOINC 11.5-15.9 % ) RDW 14.4 LAB LPLT(LOINC 150-400 thou/cmm ) Low Platelet 113 LAB LMPV(LOINC 7.1-10.5 fl ) MPV 10.4 LAB LSEGT(LOIN % C) Seg Neutrophil 67.9 LAB LLYMP(LOIN % C) Lymphocyte 21.7 LAB LMNO(LOINC % ) Monocyte 7.8 LAB SAI(LOINC % ) Eosinophil 2.4 LAB LBASO(LOIN % C) Basophil 0.2 LAB LSEGN(LOIN 3.00-5.67 thou/cmm C) Abs. High Neut (ANC) 5.97 LAB LLYMN(LOIN 1.50-3.65 thou/cmm C) Abs. Lymph 1.91 LAB LMONN(LOIN 0.20-1.00 thou/cmm C) Abs. Anderson 0.69 LAB LEOSN(LOIN 0.00-0.41 thou/cmm C) Abs. Eosin 0.21 LAB LBASN(LOIN 0.00-0.08 thou/cmm C) Abs. Baso 0.02 Performed By: #### LCBCD #### [place] [address] PROTIME Collected: 06/18/2018 Status: F Source: [facility] 10:00 HEALTH SYSTEM REPOSITORY TYPE CODE TESTS RESULT OUT OF REFERENCE UNITS RANGE LAB LPTI(LOINC 9.7-13.0 sec ) Prothrombin Time 10.2 Result Comment: . LAB LINR(LOINC) 0.90-1.30 INR 1.00 Result Comment: Note: Reference Range Change Vitamin K Antagonist (VKA) Therapeutic Range: INR 2 to 3 (Target INR of 2.5) Note: For patients treated with VKA drugs, such as warfarin, the [place] 2012 Guideline recommends a therapeutic INR range of 2 to 3 (target INR of 2.5). This recommendation includes high-risk patients with antiphospholipid syndrome with previous arterial or venous thromboembolism, current-generation mechanical or bioprosthetic aortic heart valve replacement. VKA Therapeutic Range for some Mechanical Valve Replacement: INR 2.5 to 3.5 (Target INR of 3) Note: Patients with mechanical aortic valve replacement and additional risk factors for thromboembolic events (atrial fibrillation, previous thromboembolism, LV dysfunction, hypercoagulable conditions) or an older generation mechanical AVR (i.e., ball in-Cage) or any mechanical MVR should have a INR therapeutic range of 2.5 to 3.5 target INR of 3). Gio GH, et al. Chest 2012; 141:7S-47S Cm OLMSTEAD et al. JACC 2017; 70: 252-289 Performed By: #### LPT #### [facility] [address] [place] [address] COMPREHENSIVE PANEL Collected: 06/18/2018 Status: F Source: [facility] 10:00 PM HEALTH SYSTEM REPOSITORY TYPE CODE TESTS RESULT OUT OF REFERENCE UNITS RANGE LAB LADDERMAN(LOINC) 136-145 mEq/L Low Sodium Blood 132 LAB LK(LOINC) 3.5-5.1 mEq/L Potassium Blood 3.9 LAB LCL(LOINC) 98-107 mEq/L Chloride Blood 104 LAB LCO2(LOINC 21-32 mEq/L ) CO2 Blood 26 LAB LGLU(LOINC 70-99 mg/dL ) Glucose High Blood 189 LAB LBUN(LOINC 7-25 mg/dL ) BUN Blood 16 LAB LCREA(LOIN 0.67-1.17 mg/dL C) Creatinine Blood 0.99 LAB LCA(LOINC) 8.5-10.1 mg/dL Calcium Blood 9.3 LAB LALB(LOINC 3.4-5.0 g/dL ) Albumin Blood 3.6 LAB LTP(LOINC) 6.4-8.2 g/dL Total Protein 7.7 LAB LAST(LOINC 15-37 U/L ) AST-SGOT Blood 18 LAB LALT(LOINC 14-63 U/L ) ALT-SGPT Blood 43 LAB LALKP(LOIN 46-116 U/L C) Alk Phosphatase 105 LAB LBILT(LOIN 0.2-1.0 mg/dL C) Total Bilirubin 0.3 LAB LANGP(LOIN 8-20 C) Low Anion Gap 6 LAB LBNCR(LOIN 10-20 C) BUN/Creatinine 16 Ratio Performed By: #### LP14 #### [facility] [address] [place] [address] MDRD EGFR Collected: 06/18/2018 Status: F Source: [facility] 10:00 PM HEALTH SYSTEM REPOSITORY TYPE CODE TESTS RESULT OUT OF RANGE REFERENCE UNITS LAB LGFRF(LOINC >60mL/min/1.73m ) 2 eGFR >60 Result Comment: If the patient is , multiply the result by 1.210. Performed By: #### LGFR #### [facility] [address] [place] [address] ED NOTE Observed: 06/18/2018 Status: COMPLETED Source: [place] 10:00 PM [facility] REPOSITORY HNO ID: [id number] Author: Nataly (Rn) KARLEE Andrade Service: Emergency Medicine Author Type: Registered Nurse Type: ED Notes Filed: 06/18/2018 10:08 PM Note Text: Call to [place] ER (pt request). Dr Velazquez speaking with Dr Mcadams. Will call back if ultrasound is available [facility] ED NOTE Observed: 03/02/2018 Status: COMPLETED Source: [place] 9:04 AM [facility] REPOSITORY HNO ID: [id number] Author: Sabrina HallRn) KARLEE Harris Service: Emergency Medicine Author Type: Registered Nurse Type: ED Notes Filed: 03/15/2018 7:22 AM Note Text: Chart accessed by this RN for auditing purposes only. 03/15/18 at 0721. ED NOTE Observed: 03/02/2018 Status: COMPLETED Source: [place] 9:02 AM [facility] REPOSITORY HNO ID: [id number] Author: Laurita HallRn) KARLEE Summers Service: Emergency Medicine Author Type: Registered Nurse Type: ED Notes Filed: 03/02/2018 9:02 AM Note Text: Pt given discharge instructions, pt questions answered and pt denies any further questions at time of discharge. Pt ambulates out of dept with a steady gait. ED PROV NOTE Observed: 03/02/2018 Status: COMPLETED Source: [place] 9:02 AM [facility] REPOSITORY HNO ID: [id number] Author: Hilario Paul DO Service: Emergency Medicine Author Type: Physician Type: ED Provider Notes Filed: 03/02/2018 9:03 AM Note Text: ED Provider Note Patient Name: Maribell Reis SERVICE DATE: 03/02/18 History Patient presents with: Pain, Extremity Patient signed out to me pending US result PAST MEDICAL HISTORY Diagnosis Date - Lumbago - Other dyschromia 02/08/2008 Done on L arm in : not done professionally - Tobacco use disorder 02/08/2008 PAST SURGICAL HISTORY Procedure Laterality Date - NONE FAMILY HISTORY Problem Relation Age of Onset - Coronary Artery Disease Father MA age 56, stents - Hypertension Father - None Mother - Cancer Maternal Aunt lymphoma Social History Social History Main Topics - Smoking status: Current Every Day Smoker Packs/day: 2.00 Years: 25.00 Types: Cigarettes - Smokeless tobacco: Never Used - Alcohol use No - Drug use: No - Sexual activity: Not on file ALLERGIES No Known Allergies Review of Systems Physical Exam BP 118/85 Pulse 82 Temp (Src) 98.2 (Tympanic) Resp 18 Ht 6' 3 (1.91m) Wt 220 lb (99.8kg) SpO2 96% BMI 27.50 kg/(m2). Physical Exam Diagnostic Testing ED Labs Ordered and Reviewed COMPREHENSIVE METABOLIC PANEL (AK,AV,EU,FV,HL,YULI,MM,SP) - Abnormal; Notable for the following: Result Value Ref Range Glucose 124 (*) 70 - 99 mg/dL BUN/CREATININE RATIO 21 (*) 10 - 20 All other components within normal limits CBC + AUTO DIFF (AK,AV,EU,FV,HL,YULI,MM,SP) - Abnormal; Notable for the following: Platelet Count 132 (*) 150 - 400 thou/cmm All other components within normal limits D-DIMER (AK,AV,EU,FV,HL,YULI,MM,SP) MDRD GFR Procedures ED Course / Clinical Impression Clinical Impressions as of Mar 02 902 Thrombophlebitis of superficial veins of left lower extremity MDM / Disposition / Plan Ultrasound shows NO DVT, it does show superficial thrombophlebitis. Time: 855 am I spoke with the patient and about US result. Will treat symptomatically at this time. A referral to a primary physician given with d/c instructions. Return to the ED for new/worsening symptoms. Disposition The patient was discharged. Counseled patient and significant other regarding radiology results and suspected diagnosis. As well as the need for follow-up. Discharged home with verbal and written instructions. They were instructed to return as needed for persistent or worsening symptoms or any new concerns. Condition at disposition is stable. SIGNATURE: Hilario Paul, DO Hilario Paul DO 03/02/18 0903 ED NOTE Observed: 03/02/2018 Status: COMPLETED Source: [place] 9:00 AM [facility] REPOSITORY HNO ID: [id number] Author: Laurita HallRn) KARLEE Summers Service: Emergency Medicine Author Type: Registered Nurse Type: ED Notes Filed: 03/02/2018 9:01 AM Note Text: Dr Velazquez speaking with pt regarding results of testing and plan of care US DVT LOWER LEFT Observed: 03/02/2018 Status: F Source: [facility] 8:05 AM [facility] REPOSITORY Performed at [facility] APPROVED BY: Andriy Long MD EXAM TITLE: VENOUS DUPLEX ULTRASOUND OF THE LEFT LOWER EXTREMITY DATE: 03/02/2018 07:33 COMPARISON: None. CLINICAL INDICATION/HISTORY: Left-sided lower extremity swelling and pain. TECHNIQUE: Scanning, both grayscale with compression and Doppler imaging with spectral analysis and with augmentation maneuver, was performed by the technologist FINDINGS: The deep venous structures of the lower extremity including the external iliac vein, common femoral vein, femoral vein, popliteal vein, and visualized deep calf veins demonstrate normal compressibility and waveform. Color flow imaging demonstrates good opacification of the vessels. However, there is superficial thrombophlebitis involving a superficial vein in the left posterior calf region. IMPRESSION: Negative for DVT of the left lower extremity. Findings compatible with superficial thrombophlebitis involving a superficial vein within the posterior calf region. ED NOTE Observed: 03/02/2018 Status: COMPLETED Source: [place] 7:15 AM [facility] REPOSITORY HNO ID: [id number] Author: Laurita HallRn) KARLEE Summers Service: Emergency Medicine Author Type: Registered Nurse Type: ED Notes Filed: 03/02/2018 7:40 AM Note Text: Pt resting in cart, spouse at bedside ED NOTE Observed: 03/02/2018 Status: COMPLETED Source: [place] 7:05 AM [facility] REPOSITORY HNO ID: [id number] Author: Laurita HallRn) KARLEE Summers Service: Emergency Medicine Author Type: Registered Nurse Type: ED Notes Filed: 03/02/2018 7:39 AM Note Text: Report received, assumed care of pt ED NOTE Observed: 03/02/2018 Status: COMPLETED Source: [place] 7:01 AM [facility] REPOSITORY HNO ID: [id number] Author: Marcelino HallRn) KARLEE Cedeño Service: Emergency Medicine Author Type: Registered Nurse Type: ED Notes Filed: 03/02/2018 7:01 AM Note Text: Report to ER day shift staff development manager-Laurita Harris. ED NOTE Observed: 03/02/2018 Status: COMPLETED Source: [place] 5:48 AM [facility] REPOSITORY HNO ID: [id number] Author: Marcelino HallRn) KARLEE Cedeño Service: Emergency Medicine Author Type: Registered Nurse Type: ED Notes Filed: 03/02/2018 5:50 AM Note Text: Patient is aware that an US has been ordered. Aware that US optical fabrication technician comes in at 0730 hrs. Watching TV with spouse at bedside. Call light in reach. No needs at this time. Radiology also aware of orders. HEMOGRAM/DIFF Collected: 03/02/2018 Status: F Source: [facility] 5:40 AM HEALTH SYSTEM REPOSITORY TYPE CODE TESTS RESULT OUT OF REFERENCE UNITS RANGE LAB LWBC(LOINC 4.8-10.8 thou/cmm ) WBC 6.9 LAB LRBC(LOINC 4.60-6.20 mil/cmm ) RBC 4.88 LAB LHGB(LOINC 14.0-18.0 g/dL ) Hgb 14.5 LAB LHCT(LOINC 42.0-52.0 % ) Hct 44.7 LAB LMCV(LOINC 80.0-94.0 fl ) MCV 91.6 LAB LMCH(LOINC 27.0-31.0 pg ) MCH 29.7 LAB LMCHC(LOIN 32.0-36.0 % C) MCHC 32.4 LAB LRDW(LOINC 11.5-15.9 % ) RDW 14.1 LAB LPLT(LOINC 150-400 thou/cmm ) Low Platelet 132 LAB LMPV(LOINC 7.1-10.5 fl ) MPV 10.3 LAB LSEGT(LOIN % C) Seg Neutrophil 62.3 LAB LLYMP(LOIN % C) Lymphocyte 25.7 LAB LMNO(LOINC % ) Monocyte 9.7 LAB SAI(LOINC % ) Eosinophil 2.2 LAB LBASO(LOIN % C) Basophil 0.1 LAB LSEGN(LOIN 3.00-5.67 thou/cmm C) Abs. Neut (ANC) 4.30 LAB LLYMN(LOIN 1.50-3.65 thou/cmm C) Abs. Lymph 1.77 LAB LMONN(LOIN 0.20-1.00 thou/cmm C) Abs. Anderson 0.67 LAB LEOSN(LOIN 0.00-0.41 thou/cmm C) Abs. Eosin 0.15 LAB LBASN(LOIN 0.00-0.08 thou/cmm C) Abs. Baso 0.01 Performed By: #### LCBCD #### [facility] [address] [place] [address] COMPREHENSIVE PANEL Collected: 03/02/2018 Status: F Source: [facility] 5:40 AM HEALTH SYSTEM REPOSITORY TYPE CODE TESTS RESULT OUT OF REFERENCE UNITS RANGE LAB LADDERMAN(LOINC) 136-145 mEq/L Sodium Blood 138 LAB LK(LOINC) 3.5-5.1 mEq/L Potassium Blood 4.1 LAB LCL(LOINC) 98-107 mEq/L Chloride Blood 107 LAB LCO2(LOINC 21-32 mEq/L ) CO2 Blood 24 LAB LGLU(LOINC 70-99 mg/dL ) Glucose High Blood 124 LAB LBUN(LOINC 7-25 mg/dL ) BUN Blood 24 LAB LCREA(LOIN 0.67-1.17 mg/dL C) Creatinine Blood 1.14 LAB LCA(LOINC) 8.5-10.1 mg/dL Calcium Blood 8.7 LAB LALB(LOINC 3.4-5.0 g/dL ) Albumin Blood 3.7 LAB LTP(LOINC) 6.4-8.2 g/dL Total Protein 7.3 LAB LAST(LOINC 15-37 U/L ) AST-SGOT Blood 19 LAB LALT(LOINC 14-63 U/L ) ALT-SGPT Blood 38 LAB LALKP(LOIN 46-116 U/L C) Alk Phosphatase 89 LAB LBILT(LOIN 0.2-1.0 mg/dL C) Total Bilirubin 0.3 LAB LANGP(LOIN 8-20 C) Anion Gap 11 LAB LBNCR(LOIN 10-20 C) High BUN/Creatinine 21 Ratio Performed By: #### LP14 #### [facility] [address] [place] [address] MDRD EGFR Collected: 03/02/2018 Status: F Source: [facility] 5:40 AM HEALTH SYSTEM REPOSITORY TYPE CODE TESTS RESULT OUT OF RANGE REFERENCE UNITS LAB LGFRF(LOINC >60mL/min/1.73m ) 2 eGFR >60 Result Comment: If the patient is , multiply the result by 1.210. Performed By: #### LGFR #### [facility] [address] [place] [address] D-DIMER QUANTITATIVE Collected: 03/02/2018 Status: F Source: [facility] 5:40 AM HEALTH SYSTEM REPOSITORY TYPE CODE TESTS RESULT OUT OF REFERENCE UNITS RANGE LAB LDMR(LOINC <450 ng/mL(FEU) ) D-Dimer Quantitative 285 Result Comment: The cutoff level recommended for the exclusion of deep vein thrombosis (DVT) or pulmonary embolism (PE) is 450 ng/mL(FEU). It is recommended that DVT or PE exclusion be restricted to suspected outpatients with a low to moderate pretest probability model. Performed By: #### LDMR #### [place] [address] ED PROV NOTE Observed: 03/02/2018 Status: COMPLETED Source: [facility] 5:35 AM [facility] REPOSITORY O ID: [id number] Author: Marcelino No MD Service: Emergency Medicine Author Type: Physician Type: ED Provider Notes Filed: 03/02/2018 7:50 AM Note Text: ED Provider Note Patient Name: Mariebll Reis SERVICE DATE: 03/02/18 History Patient presents with: Pain, Extremity Maribell Reis is a 47 year old male with history of no chronic medical problems who presents with Pain, Extremity. Patient took nothing for this prior to arrival. - Symptoms began 3 days prior to arrival. - Severity: moderate - Timing: constant - Quality: dull and sore - Pain, Extremity is exacerbated by movement palpation. - Pain, Extremity is not exacerbated by elevation. - Symptoms are associated with warmth and swelling. - Symptoms are not associated with chest pain and shortness of breath. - Improved by rest. - Not improved by standing No recent medical eval. Smoker, no injury. Long car trip recently . . PAST MEDICAL HISTORY Diagnosis Date - Lumbago - Other dyschromia 02/08/2008 Done on L arm in : not done professionally - Tobacco use disorder 02/08/2008 PAST SURGICAL HISTORY Procedure Laterality Date - NONE FAMILY HISTORY Problem Relation Age of Onset - Coronary Artery Disease Father MA age 56, stents - Hypertension Father - None Mother - Cancer Maternal Aunt lymphoma Social History Social History Main Topics - Smoking status: Current Every Day Smoker Packs/day: 2.00 Years: 25.00 Types: Cigarettes - Smokeless tobacco: Never Used - Alcohol use No - Drug use: No - Sexual activity: Not on file ALLERGIES No Known Allergies Review of Systems Constitutional: Negative for chills and fever. Respiratory: Negative for chest tightness and shortness of breath. Cardiovascular: Positive for chest pain and leg swelling. Negative for palpitations. Gastrointestinal: Negative for nausea and vomiting. Musculoskeletal: Negative for back pain and neck pain. Skin: Negative for color change, pallor, rash and wound. Allergic/Immunologic: Negative for environmental allergies, food allergies and immunocompromised state. Neurological: Negative for weakness and numbness. Psychiatric/Behavioral: Negative for confusion. The patient is not nervous/anxious. Physical Exam BP 120/78 Pulse 88 Temp (Src) 98.2 (Tympanic) Resp 16 Ht 6' 3 (1.91m) Wt 220 lb (99.8kg) SpO2 97% BMI 27.50 kg/(m2). Physical Exam Constitutional: He is oriented to person, place, and time. He appears well-developed and well-nourished. No distress. HENT: Head: Normocephalic and atraumatic. Right Ear: External ear normal. Left Ear: External ear normal. Eyes: EOM are normal. Right eye exhibits no discharge. Left eye exhibits no discharge. No scleral icterus. Neck: Normal range of motion. Neck supple. No JVD present. No tracheal deviation present. Cardiovascular: Normal rate and regular rhythm. Pulmonary/Chest: Effort normal and breath sounds normal. No respiratory distress. He has no wheezes. Musculoskeletal: Normal range of motion. He exhibits edema and tenderness. He exhibits no deformity. Tender over left achilles and then it migrates up calf. Nothing in popliteal fossa. Mild edma to ankle. Neurological: He is alert and oriented to person, place, and time. No sensory deficit. He exhibits normal muscle tone. Coordination normal. Skin: Skin is warm and dry. Capillary refill takes less than 2 seconds. No rash noted. He is not diaphoretic. No erythema. No pallor. Psychiatric: He has a normal mood and affect. His behavior is normal. Judgment and thought content normal. Diagnostic Testing ED Labs Ordered and Reviewed - No data to display Procedures ED Course / Clinical Impression MDM / Disposition / Plan patient has not been to a physician in 10 years time, check some basic labs he needs an ultrasound to rule out DVT this will be available in the next 2 hours patient is okay with staying in the department at this time waiting no respiratory distress chest pain or other acute symptoms patient declines any analgesic DispositionThe patient was other (comment) (signed over to Dr Marshall at [phone]). Condition at disposition is stable. SIGNATURE: MD Marcelino Fontenot MD 03/02/18 0750 ED NOTE Observed: 03/02/2018 Status: COMPLETED Source: PILOT KNOB 5:16 AM [facility] REPOSITORY HNO ID: [id number] Author: Marcelino (Rn) KARLEE Cedeño Service: Emergency Medicine Author Type: Registered Nurse Type: ED Notes Filed: 03/02/2018 5:31 AM Note Text: Presents to ER with Left lower leg pain x3 days. C/O POP and pain with walking. No injury. No fevers or N/V. Reports leg was swollen and warm. Also reports redness that comes and goes. No treatment for pain since pain started. Reports he recently returned from a work trip to [place] with car travel of 5.[address] No SOB or trouble breathing. ALLERGIES ALLERGIES DATE TYPE / CODE NAME / CODE REACTION SEVERITY SOURCE 06/20/2018 Drug No Known Unknown [place] [facility] Allergy/416 Allergies/J78435 [facility] 781244(SNOM 0388(RXNORM) Repository ED CT) Drug NO KNOWN [facility] Class/10072 ALLERGIES [place] 1003(SNOMED Repository CT) ENCOUNTERS ENCOUNTERS ADMIT/DISCHARGE ACCOUNT NUMBER ADMITTING ENCOUNTER LOCATION SOURCE CLASS 08/16/2018/08/16/19 [id number] Ambulatory AMBVASMHBuil [facility] 19 ding:AMBVASM General HRoom: EX01 Health Center Repository 07/26/2018/07/26/20 [id number] Emergency [id number] [facility] 18 g:EMERRoom: General CC36Lqa: 1 Health Center Repository 07/12/2018 [id number] Ambulatory [facility] ding:ONC Repository 07/07/2018/07/08/20 [id number] Ambulatory [address] [place] Repository 06/30/2018 [id number] Ambulatory [facility] ding:CT Repository 06/20/2018/06/22/20 [id number] White, Mattie Inpatient [address] ding:PCURoom Repository : XUM470Pbg: 1 06/20/2018 [id number] White, Mattie Ambulatory BMSBuilding: [place] BMS.[facility] [place] 06/20/2018 [id number] White, Mattie Ambulatory BMSBuilding: [place] BMS.[facility] Repository 06/20/2018 [id number] White, Mattie Ambulatory BMSBuilding: [place] BMS.CF[facility] 06/20/2018 [id number] White, Mattie [facility]ulatory [facility] [facility] 06/20/2018 [id number] White, Mattie Ambulatory BMSBuilding: [place] BMS.[facility] Repository 06/20/2018/06/22/20 [id number] Ambulatory BMSBuilding: [place] [facility] Repository 06/20/2018 [id number] Ambulatory BMSBuilding: [place] BMS.[facility] Repository 06/18/2018/06/19/20 [id number] Emergency [address] ding:ED Repository 06/18/2018/06/18/20 [id number] Emergency [address] Other [place] Repository PAYERS PAYERS ENCOUNTER GUARANTOR 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 SOURCE 08/16/2018 MARIBELL REIS Primary MARIBELL Busby [facility] SrDOB: Insurance:VJ REIS SrDOB: [facility] [id number] RUN Number: Effective [address] Repository [place], [place] Date:4682-21-97Purs [place], [place] [address]Gsk: 330) Name:Edilma [email or web address] [phone] (HP) Marjorie: (HP) (WP) 07/26/2018 MARIBELL Qi VEGALE Primary MARIBELL Busby [facility] SrDOB: Insurance:MEDICAL CHATO SrDOB: [facility] [id number] [address] RUN Number: Effective [address] Repository [place], [place] Date:2008-07-27 - [place], [place] [address]Sip: [phone] [id number] Name:Edilma [email or web address] [phone] (HP) Marjorie: (HP) (WP) 07/12/2018 MARIBELL Qi CHATO Primary MARIBELL Serranooster Sr.1927 [address] Insurance:MEDICAL CHATO Sr.: [id number] [address]Jyt: (216) Number: Repository [phone] () [id number] Date:[id number] [address]MD: 07/12/2018 Secondary NOT GIVENUNK Jassi Insurance:SELF PAY [facility] Number: Effective Repository Date:2018-07-08 06/30/2018 MARIBELL VEGALE Primary MARIBELL Serranooster Sr[address]1927 [address] Insurance:MEDICAL CHATO Sr.: [facility] [id number] Hospital [address]Khd: (216) Number: Repository [phone] () [id number] Date:[id number] [address]AB: 06/30/2018 Secondary NOT GIVENUNK Jassi Insurance:SELF PAY [facility] Number: Effective Repository Date:2018-06-22 06/20/2018 MARIBELL REIS Primary MARIBELL Busby [place] Sr.1927 [address] Insurance:MEDICAL CHATO Sr.: [facility] [id number] Hospital [address]Nou: (216) Number: Repository [phone] () [id number] Date:0881-22-56YH [address] [address]ST: 06/20/2018 Secondary NOT GIVENUNK [place] Insurance:SELF PAY [facility] Number: Effective Repository Date:2018-06-20 06/20/2018 MARIBELL REIS Primary MARIBELL Busby [place] Sr.1927 Insurance:MEDICAL CHATO Sr.: [facility] [id number] Number: Repository [id number]: (216) [id number] [phone] () Date:[id number] [address] [address]HT: 06/20/2018 Secondary NOT GIVENUNK Jassi Insurance:SELF PAY [facility] Number: Effective Repository Date:2018-06-20 06/20/2018 MARIBELL REIS Primary MARIBELL Busby [place] Sr[address]1927 [address] Insurance:MEDICAL CHATO Sr.: [facility] [id number] Hospital [address]Uyi: (216) Number: Repository [phone] () [id number] Date:[id number] [address] [address]EH: 06/20/2018 Secondary NOT GIVENUNK [place] Insurance:SELF PAY [facility] Number: Effective Repository Date:2018-06-20 06/20/2018 MARIBELL REIS Primary MARIBELL Busby [place] Sr[address]1927 [address] Insurance:MEDICAL CHATO Sr.: [facility] [id number] Hospital [address]Fan: (216) Number: Repository [phone] () [id number] Date:2914-34-63SB [address] [address]XY: 06/20/2018 Secondary NOT GIVENUNK [place] Insurance:SELF PAY [facility] Number: Effective Repository Date:2018-06-20 06/20/2018 MARIBELL REIS Primary MARIBELL Busby [place] Sr[address]1927 [address] Insurance:MEDICAL CHATO .: [facility] [id number] Hospital [address]Hgs: (216) Number: Repository [phone] () [id number] Date:7517-57-75EQ [place] [address]WP: 06/20/2018 Secondary NOT GIVENUNK [place] Insurance:SELF PAY [facility] Number: Effective Repository Date:2018-06-20 06/20/2018 MARIBELL REIS Primary MARIBELL Serranooster Sr[address]1927 [address] Insurance:MEDICAL CHATO .: [facility] [id number] Hospital [address]Jlh: (216) Number: Repository [phone] () [id number] Date:3619-60-01QM [place] 36[address]WP: 06/20/2018 Secondary NOT GIVENUNK [place]ass[place] Insurance:SELF PAY [facility] Number: Effective Repository Date:2018-06-20 06/20/2018 MARIBELL REIS Primary MARIBELL Serranooster Sr[address]1927 [address] Insurance:MEDICAL CHATO [facility]: [facility] [id number] Hospital [address]Hzz: (216) Number: Repository [phone] () [id number] Date:4861-73-27AK [address] [address]YV: 06/20/2018 Secondary NOT GIVENUNK [place] Insurance:SELF PAY [facility] Number: Effective Repository Date:2018-06-20 06/20/2018 MARIBELL REIS Primary MARIBELL Busby [place] Sr.1927 Insurance:MEDICAL CHATO Sr.: [facility] [id number] Number: Repository [id number]: [phone] [id number] [phone] (HP) Date:5015-00-43BS [address] [address]GP: 06/20/2018 Secondary NOT GIVENUNK [place] Insurance:SELF PAY [facility] Number: Effective Repository Date:2018-06-20 06/18/2018 MARIBELL REIS Primary MARIBELL Busby [place] Sr.1927 Insurance:MEDICAL CHATO .: [facility] [id number] Number: Repository [phone]: ([phone]) [id number] [phone] (HP) Date:5108-36-03FA [address] [address]KG: 06/18/2018 Secondary NOT GIVENUNK Jass[place] Insurance:SELF PAY [facility] Number: Effective Repository Date:2018-06-18
== END ==
PROVIDERS: Family Provider Family Medicine; PCP Family Medicine
DX: R91.1 Solitary pulmonary nodule (principal)
CPT/HCPCS: 78815; A9552